=== PATIENT | female | born 1965 | race Two or more races ===

== ENCOUNTER 2016-10-06 19:42 | Emergency (ER) | payer MEDICAID ==
--- NOTE | 2016-10-06 19:45 | ED Physician Chart ---
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 Also has acute, nonproductive, moderate, worse at night, cough 4 days. Has associated upper respiratory congestion. Denies fevers, shortness of breath, chest pain or palpitations, nausea, vomiting, abdominal pain, gross hematuria, gross blood in stool. Allergies:: Allergies Allergy/AdvReac Type Severity Reaction Status Date / Time No Known Allergies Allergy Verified 01/15/16 11:22 Historian:: Patient Review:: Nurse's Note Reviewed Review of Systems - Review of Systems Other: Complete system review otherwise unremarkable except as noted in history of present illness. Past Medical History - Past Medical History Past Medical History: HTN, DM, Dyslipidemia Family History: None Social History: Non Smoker, No Alcohol, No Drug Use, Other Surgical History: None Psychiatricy History: None Medication: Reviewed Family Medical History - Family Member Mother History Unknown: Yes Ethnicity: Living Status: Hx Family Cancer: No Hx Family Coronary Artery Disease: No Hx Family Congestive Heart Failure: No Hx Family Hypertension: No Physical Exam - Physical Examination Other:: INITIAL VITAL SIGNS: Reviewed by me GENERAL: Alert and interactive. No acute distress HEAD: Head is normocephalic and atraumatic EYES: EOMI. PERRL. No scleral icterus. No conjunctival injection ENT: Moist mucous membranes. NECK: Supple. No masses. Full range of motion RESPIRATORY: No tachypnea. Prolonged expiratory phase bilaterally otherwise clear to auscultation. No wheezing, rales, or rhonchi CV: Regular rate and rhythm. No murmurs, rubs, or gallops ABDOMEN: Soft, non-distended, slight suprapubic tenderness. No guarding. No rebound. No masses. EXTREMITIES: No deformity. No cyanosis. No edema. SKIN: Warm and dry. No obvious rashes. NEUROLOGIC: Alert and oriented. Face is symmetric. Speech is normal. Moves all extremities equally. Motor and sensory distally intact. Labs/Radiology/EKG Results - Lab Results Results: Lab Results 10/06/16 10/06/16 10/06/16 Range/Units 20:00 20:00 20:08 WBC 7.6 D (4.8-10.8) Th/cmm RBC 4.51 (3.80-5.10) Mil/cmm Hgb 12.5 (11.7-15.5) gm/dL Hct 37.4 (35.0-45.0) % MCV 82.8 (81-100) fl MCH 27.7 (27.0-31.0) pg MCHC Differential 33.5 (28.0-36.0) pg RDW 13.3 (11.5-20.0) % Plt Count 385 D (150-400) Th/cmm MPV 6.7 fl Neutrophils % 63.7 (40.0-80.0) % Lymphocytes % 27.5 (20.0-50.0) % Monocytes % 5.6 (2.0-10.0) % Eosinophils % 2.8 (0.0-5.0) % Basophils % 0.4 (0.0-2.0) % Sodium (136-145) mEq/L Potassium (3.5-5.1) mEq/L Chloride (98-107) mEq/L Carbon Dioxide (21.0-31.0) mEq/L Anion Gap (7.0-16.0) BUN (7-25) mg/dL Creatinine (0.6-1.2) mg/dL Est GFR ( Amer) (>90) ml/min Est GFR (Non-Af Amer) ml/min BUN/Creatinine Ratio Glucose (70-105) mg/dL Calcium (8.6-10.3) mg/dL Total Bilirubin (0.3-1.0) mg/dL AST (13-39) U/L ALT (7-52) U/L Alkaline Phosphatase (34-104) U/L Total Protein (6.0-8.3) gm/dL Albumin (3.7-5.3) gm/dL Globulin gm/dL Albumin/Globulin Ratio (1.0-1.8) Urine Source CLEAN C Urine Color YELLOW Urine Clarity CLOUDY H (CLEAR) Urine pH 6.5 Ur Specific [place] 1.020 (1.005-1.030) Urine Protein NEGATIVE (NEGATIVE) mg/dL Urine Glucose (UA) NEGATIVE (NEGATIVE) mg/dL Urine Ketones NEGATIVE (NEGATIVE) mg/dL Urine Blood MODERATE H (NEGATIVE) Urine Nitrate NEGATIVE (NEGATIVE) Urine Bilirubin NEGATIVE (NEGATIVE) Urine Urobilinogen 0.2 (0.2 - 1.0) E.U./dL Ur Leukocyte Esterase MODERATE H (NEGATIVE) Urine RBC 5-10 H (0-5) /hpf Urine WBC 6-10 H (0-5) /hpf Ur Epithelial Cells NONE SEEN (FEW) /lpf Urine Bacteria NONE SEEN (NONE SEEN) /hpf Urine Test NEGATIVE 10/06/16 Range/Units 20:08 WBC (4.8-10.8) Th/cmm RBC (3.80-5.10) Mil/cmm Hgb (11.7-15.5) gm/dL Hct (35.0-45.0) % MCV (81-100) fl MCH (27.0-31.0) pg MCHC Differential (28.0-36.0) pg RDW (11.5-20.0) % Plt Count (150-400) Th/cmm MPV fl Neutrophils % (40.0-80.0) % Lymphocytes % (20.0-50.0) % Monocytes % (2.0-10.0) % Eosinophils % (0.0-5.0) % Basophils % (0.0-2.0) % Sodium 141 (136-145) mEq/L Potassium 4.0 (3.5-5.1) mEq/L Chloride 101 (98-107) mEq/L Carbon Dioxide 26.2 (21.0-31.0) mEq/L Anion Gap 17.8 H (7.0-16.0) BUN 9 (7-25) mg/dL Creatinine 0.7 (0.6-1.2) mg/dL Est GFR ( Amer) > 60.0 (>90) ml/min Est GFR (Non-Af Amer) > 60.0 ml/min BUN/Creatinine Ratio 12.9 Glucose 145 H (70-105) mg/dL Calcium 9.9 (8.6-10.3) mg/dL Total Bilirubin 1.0 (0.3-1.0) mg/dL AST 13 (13-39) U/L ALT 18 (7-52) U/L Alkaline Phosphatase 80 (34-104) U/L Total Protein 7.8 (6.0-8.3) gm/dL Albumin 4.3 (3.7-5.3) gm/dL Globulin 3.5 gm/dL Albumin/Globulin Ratio 1.2 (1.0-1.8) Urine Source Urine Color Urine Clarity (CLEAR) Urine pH Ur Specific [place] (1.005-1.030) Urine Protein (NEGATIVE) mg/dL Urine Glucose (UA) (NEGATIVE) mg/dL Urine Ketones (NEGATIVE) mg/dL Urine Blood (NEGATIVE) Urine Nitrate (NEGATIVE) Urine Bilirubin (NEGATIVE) Urine Urobilinogen (0.2 - 1.0) E.U./dL Ur Leukocyte Esterase (NEGATIVE) Urine RBC (0-5) /hpf Urine WBC (0-5) /hpf Ur Epithelial Cells (FEW) /lpf Urine Bacteria (NONE SEEN) /hpf Urine Test - Radiology Results Results: Single AP VIEW Portable Chest X-ray was interpreted independently and contemporaneously by Jorge Ponce MD: No cardiomegaly Normal mediastinum No lung infiltrates No pneumothorax No soft tissue or bony abnormalities ED Septic Shock - . Is Septic Shock (SBP<90, OR Lactate>4 mmol\L) present?: No Reassessment (Disposition) - Reassessment Reassessment:: Patient has cough 2 weeks. Has acute bronchitis. UTI per UA. We'll prescribe Macrobid. Recommend follow up PCP 1-2 days. Return to ER precautions. Patient understands and agrees the plan. Reassessment Condition:: Improved - Diagnosis Diagnosis:: Acute cough due to Acute bronchitis, unspecified Acute urinary tract infection - Aftercare/Follow up Instructions Aftercare/Follow-Up Instructions:: Counseled pt regarding lab results/diagnosis & need follow up, Refer to Discharge Instructions Medication Prescribed:: Macrobid Ibuprofen Tessalon Perles - Patient Disposition Time:: 21:22 Condition at Disposition:: Improved ED Discharge Plan - Patient Disposition Admit/Discharge/Transfer: PT DISCHARGED HOME Condition at Disposition: Improved Instructions: Bronchitis, [id number], Urinary Tract Infection
[2016-10-06] MEDS ORDERED: Sodium Chloride 0.9% 1,000 ML IV ONE (20:12)
[2016-10-06] MEDS ORDERED: Dexamethasone Sodium Phos 4 mg/mL Vial IVP STA (20:14)
[2016-10-06 20:16] LABS: % BASOPHILS 0.4 % (0.0-2.0); % EOSINOPHILS 2.8 % (0.0-5.0); % LYMPHOCYTES 27.5 % (20.0-50.0); % MONOCYTES 5.6 % (2.0-10.0); % NEUTROPHILS 63.7 % (40.0-80.0); HEMATOCRIT 37.4 % (35.0-45.0); HEMOGLOBIN 12.5 gm/dL (11.7-15.5); MEAN CELL VOLUME 82.8 fl (81-100); MEAN CORPUSCULAR HEMOGLOBIN 27.7 pg (27.0-31.0); MEAN CORPUSCULAR HGB CONC 33.5 pg (28.0-36.0); MEAN PLATELET VOLUME 6.7 fl; NEUTROPHILE ABSOLUTE 4.9 Th/cmm (1.8-8.0); RED BLOOD COUNT 4.51 Mil/cmm (3.80-5.10); RED CELL DISTRIBUTION WIDTH 13.3 % (11.5-20.0)
[2016-10-06] MEDS ORDERED: Dexamethasone Sodium Phos 10 mg/mL PF Vial ONE (20:22)
[2016-10-06 20:36] LABS: ALB/GLOB RATIO 1.2 (1.0-1.8); ALKALINE PHOSPHATASE 80 U/L (34-104); ANION GAP 17.8 (7.0-16.0); BUN - UREA NITROGEN 9 mg/dL (7-25); BUN/CREATININE RATIO 12.9; CALCIUM SERUM 9.9 mg/dL (8.6-10.3); CARBON DIOXIDE 26.2 mEq/L (21.0-31.0); CHLORIDE 101 mEq/L (98-107); CREATININE - SERUM 0.7 mg/dL (0.6-1.2); GLUCOSE 145 mg/dL (70-105); SGOT 13 U/L (13-39); SGPT/ALT 18 U/L (7-52); SODIUM SERUM 141 mEq/L (136-145)
[2016-10-06 20:39] LABS: WHITE BLOOD COUNT 7.6 Th/cmm (4.8-10.8)
[2016-10-06 20:40] LABS: PLATELET COUNT 385 Th/cmm (150-400)
[2016-10-06 20:42] LABS: URINE BILIRUBIN NEGATIVE (NEGATIVE); URINE BLOOD MODERATE (NEGATIVE); URINE COLOR YELLOW; URINE GLUCOSE (UA) NEGATIVE (NEGATIVE); URINE KETONE NEGATIVE (NEGATIVE); URINE PH 6.5; URINE PROTEIN NEGATIVE (NEGATIVE); URINE UROBILINOGEN 0.2 E.U./dL (0.2 - 1.0)
[2016-10-06 20:43] LABS: URINE BACTERIA NONE SEEN /hpf (NONE SEEN); URINE EPITHELIAL CELLS NONE SEEN /lpf (FEW)
[2016-10-06] MEDS ORDERED: Morphine Sulfate 2 mg/mL 1mL Syr IVP ONE (21:34)
[2016-10-06] MEDS ORDERED: Morphine Sulfate 2 mg/mL 1mL Syr ONE (21:36)
--- NOTE | 2016-10-07 09:41 | Diagnostic Imaging Report ---
CHEST X-RAY: AP view INDICATION: Cough COMPARISON: 01/28/2016 FINDINGS: There is no focal consolidation or pleural effusions The heart is normal in size. The osseous structures demonstrate no acute abnormalities. IMPRESSION: No focal airspace consolidation identified.
== END 2016-10-06 21:55 | disposition home or self-care (01) ==
LOC: ER 19:42
DX: N39.0 Urinary tract infection, site not specified (principal); J20.9 Acute bronchitis, unspecified; I10 Essential (primary) hypertension; E11.9 Type 2 diabetes mellitus without complications; E78.5 Hyperlipidemia, unspecified
CPT/HCPCS: 99285; 96374; 96375; 71010; 36415; 85025; 81001; 81025; 80053; J2270; J1885; J2405; J7030

== ENCOUNTER 2016-10-14 10:13 | Emergency (ER) | payer MEDICAID ==
[2016-10-14 10:35] VITALS: BP 124/69
--- NOTE | 2016-10-14 11:17 | ED Physician Chart ---
Chief Complaint/HPI - Patient Information Date Seen:: 10/14/16 Time Seen:: 11:12 Chief Complaint:: abd pain History of Present Illness:: pt reports severe pain low pelvis w rad to low back x 1 week. was seen at [facility] last nt and had ct and labs...was dxd w pyelonephritis and given a abx pill. was giv3n rx for abx but hasnt filled. has worse pain and nausea this am. no vomiting. no fever but had chills 3 d.a. no change bm. she was dxd recently w a vaginal-rectal fistula and is having trouble determining how to get to sx for this. s/p hysterectomy 06/17/16 has dm,htn chronic migraaines(on norco for), vag-rect fistula, htn, gastritis, hernia x 2 Allergies:: Allergies Allergy/AdvReac Type Severity Reaction Status Date / Time No Known Allergies Allergy Verified 01/15/16 11:22 Vitals:: Vital Signs - 8 hr 10/14/16 10/14/16 10:35 10:36 Temp 98.2 F HR 74 RR 16 BP 124/69 124/69 O2 Sat % 98 Historian:: Patient Review of Systems - Review of Systems General/Constitutional: No fever, No chills, No weight loss, No weakness, No diaphoresis, No edema, No loss of appetite Skin: No skin lesions, No rash, No bruising Head: No headache, No light-headedness Eyes: No loss of vision, No pain, No diplopia ENT: No earache, No nasal drainage, No sore throat, No tinnitus Neck: No neck pain, No swelling, No thyromegaly, No stiffness, No mass noted Cardio Vascular: No chest pain, No palpitations, No PND, No orthopnea, No edema Pulmonary: No SOB, No cough, No sputum, No wheezing GI: Nausea, No vomiting, No diarrhea, Pain, No melena, No hematochezia, No constipation, No hematemesis G/U: No dysuria, No frequency, No hematuria Correctional Lieutenant: Vaginal discharge (occas slt bloody) Musculoskeletal: No bone or joint pain, No back pain, No muscle pain Endocrine: No polyuria, No polydipsia Psychiatric: No prior psych history, No depression, No anxiety, No suicidal ideation Hematopoietic: No bruising, No lymphadenopathy Allergic/Immuno: No urticaria, No angioedema Neurological: No syncope, No focal symptoms, No weakness, No paresthesia, No headache, No seizure, No dizziness, No confusion, No vertigo Past Medical History - Past Medical History Past Medical History: HTN, DM, PUD/GERD, Other (dm,htn chronic migraaines(on norco for), vag-rect fistula, htn, gastritis, hernia x 2) Social History: Other (lives w family) Surgical History: Hysterectomy Medication: Reviewed Family Medical History - Family Member Mother History Unknown: Yes Ethnicity: Living Status: Hx Family Cancer: No Hx Family Coronary Artery Disease: No Hx Family Congestive Heart Failure: No Hx Family Hypertension: No Physical Exam - Physical Examination General/Constitutional: Awake, Well-developed, well-nourished, Alert, No distress, GCS 15, Non-toxic appearing, Ambulatory Other Gen/Cons comments:: mod obese/alert seems upset...speaks very good thai but prefers to speak sp and let dtr translate usually. wn/wh. Head: Atraumatic Eyes: Lids, conjuctiva normal, PERRL, EOMI Skin: Nl inspection, No rash, No skin lesions, No ecchymosis, Well hydrated, No lymphadenopathy ENMT: External ears, nose nl, Nasal exam nl, Lips, teeth, gums nl Neck: Nontender, Full ROM w/o pain, No JVD, No nuchal rigidity, No bruit, No mass, No stridor Respiratory: Nl effort/Exclusion, Clear to Auscultation, No Wheeze/Rhonchi/Rales Cardio Vascular: RRR, No murmur, gallop, rubs, NL S1 S2 GI: No organomegaly, No hernia, Normal BS's, Nondistended, No mass/bruits, No McBurney tenderness Other GI comments:: tndr low abd and cva regions bilat. ok mobility. pos nabs. no rebound tndr. : No CVA tenderness Extremities: No tenderness or effusion, Full ROM, normal strength in all extremities, No edema, Normal digits & nails Neuro/Psych: Alert/oriented, DTR's symmetric, Normal sensory exam, Normal motor strength, Mood normal, Normal gait, No focal deficits Misc: normal gait, Normal back, No paraspinal tenderness Labs/Radiology/EKG Results - Lab Results Results: Laboratory Tests 10/14/16 10/14/16 10/14/16 10:45 10:45 11:23 WBC 7.0 RBC 4.29 Hgb 12.2 Hct 35.2 MCV 82.1 MCH 28.5 MCHC Differential 34.8 RDW 13.2 Plt Count 287 D MPV 7.0 Neutrophils % 63.9 Lymphocytes % 26.4 Monocytes % 6.3 Eosinophils % 2.5 Basophils % 0.9 Sodium Potassium Chloride Carbon Dioxide Anion Gap BUN Creatinine Est GFR ( Amer) Est GFR (Non-Af Amer) BUN/Creatinine Ratio Glucose Hemoglobin A1c % Calcium Total Bilirubin AST ALT Alkaline Phosphatase Total Protein Albumin Globulin Albumin/Globulin Ratio Urine Source CLEAN C Urine Color YELLOW Urine Clarity CLEAR Urine pH 7.0 Ur Specific [place] 1.010 Urine Protein NEGATIVE Urine Glucose (UA) NEGATIVE Urine Ketones NEGATIVE Urine Blood TRACE Urine Nitrate NEGATIVE Urine Bilirubin NEGATIVE Urine Urobilinogen 0.2 Ur Leukocyte Esterase NEGATIVE Urine RBC 1-3 Urine WBC 2-5 Ur Epithelial Cells FEW Urine Bacteria NONE SEEN Urine Test NEGATIVE 10/14/16 10/14/16 11:23 11:23 WBC RBC Hgb Hct MCV MCH MCHC Differential RDW Plt Count MPV Neutrophils % Lymphocytes % Monocytes % Eosinophils % Basophils % Sodium 137 Potassium 4.2 Chloride 103 Carbon Dioxide 25.8 Anion Gap 12.4 BUN 13 Creatinine 0.7 Est GFR ( Amer) > 60.0 Est GFR (Non-Af Amer) > 60.0 BUN/Creatinine Ratio 18.6 Glucose 186 H Hemoglobin A1c % 6.4 H Calcium 9.5 Total Bilirubin 1.3 H AST 16 ALT 25 Alkaline Phosphatase 78 Total Protein 7.2 Albumin 4.1 Globulin 3.1 Albumin/Globulin Ratio 1.3 Urine Source Urine Color Urine Clarity Urine pH Ur Specific [place] Urine Protein Urine Glucose (UA) Urine Ketones Urine Blood Urine Nitrate Urine Bilirubin Urine Urobilinogen Ur Leukocyte Esterase Urine RBC Urine WBC Ur Epithelial Cells Urine Bacteria Urine Test - Radiology Results Results: ct abd/p result reviewed from 10/13/16 essentially nrml study. fistula was not seen. uterous sx absent. no inflamation or free air. mild diverticulosis, small fat protrusion into umbilicus also reviewed w family ct abd/p from 07/24 which showed pt "may have a vaginal- colonic fistula" ED Septic Shock - . Is Septic Shock (SBP<90, OR Lactate>4 mmol\\L) present?: No - <6hrs of presentation: Vital Signs: Vital Signs - 8 hr 10/14/16 10/14/16 10:35 10:36 Temp 98.2 F HR 74 RR 16 BP 124/69 124/69 O2 Sat % 98 Reassessment (Disposition) - Reassessment Reassessment:: case dw dr mcfarland (2;56) says she admitted pt here 1 ma and couldnt do much for her here bc sx here are not contracted to her insurance. i agree...in my opinion pt seems ok for dc home ...seems stable. no n/v seen in ed. pt c/o pain but admits it has dropped from 03/16 to 11/14 ...am giving additional dose of ms now. pt seems convinced that fistula repair would be considered if she was admit...have tried to explain mult x this is unlikely ; however I think this was the main reason pt here today. will dc w levaquin rx. pt has norco at home. may return if severe n/v and dehydration or worse pain or high fever. Reassessment Condition:: Improved - Diagnosis Diagnosis:: 1 pyelonephritis 2 abdominal pain 3 vaginal-rectal fistula by history - Aftercare/Follow up Instructions Aftercare/Follow-Up Instructions:: Counseled pt & family regarding lab results/ diagnosis & need follow up Notes:: rx levaquin 500/dx2wk. dw pt need to see pmd for sx referral. may return if worse pain or n/v dehydration or high fever. - Patient Disposition Discharge/Transfer:: Home Condition at Disposition:: Improved
[2016-10-14] MEDS ORDERED: Morphine Sulfate 4 mg/mL 1mL Syr ONE ×2 (11:26→14:59)
[2016-10-14 11:31] LABS: % BASOPHILS 0.9 % (0.0-2.0); % EOSINOPHILS 2.5 % (0.0-5.0); % LYMPHOCYTES 26.4 % (20.0-50.0); % MONOCYTES 6.3 % (2.0-10.0); % NEUTROPHILS 63.9 % (40.0-80.0); HEMATOCRIT 35.2 % (35.0-45.0); HEMOGLOBIN 12.2 gm/dL (11.7-15.5); MEAN CELL VOLUME 82.1 fl (81-100); MEAN CORPUSCULAR HEMOGLOBIN 28.5 pg (27.0-31.0); MEAN CORPUSCULAR HGB CONC 34.8 pg (28.0-36.0); NEUTROPHILE ABSOLUTE 4.5 Th/cmm (1.8-8.0); RED BLOOD COUNT 4.29 Mil/cmm (3.80-5.10); RED CELL DISTRIBUTION WIDTH 13.2 % (11.5-20.0)
[2016-10-14 11:35] LABS: PLATELET COUNT 287 Th/cmm (150-400)
[2016-10-14] MEDS: Sodium Chloride 0.9% 1,000 ML IV ONE (11:37)
[2016-10-14 11:45] LABS: ALB/GLOB RATIO 1.3 (1.0-1.8); ALKALINE PHOSPHATASE 78 U/L (34-104); ANION GAP 12.4 (7.0-16.0); BILIRUBIN,TOTAL 1.3 mg/dL (0.3-1.0); BUN - UREA NITROGEN 13 mg/dL (7-25); BUN/CREATININE RATIO 18.6; CALCIUM SERUM 9.5 mg/dL (8.6-10.3); CARBON DIOXIDE 25.8 mEq/L (21.0-31.0); CHLORIDE 103 mEq/L (98-107); CREATININE - SERUM 0.7 mg/dL (0.6-1.2); GLUCOSE 186 mg/dL (70-105); POTASSIUM SERUM 4.2 mEq/L (3.5-5.1); SGOT 16 U/L (13-39); SGPT/ALT 25 U/L (7-52); SODIUM SERUM 137 mEq/L (136-145)
[2016-10-14 11:50] LABS: URINE COLOR YELLOW
[2016-10-14 11:52] LABS: URINE BILIRUBIN NEGATIVE (NEGATIVE); URINE BLOOD TRACE (NEGATIVE); URINE GLUCOSE (UA) NEGATIVE (NEGATIVE); URINE KETONE NEGATIVE (NEGATIVE)
[2016-10-14 11:53] LABS: URINE PROTEIN NEGATIVE (NEGATIVE); URINE UROBILINOGEN 0.2 E.U./dL (0.2 - 1.0)
[2016-10-14 11:56] LABS: URINE BACTERIA NONE SEEN /hpf (NONE SEEN); URINE EPITHELIAL CELLS FEW /lpf (FEW)
[2016-10-14] MEDS ORDERED: Levofloxacin 500mg/100mL 500 MG/100 ML BAG IV ONE (14:30)
[2016-10-14] MEDS: Levofloxacin 500mg/100mL 500 MG/100 ML BAG IV ONE (14:35)
== END 2016-10-14 16:44 | disposition home or self-care (01) ==
LOC: ER 10:13
DX: N12 Tubulo-interstitial nephritis, not specified as acute or chronic (principal); R10.30 Lower abdominal pain, unspecified; I10 Essential (primary) hypertension; E11.9 Type 2 diabetes mellitus without complications; K21.9 Gastro-esophageal reflux disease without esophagitis; Z90.710 Acquired absence of both cervix and uterus
CPT/HCPCS: 99285; 96361; 96365; 96375; 96376; 36415; 85025; 81001; 83036; 81025; 80053; J2405; J1956; J7030

== ENCOUNTER 2016-10-18 21:14 | Emergency (ER) | payer MEDICAID ==
--- NOTE | 2016-10-18 21:28 | ED Physician Chart ---
Chief Complaint/HPI - Patient Information Date Seen:: 10/18/16 Time Seen:: 21:15 Chief Complaint:: Diffuse abdominal pain since about 8:30 pm today. History of Present Illness:: Pt is primarily Sinhala speaking. Interpretation is also provided by her niece Mercedes per pt's request. Pt c/o diffuse abdominal pain since about 8:30 pm today. Pain is characterized as crampy and constant. Pain can be aggravated with movements, improved with lying still. No fever. Transient nausea but no vomiting. Last BM at 6 pm today which was normal in color/consistency. No hematochezia or melena. ? mild dysuria. No frequency or urgency with urination. No vaginal bleeding or discharge. Pt states that she is still on antibiotic therapy for UTI, but she does not recall the name of the antibiotic. Pt had much you product for dinner prior to onset of her abdominal pain. Allergies:: Allergies Allergy/AdvReac Type Severity Reaction Status Date / Time No Known Allergies Allergy Verified 01/15/16 11:22 Vitals:: see Nurse Note. Historian:: Patient Family MD/PCP:: Dr. Lopez LMP:: Hystrectomy 06/17/16. Review:: Nurse's Note Reviewed Review of Systems - Review of Systems General/Constitutional: No fever, No chills, No weight loss, No weakness, No diaphoresis, No edema, No loss of appetite Skin: No rash, No bruising Head: No headache, No light-headedness Eyes: No loss of vision, No pain, No diplopia ENT: No earache, No nasal drainage, No sore throat Neck: No neck pain, No swelling, No thyromegaly, No stiffness, No mass noted Cardio Vascular: No chest pain, No palpitations, No PND, No orthopnea, No edema Pulmonary: No SOB, No cough, No wheezing GI: Nausea (transient), No vomiting, No diarrhea, Pain, No melena, No hematochezia, No constipation, No hematemesis G/U: No dysuria, No frequency, No hematuria Dna Sequencing Associate: No vaginal discharge, No abnormal vaginal bleed Musculoskeletal: No bone or joint pain, No back pain, No muscle pain Endocrine: No polyuria, No polydipsia Psychiatric: No prior psych history Hematopoietic: No bruising, No lymphadenopathy Allergic/Immuno: No urticaria, No angioedema Neurological: No syncope, No focal symptoms, No weakness, No paresthesia, No headache, No confusion Past Medical History - Past Medical History Past Medical History: HTN, DM, Dyslipidemia, PUD/GERD, Other (h/o migraine.) Family History: Diabetes Melitus (mother), HTN (mother) Social History: Non Smoker, No Alcohol, No Drug Use, Single, Other (lives with her sister.) Employment:: unemployed. Surgical History: Hysterectomy, ('04) Psychiatricy History: None Medication: Reviewed Family Medical History - Family Member Mother History Unknown: Yes Ethnicity: Living Status: Hx Family Cancer: No Hx Family Coronary Artery Disease: No Hx Family Congestive Heart Failure: No Hx Family Hypertension: No Physical Exam - Physical Examination General/Constitutional: Awake, Well-developed, well-nourished, Alert, GCS 15 Other Gen/Cons comments:: Breathes comfortably and speaks clearly. Pt is moderate to severe distress due to diffuse abdominal pain. Head: Atraumatic Eyes: Lids, conjuctiva normal, PERRL, EOMI Other Eyes comments:: Anicteric sclera. Skin: Well hydrated, No lymphadenopathy ENMT: External ears, nose nl, Nasal exam nl, Oropharynx nl, Tonsils nl Neck: Nontender, Full ROM w/o pain, No JVD, No nuchal rigidity, No mass, No stridor Respiratory: Nl effort/Exclusion, Clear to Auscultation, No Wheeze/Rhonchi/Rales Cardio Vascular: RRR, No murmur, gallop, rubs GI: No organomegaly, No hernia, Normal BS's, Nondistended, No mass/bruits, No McBurney tenderness Other GI comments:: Obese but soft. Diffuse tenderness to palpation. No R/G. Rectal exam: deferred per pt's request. : No CVA tenderness Other comments:: Pelvic exam: deferred per pt's request. Extremities: No edema Neuro/Psych: Alert/oriented (oriented x 3), Judgement/insight normal, Mood normal, No focal deficits Labs/Radiology/EKG Results - Lab Results Results: Laboratory Tests 10/18/16 10/18/16 10/18/16 21:40 21:50 21:50 WBC 7.2 RBC 4.14 Hgb 11.8 Hct 34.9 L MCV 84.3 MCH 28.5 MCHC Differential 33.8 RDW 13.9 Plt Count 246 MPV 7.0 Neutrophils % 58.0 Lymphocytes % 33.0 Monocytes % 5.7 Eosinophils % 2.8 Basophils % 0.5 PT 9.7 INR 0.93 PTT (Actin FS) 23.6 L Sodium Potassium Chloride Carbon Dioxide Anion Gap BUN Creatinine Est GFR ( Amer) Est GFR (Non-Af Amer) BUN/Creatinine Ratio Glucose Calcium Total Bilirubin AST ALT Alkaline Phosphatase Creatine Kinase Troponin I Total Protein Albumin Globulin Albumin/Globulin Ratio Amylase Lipase Urine Source CLEAN C Urine Color YELLOW Urine Clarity HAZY Urine pH 8.5 Ur Specific [place] 1.020 Urine Protein NEGATIVE Urine Glucose (UA) NEGATIVE Urine Ketones NEGATIVE Urine Blood TRACE Urine Nitrate NEGATIVE Urine Bilirubin NEGATIVE Urine Urobilinogen 1.0 Ur Leukocyte Esterase TRACE H Urine RBC 0-2 Urine WBC 2-5 Ur Epithelial Cells MODERATE Amorphous Sediment MODERATE PHOSPHATES Urine Bacteria MODERATE 10/18/16 10/18/16 10/18/16 21:50 21:50 21:50 WBC RBC Hgb Hct MCV MCH MCHC Differential RDW Plt Count MPV Neutrophils % Lymphocytes % Monocytes % Eosinophils % Basophils % PT INR PTT (Actin FS) Sodium 138 Potassium 3.7 Chloride 106 Carbon Dioxide 26.0 Anion Gap 9.7 BUN 13 Creatinine 0.8 Est GFR ( Amer) > 60.0 Est GFR (Non-Af Amer) > 60.0 BUN/Creatinine Ratio 16.3 Glucose 154 H Calcium 9.1 Total Bilirubin 0.7 AST 19 ALT 29 Alkaline Phosphatase 68 Creatine Kinase 49 Troponin I 0.02 Total Protein 6.4 Albumin 3.8 Globulin 2.6 Albumin/Globulin Ratio 1.5 Amylase 50 Lipase 71 Urine Source Urine Color Urine Clarity Urine pH Ur Specific Seth Urine Protein Urine Glucose (UA) Urine Ketones Urine Blood Urine Nitrate Urine Bilirubin Urine Urobilinogen Ur Leukocyte Esterase Urine RBC Urine WBC Ur Epithelial Cells Amorphous Sediment Urine Bacteria - Radiology Results Results: CT abdomen and pelvis: Evidence of hepatic fatty infiltration. Small calcified gallstone. No pericholecystic inflammatory changes identified. No evidence of biliary dilatation. Spleen and pancreas are unremarkable. Kidneys are of normal size bilaterally with no evidence of hydronephrosis. Contrast within collecting systems limits evaluation for renal calculi. Small fat-containing umbilical hernia. No evidence of bowel obstruction. No evidence of appendicitis. Mild colonic diverticulosis without evidence of diverticulitis. Official report per Dr. Travis Posadas, radiologist. - EKG Interpretations EKG Time:: 21:11 Rate & Rhythm: NSR with VR 81 Comments:: NSSTT changes. ED Septic Shock - . Is Septic Shock (SBP<90, OR Lactate>4 mmol\L) present?: No Reassessment (Disposition) - Reassessment Reassessment:: 0050 Pt has been repeatedly evaluated. Pt feels much better without any significant abdominal pain or discomfort. Remaining lab and CT report just became available. Lab and CT findings have been reviewed with pt. Pt requests to go home now and does not want further observation/management in hospital. Pt states that she will follow with her PCP Dr. Lopez tomorrow. Aftercare instructions have been given. Interpretation is provided by her niece Mercedes, who will also drive her home and care for her Reassessment Condition:: Improved - Diagnosis Diagnosis:: Transient diffuse abdominal pain c/w gas pain, stable and improved. - Aftercare/Follow up Instructions Aftercare/Follow-Up Instructions:: Refer to Discharge Instructions Notes:: Avoid gas producing foodstuffs such as you, carbonated beverages, etc. Clear liquid diet for now. Abdominal pain instructions given. Drowsiness precautions given with the use of Dilaudid. F/U with PCP Dr. Lopez in one day for recheck. Return to ER immediately if condition worsens or if any further questions/problems. Medication Prescribed:: None - Patient Disposition Discharge/Transfer:: Home Time:: 01:05 Condition at Disposition:: Stable, Improved
[2016-10-18 21:57] LABS: % BASOPHILS 0.5 % (0.0-2.0); % EOSINOPHILS 2.8 % (0.0-5.0); % MONOCYTES 5.7 % (2.0-10.0); HEMATOCRIT 34.9 % (35.0-45.0); HEMOGLOBIN 11.8 gm/dL (11.7-15.5); MEAN CELL VOLUME 84.3 fl (81-100); MEAN CORPUSCULAR HEMOGLOBIN 28.5 pg (27.0-31.0); MEAN CORPUSCULAR HGB CONC 33.8 pg (28.0-36.0); NEUTROPHILE ABSOLUTE 4.2 Th/cmm (1.8-8.0); PLATELET COUNT 246 Th/cmm (150-400); RED BLOOD COUNT 4.14 Mil/cmm (3.80-5.10); RED CELL DISTRIBUTION WIDTH 13.9 % (11.5-20.0); WHITE BLOOD COUNT 7.2 Th/cmm (4.8-10.8)
[2016-10-18 22:11] LABS: AMYLASE SERUM 50 U/L (29-103); LIPASE 71 U/L (11-82)
[2016-10-18 22:12] LABS: INR 0.93 (0.5-1.4); PROTHROMBIN TIME (TEST) 9.7 SECONDS (9.5-11.5)
[2016-10-18 22:21] LABS: ALB/GLOB RATIO 1.5 (1.0-1.8); ALKALINE PHOSPHATASE 68 U/L (34-104); ANION GAP 9.7 (7.0-16.0); BILIRUBIN,TOTAL 0.7 mg/dL (0.3-1.0); BUN - UREA NITROGEN 13 mg/dL (7-25); BUN/CREATININE RATIO 16.3; CALCIUM SERUM 9.1 mg/dL (8.6-10.3); CHLORIDE 106 mEq/L (98-107); CREATININE - SERUM 0.8 mg/dL (0.6-1.2); GLUCOSE 154 mg/dL (70-105); POTASSIUM SERUM 3.7 mEq/L (3.5-5.1); SGOT 19 U/L (13-39); SGPT/ALT 29 U/L (7-52); SODIUM SERUM 138 mEq/L (136-145)
[2016-10-18] MEDS ORDERED: IOHEXOL 300MG/ML 100 ML VIAL ONE (22:25)
[2016-10-18] MEDS ORDERED: HYDROmorphone 1 mg/mL 1mL Syr ONE (22:26)
[2016-10-18] MEDS: HYDROmorphone 1 mg/mL 1mL Syr IVP STA (22:31)
[2016-10-18 22:45] LABS: URINE COLOR YELLOW
[2016-10-18 22:46] LABS: URINE BACTERIA MODERATE /hpf (NONE SEEN); URINE BILIRUBIN NEGATIVE (NEGATIVE); URINE BLOOD TRACE (NEGATIVE); URINE EPITHELIAL CELLS MODERATE /lpf (FEW); URINE GLUCOSE (UA) NEGATIVE (NEGATIVE); URINE KETONE NEGATIVE (NEGATIVE); URINE PH 8.5; URINE PROTEIN NEGATIVE (NEGATIVE); URINE RBC 0-2 /hpf (0-5)
[2016-10-18 22:47] LABS: URINE AMORPHOUS SEDIMENT MODERATE PHOSPHATES (NONE SEEN)
--- NOTE | 2016-10-19 11:29 | Diagnostic Imaging Report ---
CT abdomen and pelvis with intravenous contrast Indication: Diffuse abdominal pain Comparison: Previous CT abdomen and pelvis on 01/28/2016, Technique: Axial images were obtained from the lung bases to the bilateral proximal femurs with IV contrast. Coronal reconstructions were made. total DLP: [id number], CTDI12.9 FINDINGS: Hypoventilatory changes of the lung bases are noted. There is fatty infiltration of the liver. No evidence of focal hepatic lesions. Small calcified gallstone is noted. No evidence of surrounding inflammatory change. No focal splenic or pancreatic lesions. No focal adrenal lesions. No evidence of hydronephrosis or focal renal lesions. Moderate stool is noted. No evidence of acute appendicitis. Minimal diverticulosis. No diverticulitis. No evidence of free air or free fluid. Mild atherosclerosis is noted. Degenerative changes of the spine are noted. Small fat-containing hernia is seen along the umbilicus region. IMPRESSION: No evidence of acute appendicitis. No evidence of bowel obstruction. Small calcified gallstone. Consider follow-up with ultrasound. Minimal diverticulosis without diverticulitis. Small fat-containing hernia along the umbilical region. Fatty infiltration of the liver.
== END 2016-10-19 01:00 | disposition home or self-care (01) ==
LOC: ER 21:14
DX: R10.84 Generalized abdominal pain (principal); I10 Essential (primary) hypertension; E11.9 Type 2 diabetes mellitus without complications; E78.5 Hyperlipidemia, unspecified; K21.9 Gastro-esophageal reflux disease without esophagitis; Z90.710 Acquired absence of both cervix and uterus
CPT/HCPCS: 99285; 96374; 96375; 93005; 74177; 84484; 36415; 85025; 85610; 81001; 82150; 82550; 83690; 80053; J2405; J1170; Q9967

== ENCOUNTER 2017-03-05 18:06 | Emergency (ER) | payer MEDICAID ==
--- NOTE | 2017-03-05 18:45 | ED Physician Chart ---
ED Chief Complaint/HPI - Patient Information Date Seen:: 03/05/17 Time Seen:: 18:39 Chief Complaint:: right chest wall lesion History of Present Illness:: THIS IS A 51 YO FEMALE WHO PRESENTS FOR AN EVALUATION OF A LESION THAT STARTED ABOUT A MONTH AGO. SHE ALSO IS SCHEDULED FOR A RIGHT BREAST BIOPSY. SHE HAS DIABETES MELLITUS, ELEVATED LIPIDS AND HYPERTENSION. Allergies:: Allergies Allergy/AdvReac Type Severity Reaction Status Date / Time No Known Allergies Allergy Verified 10/18/16 21:29 Vitals:: Vital Signs - 8 hr 03/05/17 18:27 Temp 97.8 F HR 91 RR 15 BP 110/76 O2 Sat % 95 Historian:: Patient Review:: Nurse's Note Reviewed, Old Chart Reviewed, Transfer documents Reviewed ED Review of Systems - Review of Systems General/Constitutional: No fever, No chills, No weight loss, No weakness, No diaphoresis, No edema, No loss of appetite Skin: Skin lesions (RIGHT ANTERIOR CHEST WALL ABSCESS NOTED ABOUT 2 CM IN DIAMETER.), No rash, No bruising Head: No headache, No light-headedness Eyes: No loss of vision, No pain, No diplopia ENT: No earache, No nasal drainage, No sore throat, No tinnitus Neck: No neck pain, No swelling, No thyromegaly, No stiffness, No mass noted Cardio Vascular: No chest pain, No palpitations, No PND, No orthopnea, No edema Pulmonary: No SOB, No cough, No sputum, No wheezing GI: No nausea, No vomiting, No diarrhea, No pain, No melena, No hematochezia, No constipation, No hematemesis G/U: No dysuria, No frequency, No hematuria Musculoskeletal: No bone or joint pain, No back pain, No muscle pain Endocrine: No polyuria, No polydipsia Psychiatric: No prior psych history, No depression, No anxiety, No suicidal ideation Hematopoietic: No bruising, No lymphadenopathy Allergic/Immuno: No urticaria, No angioedema Neurological: No syncope, No focal symptoms, No weakness, No paresthesia, No headache, No seizure, No dizziness, No confusion, No vertigo ED Past Medical History - Past Medical History Obtainable: Yes Past Medical History: HTN, DM, Dyslipidemia Family History: None Social History: Non Smoker, No Alcohol, No Drug Use, Employed Surgical History: Hysterectomy, Psychiatricy History: None Medication: Reviewed Family Medical History - Family Member Mother History Unknown: Yes Ethnicity: Living Status: Hx Family Cancer: No Hx Family Coronary Artery Disease: No Hx Family Congestive Heart Failure: No Hx Family Hypertension: No ED Physical Exam - Physical Examination General/Constitutional: Awake, Well-developed, well-nourished, Alert, No distress, GCS 15, Non-toxic appearing, Ambulatory Head: Atraumatic Eyes: Lids, conjuctiva normal, PERRL, EOMI Skin: Nl inspection, No rash, No skin lesions, No ecchymosis, Well hydrated, No lymphadenopathy ENMT: External ears, nose nl, Nasal exam nl, Lips, teeth, gums nl Neck: Nontender, Full ROM w/o pain, No JVD, No nuchal rigidity, No bruit, No mass, No stridor Respiratory: Nl effort/Exclusion, Clear to Auscultation, No Wheeze/Rhonchi/Rales Other Respiratory comments:: RIGHT ANTERIOR CHEST WALL SKIN LESION, INFECTED SEBACEOUS GLAND ABOUT 2 CM IN DIAMETER WITH REDNESS AROUND THE EDGE AND IS TENDER. Cardio Vascular: RRR, No murmur, gallop, rubs, NL S1 S2 GI: No tenderness/rebounding/guarding, No organomegaly, No hernia, Normal BS's, Nondistended, No mass/bruits, No McBurney tenderness : No CVA tenderness Extremities: No tenderness or effusion, Full ROM, normal strength in all extremities, No edema, Normal digits & nails Neuro/Psych: Alert/oriented, DTR's symmetric, Normal sensory exam, Normal motor strength, Judgement/insight normal, Mood normal, Normal gait, No focal deficits Misc: Normal back, No paraspinal tenderness ED Assessment - Assessment General Assessment: INFECTED SEBACEOUS CYST OF THE RIGHT CHEST WALL ED Septic Shock - . Is Septic Shock (SBP<90, OR Lactate>4 mmol\L) present?: No - <6hrs of presentation: Vital Signs: Vital Signs - 8 hr 03/05/17 18:27 Temp 97.8 F HR 91 RR 15 BP 110/76 O2 Sat % 95 ED Reassessment (Disposition) - Reassessment Reassessment Condition:: Unchanged - Diagnosis Diagnosis:: INFECTED SEBACEOUS CYST OF THE RIGHT CHEST WALL - Aftercare/Follow up Instructions Aftercare/Follow-Up Instructions:: Counseled pt regarding lab results/diagnosis & need follow up, Refer to Discharge Instructions, Counseled pt & family regarding lab results/diagnosis & need follow up Medication Prescribed:: SHE WAS INSTRUCTED ON WARM WET SOAKS TO THE CYST FOR 10 MINUTES TWICE A DAY. - Patient Disposition Discharge/Transfer:: Home ED Discharge Plan - Patient Disposition Admit/Discharge/Transfer: PT DISCHARGED HOME Condition at Disposition: Unchanged
== END 2017-03-05 18:58 | disposition home or self-care (01) ==
LOC: ER 18:06
DX: L72.3 Sebaceous cyst (principal); I10 Essential (primary) hypertension; E11.9 Type 2 diabetes mellitus without complications; E78.5 Hyperlipidemia, unspecified
CPT/HCPCS: Z7502

== ENCOUNTER 2017-12-06 16:42 | Inpatient (IN) | payer MEDICAID ==
--- NOTE | 2017-12-06 17:29 | ED Physician Chart ---
ED Chief Complaint/HPI - Patient Information Date Seen:: 12/06/17 Time Seen:: 17:24 Chief Complaint:: WEAKNESS History of Present Illness:: THIS IS A 52 YO FEMALE WHO IS CURRENTLY BEING TREATED FOR BREAST CANCER AND STATES THAT SHE FEELS WEAK AND HAS GENERALIZE PAIN. SHE DENIES NAUSEA AND VOMITING. Allergies:: Allergies Allergy/AdvReac Type Severity Reaction Status Date / Time No Known Allergies Allergy Verified 06/02/17 22:37 Vitals:: Vital Signs - 8 hr 12/06/17 17:16 Temp 98.6 F HR 114 RR 18 BP 136/80 O2 Sat % 98 Historian:: Patient Review:: Nurse's Note Reviewed, Old Chart Reviewed ED Past Medical History - Past Medical History Obtainable: Yes Past Medical History: HTN, DM, Dyslipidemia, PUD/GERD Family History: Diabetes Melitus, HTN Social History: Non Smoker, No Alcohol, No Drug Use Surgical History: Hysterectomy, Family Medical History - Family Member Mother History Unknown: Yes Ethnicity: Living Status: Hx Family Cancer: No Hx Family Coronary Artery Disease: No Hx Family Congestive Heart Failure: No Hx Family Hypertension: No Hx Family Stroke: Yes Hx Family Diabetes: Yes ED Physical Exam - Physical Examination General/Constitutional: Awake, Well-developed, well-nourished, Alert, No distress, GCS 15, Non-toxic appearing, Ambulatory Other Gen/Cons comments:: LETHARGIC Head: Atraumatic Eyes: Lids, conjuctiva normal, PERRL, EOMI Skin: Nl inspection, No rash, No skin lesions, No ecchymosis, Well hydrated, No lymphadenopathy ENMT: External ears, nose nl, Nasal exam nl, Lips, teeth, gums nl Neck: Nontender, Full ROM w/o pain, No JVD, No nuchal rigidity, No bruit, No mass, No stridor Respiratory: Nl effort/Exclusion, Clear to Auscultation, No Wheeze/Rhonchi/Rales Cardio Vascular: RRR, No murmur, gallop, rubs, NL S1 S2 GI: No tenderness/rebounding/guarding (GENERALIZED ABDOMINAL TENDERNESS), No organomegaly, No hernia, Normal BS's, Nondistended, No mass/bruits, No McBurney tenderness : No CVA tenderness Extremities: No tenderness or effusion, Full ROM, normal strength in all extremities, No edema, Normal digits & nails Neuro/Psych: Alert/oriented, DTR's symmetric, Normal sensory exam, Normal motor strength, Judgement/insight normal, Mood normal, Normal gait, No focal deficits Misc: Normal back, No paraspinal tenderness ED Labs/Radiology/EKG Results - Lab Results Results: Abnormal Lab Results 12/06/17 12/06/17 12/06/17 16:13 17:20 17:20 WBC 3.5 L RBC 3.82 Hgb 11.6 L Hct 34.0 L MCV 89.1 MCH 30.3 MCHC Differential 34.0 RDW 15.1 Plt Count 288 MPV 7.5 Neutrophils % 59.9 Lymphocytes % 31.1 Monocytes % 5.0 Eosinophils % 2.5 Basophils % 1.5 PT 10.2 INR 0.98 PTT (Actin FS) 22.1 L Sodium Potassium Chloride Carbon Dioxide Anion Gap BUN Creatinine Est GFR ( Amer) Est GFR (Non-Af Amer) BUN/Creatinine Ratio Glucose Whole Bld Lactic Acid Calcium Total Bilirubin AST ALT Alkaline Phosphatase Troponin I Total Protein Albumin Globulin Albumin/Globulin Ratio Urine Source CLEAN C Urine Color YELLOW Urine Clarity HAZY Urine pH 6.0 Ur Specific [place] 1.015 Urine Protein TRACE Urine Glucose (UA) 100 H Urine Ketones NEGATIVE Urine Blood TRACE Urine Nitrate NEGATIVE Urine Bilirubin NEGATIVE Urine Urobilinogen 1.0 Ur Leukocyte Esterase NEGATIVE Urine RBC 2-5 Urine WBC 0-2 Ur Epithelial Cells MODERATE Urine Bacteria NONE SEEN 12/06/17 12/06/17 12/06/17 17:20 17:20 17:20 WBC RBC Hgb Hct MCV MCH MCHC Differential RDW Plt Count MPV Neutrophils % Lymphocytes % Monocytes % Eosinophils % Basophils % PT INR PTT (Actin FS) Sodium 134 L Potassium 3.9 Chloride 101 Carbon Dioxide 22.4 Anion Gap 14.5 BUN 8 Creatinine 0.6 Est GFR ( Amer) > 60.0 Est GFR (Non-Af Amer) > 60.0 BUN/Creatinine Ratio 13.3 Glucose 296 H Whole Bld Lactic Acid 3.16 H* Calcium 9.2 Total Bilirubin 1.6 H AST 90 H ALT 189 H Alkaline Phosphatase 90 Troponin I 0.03 Total Protein 6.3 Albumin 4.1 Globulin 2.2 Albumin/Globulin Ratio 1.9 H Urine Source Urine Color Urine Clarity Urine pH Ur Specific [place] Urine Protein Urine Glucose (UA) Urine Ketones Urine Blood Urine Nitrate Urine Bilirubin Urine Urobilinogen Ur Leukocyte Esterase Urine RBC Urine WBC Ur Epithelial Cells Urine Bacteria - Radiology Results Results: CHEST X-RAY = NAD ED Assessment - Assessment General Assessment: WEAKNESS ED Septic Shock - . Is Septic Shock (SBP<90, OR Lactate>4 mmol\L) present?: No - <6hrs of presentation: Vital Signs: Vital Signs - 8 hr 12/06/17 17:16 Temp 98.6 F HR 114 RR 18 BP 136/80 O2 Sat % 98 ED Reassessment (Disposition) - Reassessment Reassessment Condition:: Improved - Diagnosis Diagnosis:: ABDOMINAL PAIN ELEVATED LACTIC ACID BREAST CANCER - Patient Disposition Discharge/Transfer:: Acute Care w/in this hosp Admitting Medical Physician:: Tashia Jordan Condition at Disposition:: Improved ED Discharge Plan - Patient Disposition Admit/Discharge/Transfer: Acute Care w/in this hosp Condition at Disposition: Improved
[2017-12-06 17:35] LABS: % BASOPHILS 1.5 % (0.0-2.0); % EOSINOPHILS 2.5 % (0.0-5.0); % LYMPHOCYTES 31.1 % (20.0-50.0); % NEUTROPHILS 59.9 % (40.0-80.0); BASOPHILE ABSOLUTE 0.1 Th/cumm (0-0.2); EOSINOPHILE ABSOLUTE 0.1 Th/cmm (0.1-0.4); HEMOGLOBIN 11.6 gm/dL (12-16); LYMPHOCYTE ABSOLUTE 1.1 Th/cmm (1.5-3.0); MEAN CELL VOLUME 89.1 fl (81-100); MEAN CORPUSCULAR HEMOGLOBIN 30.3 pg (27.0-31.0); MEAN PLATELET VOLUME 7.5 fl; MONOCYTE ABSOLUTE 0.2 Th/cmm (0.3-1.0); PLATELET COUNT 288 Th/cmm (150-400); RED BLOOD COUNT 3.82 Mil/cmm (3.80-5.10); RED CELL DISTRIBUTION WIDTH 15.1 % (11.5-20.0)
[2017-12-06 17:36] LABS: URINE BILIRUBIN NEGATIVE (NEGATIVE); URINE BLOOD TRACE (NEGATIVE); URINE GLUCOSE (UA) 100 mg/dL (NEGATIVE); URINE KETONE NEGATIVE (NEGATIVE); URINE LEUKOCYTE ESTERASE NEGATIVE (NEGATIVE); URINE MICROSCOPIC INDICATED? YES; URINE NITRATE NEGATIVE (NEGATIVE); URINE PROTEIN TRACE mg/dL (NEGATIVE); URINE SOURCE CLEAN C
[2017-12-06 17:41] LABS: WHITE BLOOD COUNT 3.5 Th/cmm (4.8-10.8)
[2017-12-06 17:46] LABS: URINE CLARITY HAZY (CLEAR); URINE COLOR YELLOW
[2017-12-06 17:47] LABS: URINE BACTERIA NONE SEEN /hpf (NONE SEEN); URINE EPITHELIAL CELLS MODERATE /lpf (FEW); URINE WBC 0-2 /hpf (0-5)
[2017-12-06 17:48] LABS: ALB/GLOB RATIO 1.9 (1.0-1.8); ALBUMIN 4.1 gm/dL (3.7-5.3); ALKALINE PHOSPHATASE 90 U/L (34-104); ANION GAP 14.5 (7.0-16.0); BILIRUBIN,TOTAL 1.6 mg/dL (0.3-1.0); BUN - UREA NITROGEN 8 mg/dL (7-25); CALCIUM SERUM 9.2 mg/dL (8.6-10.3); CARBON DIOXIDE 22.4 mEq/L (21.0-31.0); CHLORIDE 101 mEq/L (98-107); CREATININE - SERUM 0.6 mg/dL (0.6-1.2); GFR AFRICAN-AMERICAN > 60.0 ml/min (>90); GFR NON AFRICAN-AMERICAN > 60.0 ml/min; GLUCOSE 296 mg/dL (70-105); POTASSIUM SERUM 3.9 mEq/L (3.5-5.1); SGOT 90 U/L (13-39); SGPT/ALT 189 U/L (7-52); SODIUM SERUM 134 mEq/L (136-145); TOTAL PROTEIN,SERUM 6.3 gm/dL (6.0-8.3)
[2017-12-06 17:51] LABS: INR 0.98 (0.5-1.4); PROTHROMBIN TIME (TEST) 10.2 SECONDS (9.5-11.5)
[2017-12-06] MEDS ORDERED: Sodium Chloride 0.45% 1,000 ML IV ONE (17:57)
[2017-12-06 19:15] LABS: A1C % 8.8 % (4.0-6.0)
[2017-12-06] MEDS ORDERED: Piperacillin Sodium/Tazobact 3.375 gm Vial IV ONE (22:41)
[2017-12-06] MEDS: INSULIN ASPART SLIDING SCALE 100 UNITS/ML UNIT SUBQ SCH (22:43)
[2017-12-06] MEDS: Sodium Chloride 0.9% 1,000 ML IV SCH (22:44)
[2017-12-06] MEDS: Morphine Sulfate 2 mg/mL 1mL Syr IVP PRN (23:44)
[2017-12-07] MEDS ORDERED: INSULIN ASPART SLIDING SCALE 100 UNITS/ML UNIT SUBQ SCH
[2017-12-07 02:56] VITALS: BP 116/72
[2017-12-07] MEDS ORDERED: Piperacillin Sodium/Tazobact 3.375 gm Vial IV ONE (04:06)
[2017-12-07 05:11] LABS: % BASOPHILS 1.1 % (0.0-2.0); % EOSINOPHILS 3.1 % (0.0-5.0); % LYMPHOCYTES 41.1 % (20.0-50.0); % MONOCYTES 5.5 % (2.0-10.0); % NEUTROPHILS 49.2 % (40.0-80.0); EOSINOPHILE ABSOLUTE 0.1 Th/cmm (0.1-0.4); HEMOGLOBIN 10.1 gm/dL (12-16); LYMPHOCYTE ABSOLUTE 1.3 Th/cmm (1.5-3.0); MEAN CELL VOLUME 89.3 fl (81-100); MEAN CORPUSCULAR HEMOGLOBIN 31.3 pg (27.0-31.0); MEAN PLATELET VOLUME 7.5 fl; MONOCYTE ABSOLUTE 0.2 Th/cmm (0.3-1.0); NEUTROPHILE ABSOLUTE 1.5 Th/cmm (1.8-8.0); PLATELET COUNT 237 Th/cmm (150-400); RED BLOOD COUNT 3.23 Mil/cmm (3.80-5.10)
[2017-12-07 05:25] LABS: WHITE BLOOD COUNT 3.1 Th/cmm (4.8-10.8)
[2017-12-07 05:26] LABS: HEMATOCRIT 28.8 % (41.0-60)
[2017-12-07 05:37] LABS: ALB/GLOB RATIO 1.9 (1.0-1.8); ALBUMIN 3.5 gm/dL (3.7-5.3); ALKALINE PHOSPHATASE 78 U/L (34-104); ANION GAP 10.8 (7.0-16.0); BILIRUBIN,TOTAL 1.3 mg/dL (0.3-1.0); BUN - UREA NITROGEN 8 mg/dL (7-25); CALCIUM SERUM 8.9 mg/dL (8.6-10.3); CARBON DIOXIDE 24.2 mEq/L (21.0-31.0); CHLORIDE 103 mEq/L (98-107); CREATININE - SERUM 0.7 mg/dL (0.6-1.2); GFR AFRICAN-AMERICAN > 60.0 ml/min (>90); GFR NON AFRICAN-AMERICAN > 60.0 ml/min; GLUCOSE 324 mg/dL (70-105); SGOT 52 U/L (13-39); SGPT/ALT 139 U/L (7-52); SODIUM SERUM 134 mEq/L (136-145); TOTAL PROTEIN,SERUM 5.3 gm/dL (6.0-8.3)
[2017-12-07] MEDS: INSULIN ASPART SLIDING SCALE 100 UNITS/ML UNIT SUBQ SCH ×3 (06:38→18:03)
--- NOTE | 2017-12-07 07:48 | Diagnostic Imaging Report ---
CHEST X-RAY: AP view INDICATION: pain COMPARISON: 06/03/2017 FINDINGS: Left-sided Port-A-Cath is seen with tip in SVC. No focal consolidation or effusions. Heart size is normal. Postsurgical changes right axillary region are noted. The osseous structures are intact. IMPRESSION: Left-sided Port-A-Cath with tip in the SVC. No focal airspace consolidation identified. Postsurgical changes of right axillary region.
[2017-12-07] MEDS ORDERED: Pantoprazole 40 mg/Packet PO SCH (09:00)
[2017-12-07] MEDS: Morphine Sulfate 2 mg/mL 1mL Syr IVP PRN ×2 (09:10→22:01)
[2017-12-07] MEDS: Pantoprazole 40 mg EC Tab PO SCH (10:37)
[2017-12-07] MEDS: buPROPion XL 150 mg T 24 H PO SCH (11:57)
[2017-12-07] MEDS: Sulfamethoxazole/TMP 800/160mg Tab PO SCH ×2 (11:57→17:19)
[2017-12-07] MEDS: Sodium Chloride 0.9% 1,000 ML IV SCH (12:09)
--- NOTE | 2017-12-07 20:36 | History and Physical ---
History of Present Illness - HPI Chief Complaint: nausea, weakness,vomiting HPI: This is a 52 year old female who has a history of breast ca currently undergoing chemotherapy, last chemotherapy last week. Patient has been having increase in weakness, nauseated associated with vomiting. Patient is fatigued. Vital Signs: Last Vital Signs Temp 98.6 F 12/07/17 16:02 Pulse 84 12/07/17 16:02 Resp 18 12/07/17 16:02 BP 135/73 12/07/17 16:02 Pulse Ox 100 12/07/17 16:02 Past Medical History Other History: HTN, DM, Dyslipidemia, PUD/GERD Family Medical History - Family Member Mother History Unknown: Yes Ethnicity: Living Status: Hx Family Cancer: No Hx Family Coronary Artery Disease: No Hx Family Congestive Heart Failure: No Hx Family Hypertension: No Hx Family Stroke: Yes Hx Family Diabetes: Yes Social History Smoke: No Alcohol: None Drugs: None Lives: With Family - Medications Home Medications: Home Medication Medication Instructions Recorded Type traMADol HCl [Ultram*] 50 mg PO Q6HR PRN #45 tab 01/29/16 Rx Bupropion HCl [Bupropion Xl] 300 mg PO DAILY 10/06/16 History Docusate Sodium [Dok] 100 mg PO DAILY 10/06/16 History Gabapentin [Neurontin*] 300 mg PO TID 10/06/16 History Metoprolol Tartrate [Lopressor] 25 mg PO DAILY 10/06/16 History Pantoprazole [Protonix] 40 mg PO DAILY 10/06/16 History Simvastatin [Zocor] 40 mg PO DAILY 10/06/16 History metFORMIN [Glucophage] 500 mg PO DAILY 10/06/16 History Sulfamethoxazole/TMP [Bactrim Ds] 1 tab PO BID #14 tab 06/03/17 Rx - Allergies Allergies/Adverse Reactions: Allergies Allergy/AdvReac Type Severity Reaction Status Date / Time No Known Allergies Allergy Verified 06/02/17 22:37 Review of Systems - Review of Systems Constitutional: Report: Weakness Eyes: Report: No Significant Respiratory: Report: No Significant Cardiovascular: Report: No Significant Gastrointestinal: Report: Nausea Genitourinary: Denies: Dysuria, Hematuria Neurological: Report: Numbness Physical Exam - Physical Exam HEENT: Report: Ears Nose Throat within normal limits, Pharnyx within normal limits Neck: Report: Within normal limits Cardiovascular Systems: Report: +s1/s2 noted, Regular, Rate and Rhythm Respiratory: Report: Breath Sounds are within normal limits Abdomen: Report: Non-tender to palpation - Lab Results All Lab Results last 24 hours: Laboratory Results - last 24 hr 12/06/17 12/07/17 12/07/17 21:15 04:30 04:30 WBC 3.1 L RBC 3.23 L Hgb 10.1 L Hct 28.8 L D MCV 89.3 MCH 31.3 H MCHC Differential 35.0 RDW 15.0 Plt Count 237 MPV 7.5 Neutrophils % 49.2 Lymphocytes % 41.1 Monocytes % 5.5 Eosinophils % 3.1 Basophils % 1.1 Sodium 134 L Potassium 4.0 Chloride 103 Carbon Dioxide 24.2 Anion Gap 10.8 BUN 8 Creatinine 0.7 Est GFR ( Amer) > 60.0 Est GFR (Non-Af Amer) > 60.0 BUN/Creatinine Ratio 11.4 Glucose 324 H POC Glucose 281 H Calcium 8.9 Total Bilirubin 1.3 H AST 52 H ALT 139 H Alkaline Phosphatase 78 Total Protein 5.3 L Albumin 3.5 L Globulin 1.8 Albumin/Globulin Ratio 1.9 H 12/07/17 12/07/17 12/07/17 06:34 12:01 17:27 WBC RBC Hgb Hct MCV MCH MCHC Differential RDW Plt Count MPV Neutrophils % Lymphocytes % Monocytes % Eosinophils % Basophils % Sodium Potassium Chloride Carbon Dioxide Anion Gap BUN Creatinine Est GFR ( Amer) Est GFR (Non-Af Amer) BUN/Creatinine Ratio Glucose POC Glucose 314 H 260 H 155 H Calcium Total Bilirubin AST ALT Alkaline Phosphatase Total Protein Albumin Globulin Albumin/Globulin Ratio [facility] 12/06/17 17:00 - Preliminary Blood NO GROWTH AFTER 24 HOURS 12/06/17 17:20 - Preliminary Blood NO GROWTH AFTER 24 HOURS - Assessment Assessment: Current Active Problems Problem Status Onset BODY WIDE ACHES WITH FATIGUE Acute Lactic acidosis r/o sepsis nausea with vomiting weakness breast ca HTN DM Dyslipidemia PUD/GERD - Plan Plan: iv fluids to hydrate monitor glucose with accu-check fall precautions continue the rest of the orders
[2017-12-08] MEDS: INSULIN ASPART SLIDING SCALE 100 UNITS/ML UNIT SUBQ SCH ×4 (00:32→17:00)
[2017-12-08] MEDS: Sodium Chloride 0.9% 1,000 ML IV SCH ×2 (00:40→11:30)
[2017-12-08 06:32] LABS: % BASOPHILS 1.3 % (0.0-2.0); % EOSINOPHILS 3.2 % (0.0-5.0); % LYMPHOCYTES 32.5 % (20.0-50.0); % MONOCYTES 6.9 % (2.0-10.0); % NEUTROPHILS 56.1 % (40.0-80.0); EOSINOPHILE ABSOLUTE 0.1 Th/cmm (0.1-0.4); HEMATOCRIT 31.1 % (41.0-60); HEMOGLOBIN 10.7 gm/dL (12-16); LYMPHOCYTE ABSOLUTE 1.2 Th/cmm (1.5-3.0); MEAN CELL VOLUME 88.8 fl (81-100); MEAN CORPUSCULAR HEMOGLOBIN 30.5 pg (27.0-31.0); MEAN CORPUSCULAR HGB CONC 34.4 pg (28.0-36.0); MEAN PLATELET VOLUME 7.5 fl; MONOCYTE ABSOLUTE 0.3 Th/cmm (0.3-1.0); NEUTROPHILE ABSOLUTE 2.2 Th/cmm (1.8-8.0); PLATELET COUNT 287 Th/cmm (150-400); RED CELL DISTRIBUTION WIDTH 15.2 % (11.5-20.0)
[2017-12-08 06:40] LABS: ANION GAP 12.5 (7.0-16.0); BUN - UREA NITROGEN 6 mg/dL (7-25); CALCIUM SERUM 8.8 mg/dL (8.6-10.3); CARBON DIOXIDE 22.4 mEq/L (21.0-31.0); CHLORIDE 106 mEq/L (98-107); CREATININE - SERUM 0.8 mg/dL (0.6-1.2); GFR AFRICAN-AMERICAN > 60.0 ml/min (>90); GFR NON AFRICAN-AMERICAN > 60.0 ml/min; GLUCOSE 192 mg/dL (70-105); POTASSIUM SERUM 3.9 mEq/L (3.5-5.1); SODIUM SERUM 137 mEq/L (136-145); WHITE BLOOD COUNT 3.8 Th/cmm (4.8-10.8)
[2017-12-08] MEDS: Pantoprazole 40 mg EC Tab PO SCH (08:49)
[2017-12-08] MEDS: Sulfamethoxazole/TMP 800/160mg Tab PO SCH ×2 (08:49→16:48)
[2017-12-08] MEDS: Morphine Sulfate 2 mg/mL 1mL Syr IVP PRN ×2 (09:00→23:54)
[2017-12-08] MEDS ORDERED: Vancomycin HCl 1.5 GM in Sodium Chloride 0.9% 500 ML IV SCH (09:00)
--- NOTE | 2017-12-08 09:30 | General Progress Note ---
Subjective - Review of Systems Events since last encounter: patient with c/o generalized weakness pt awake in no acute distress Objective - Results Result Diagrams: 12/08/17 05:40 12/08/17 05:40 Recent Labs: Laboratory Last Values WBC 3.8 Th/cmm (4.8-10.8) L 12/08/17 05:40 RBC 3.50 Mil/cmm (3.80-5.10) L 12/08/17 05:40 Hgb 10.7 gm/dL (12-16) L 12/08/17 05:40 Hct 31.1 % (41.0-60) L 12/08/17 05:40 MCV 88.8 fl (81-100) 12/08/17 05:40 MCH 30.5 pg (27.0-31.0) 12/08/17 05:40 MCHC Differential 34.4 pg (28.0-36.0) 12/08/17 05:40 RDW 15.2 % (11.5-20.0) 12/08/17 05:40 Plt Count 287 Th/cmm (150-400) 12/08/17 05:40 MPV 7.5 fl 12/08/17 05:40 Neutrophils % 56.1 % (40.0-80.0) 12/08/17 05:40 Lymphocytes % 32.5 % (20.0-50.0) 12/08/17 05:40 Monocytes % 6.9 % (2.0-10.0) 12/08/17 05:40 Eosinophils % 3.2 % (0.0-5.0) 12/08/17 05:40 Basophils % 1.3 % (0.0-2.0) 12/08/17 05:40 PT 10.2 SECONDS (9.5-11.5) 12/06/17 17:20 INR 0.98 (0.5-1.4) 12/06/17 17:20 PTT (Actin FS) 22.1 SECONDS (26.0-38.0) L 12/06/17 17:20 Sodium 137 mEq/L (136-145) 12/08/17 05:40 Potassium 3.9 mEq/L (3.5-5.1) 12/08/17 05:40 Chloride 106 mEq/L (98-107) 12/08/17 05:40 Carbon Dioxide 22.4 mEq/L (21.0-31.0) 12/08/17 05:40 Anion Gap 12.5 (7.0-16.0) 12/08/17 05:40 BUN 6 mg/dL (7-25) L 12/08/17 05:40 Creatinine 0.8 mg/dL (0.6-1.2) 12/08/17 05:40 Est GFR ( Amer) > 60.0 ml/min (>90) 12/08/17 05:40 Est GFR (Non-Af Amer) > 60.0 ml/min 12/08/17 05:40 BUN/Creatinine Ratio 7.5 12/08/17 05:40 Glucose 192 mg/dL (70-105) H 12/08/17 05:40 POC Glucose 173 MG/DL (70 - 105) H 12/08/17 05:33 Hemoglobin A1c % 8.8 % (4.0-6.0) H 12/06/17 17:20 Whole Bld Lactic Acid 2.76 mmol/L (0.60-1.99) H* 12/06/17 19:45 Calcium 8.8 mg/dL (8.6-10.3) 12/08/17 05:40 Total Bilirubin 1.3 mg/dL (0.3-1.0) H 12/07/17 04:30 AST 52 U/L (13-39) H 12/07/17 04:30 ALT 139 U/L (7-52) H 12/07/17 04:30 Alkaline Phosphatase 78 U/L (34-104) 12/07/17 04:30 Troponin I 0.03 ng/mL (0.01-0.05) 12/06/17 17:20 Total Protein 5.3 gm/dL (6.0-8.3) L 12/07/17 04:30 Albumin 3.5 gm/dL (3.7-5.3) L 12/07/17 04:30 Globulin 1.8 gm/dL 12/07/17 04:30 Albumin/Globulin Ratio 1.9 (1.0-1.8) H 12/07/17 04:30 TSH 0.70 uIU/ml (0.34-5.60) 12/06/17 17:20 Urine Source CLEAN C 12/06/17 16:13 Urine Color YELLOW 12/06/17 16:13 Urine Clarity HAZY (CLEAR) 12/06/17 16:13 Urine pH 6.0 (4.6 - 8.0) 12/06/17 16:13 Ur Specific [place] 1.015 (1.005-1.030) 12/06/17 16:13 Urine Protein TRACE mg/dL (NEGATIVE) 12/06/17 16:13 Urine Glucose (UA) 100 mg/dL (NEGATIVE) H 12/06/17 16:13 Urine Ketones NEGATIVE mg/dL (NEGATIVE) 12/06/17 16:13 Urine Blood TRACE (NEGATIVE) 12/06/17 16:13 Urine Nitrate NEGATIVE (NEGATIVE) 12/06/17 16:13 Urine Bilirubin NEGATIVE (NEGATIVE) 12/06/17 16:13 Urine Urobilinogen 1.0 E.U./dL (0.2 - 1.0) 12/06/17 16:13 Ur Leukocyte Esterase NEGATIVE (NEGATIVE) 12/06/17 16:13 Urine RBC 2-5 /hpf (0-5) 12/06/17 16:13 Urine WBC 0-2 /hpf (0-5) 12/06/17 16:13 Ur Epithelial Cells MODERATE /lpf (FEW) 12/06/17 16:13 Urine Bacteria NONE SEEN /hpf (NONE SEEN) 12/06/17 16:13 - Physical Exam Vitals and I&O: Vital Signs Temp 96.5 F 12/08/17 07:43 Pulse 80 12/08/17 08:49 Resp 18 12/08/17 07:43 BP 125/70 12/08/17 08:49 Pulse Ox 100 12/08/17 07:43 Intake & Output 12/07/17 12/08/17 12/08/17 18:59 06:59 18:59 Intake Total 1250 1050 Balance 1250 1050 Weight (lbs) 94.801 kg 94.801 kg Intake: Intake, IV Amount 1150 1050 Piperacillin Sodium/ 150 50 Tazobact 3.375 gm In Sodium Chloride 0.9% 50 ml @ 100 mls/hr IV Q6HR [facility] Rx#:[id number] Sodium Chloride 0.9% 1, 1000 1000 000 ml @ 100 mls/hr IV . Q10H ANGY Rx#:[id number] Oral 100 Other: # Voids 1 2 # Bowel Movements 0 1 Stool Characteristics Soft Soft Weight Source Bedscale Bedscale Active Medications: Current Medications Acetaminophen (Tylenol) 650 mg PO Q6H PRN PRN Reason: Mild Pain or Fever >101 Stop: 02/05/18 05:08 Bupropion HCl (Wellbutrin Xl) 300 mg PO DAILY [facility] Stop: 02/05/18 08:59 Last Admin: 12/07/17 11:57 Dose: 300 mg Docusate Sodium (Colace) 100 mg PO DAILY [facility] Stop: 02/05/18 08:59 Last Admin: 12/08/17 08:49 Dose: 100 mg Gabapentin (Neurontin) 300 mg PO TID [facility] Stop: 02/05/18 08:59 Last Admin: 12/08/17 08:49 Dose: 300 mg Sodium Chloride (Nacl 0.9%) 1,000 mls @ 100 mls/hr IV .Q10H [facility] Stop: 02/04/18 21:59 Last Admin: 12/08/17 00:40 Dose: 100 mls/hr Piperacillin Sod/Tazobactam (Sod 3.375 gm/ Sodium Chloride) 50 mls @ 100 mls/ hr IV Q6HR [facility] Stop: 02/05/18 00:00 Last Admin: 12/08/17 05:28 Dose: 100 mls/hr Vancomycin HCl 1.25 gm/ Sodium (Chloride) 250 mls @ 165 mls/hr IV Q12H [facility] Stop: 02/06/18 08:59 Last Admin: 12/08/17 08:52 Dose: 165 mls/hr Insulin Aspart (Novolog Insulin Sliding Scale) 0 units SUBQ Q6HR [facility]; Protocol Stop: 02/04/18 21:59 Last Admin: 12/08/17 05:37 Dose: 2 units Metformin HCl (Glucophage) 500 mg PO DAILY [facility] Stop: 02/05/18 08:59 Last Admin: 12/08/17 08:48 Dose: 500 mg Metoprolol Tartrate (Lopressor) 25 mg PO DAILY [facility] Stop: 02/05/18 08:59 Last Admin: 12/08/17 08:49 Dose: 25 mg Miscellaneous (Vancomycin Iv Per Pharmacy) 1 ea MC DAILY [facility] Stop: 02/05/18 17:24 Morphine Sulfate (Morphine) 1 mg IVP Q4H PRN PRN Reason: Pain (Moderate) Stop: 02/04/18 22:30 Last Admin: 12/08/17 09:00 Dose: 1 mg Ondansetron HCl (Zofran) 4 mg IV Q6H PRN PRN Reason: Nausea / Vomiting Stop: 02/05/18 10:48 Pantoprazole Sodium (Protonix) 40 mg PO DAILY [facility] Stop: 02/05/18 08:59 Last Admin: 12/08/17 08:49 Dose: 40 mg Simvastatin (Zocor) 40 mg PO DAILY [facility]; Protocol Stop: 02/05/18 08:59 Last Admin: 12/08/17 08:49 Dose: 40 mg Tramadol HCl (Ultram) 50 mg PO Q6HR PRN PRN Reason: Moderate pain Stop: 02/05/18 08:32 Trimethoprim/Sulfamethoxazole (Bactrim Ds) 1 tab PO BID [facility] Stop: 12/12/17 10:29 Last Admin: 12/08/17 08:49 Dose: 1 tab Assessment/Plan - Problem List Patient Problems: All Active Problems BODY WIDE ACHES WITH FATIGUE (Acute) - Assessment Assessment: Current Active Problems Problem Status Onset BODY WIDE ACHES WITH FATIGUE Acute Lactic acidosis r/o sepsis nausea with vomiting weakness breast ca HTN DM Dyslipidemia PUD/GERD - Plan Plan: iv fluids to hydrate monitor glucose with accu-check fall precautions continue the rest of the orders Nutritional Asmnt/Malnutr-PDOC - Dietary Evaluation Malnutrition Findings (Please click <Entered> for more info): Nutritional Asmnt/Malnutrition Start: 12/07/17 16: 58 Text: Status: Complete Freq: Protocol: Document 12/07/17 16:58 LCHENG (Rec: 12/07/17 17:15 [email or web address] [id number]) Nutritional Asmnt/Malnutrition Patient General Information Nutritional Screening High Risk Diagnosis sepsis Pertinent Medical Hx/Surgical Hx HTN, DM, hydlipidemia, PUD/ GERD, C section, hysterectomy, breast CA Subjective Information Pt seen lying in bed at time of visit, awake and alert. Pt reported good appetite, consumed 100% of breakfast this morning and felt hungry now. Current Diet Order/ Nutrition Support low sodiuam, ADA diet Pertinent Medications colace, glucophage, novolog, protonix, piperacillin, nacl . 9%, vancomycin Pertinent Labs 12/07 Na 134, glucose 324, POC 260-314 7/ A1c 8.8 Nutritional Hx/Data Height 1.55 m Height (Calculated Centimeters) 154.9 Current Weight (lbs) 94.801 kg Weight (Calculated Kilograms) 94.8 Weight (Calculated Grams) 82637.8 [place] Body Weight 105 Body Mass Index (BMI) 39.4 Weight Status Obese GI Symptoms GI Symptoms None Last BM not indicated Difficult in: None Skin Integrity/Comment: right partial mastectomy scar ,no open wounds noted, Estimated Nutritional Goals BEE in Kcals: Adj wt of IBW Calories/Kcals/Kg 25-30 Kcals Calculated [id number] Protein: Adj wt of IBW Protein g/k-1.2 Protein Calculated 60-72 Fluid: ml 1500-1800ml (1ml/kcal) Nutritional Problem 1. Problem Problem altered nutrition related labs Etiology hx of DM Signs/Symptoms: glucose 324, POC 260-314, A1c 8.8 Malnutrition Alert Is there a minimum of two criteria No selected? Query Text:Check all the applicable criteria. A minimum of two criteria are recommended for diagnosis of either severe or non-severe malnutrition. Malnutrition Related to Morbid Obesity Malnutrition related to morbid obesity No Intervention/Recommendation Comments 1. Continue with low sodium, ADA diet as ordered. MD to adjust insulin for optimal glycemic control 2. Monitor PO intake, wt, labs and skin integrity 3. F/U as moderate risk in 3-5 days, 12/10-12/12, PO check 12/09 Expected Outcomes/Goals Expected Outcomes/Goals 1. PO intake to meet at least 75% of nutritional needs. 2. Wt stability, skin to remain intact, labs to approach WNL.
--- NOTE | 2017-12-08 10:57 | Consultation ---
DATE OF CONSULTATION: 12/08/2017 PSYCHIATRIC CONSULT PATIENT'S AGE: 52. SEX: Female. PHYSICIAN: Dr. Jordan. EMERGENCY COMMUNICATIONS DISPATCHER: Dr. Julian. REASON FOR THE CONSULT: Depression. HISTORY OF PRESENT ILLNESS: The patient is a 52-year-old female with a history of depression. The patient diagnosed with cancer of the breast and currently going through radiation. The patient has been feeling depressed and sad because of her cancer. She has been taking Wellbutrin and she was followed up at [facility] and recently she followed with a psychiatrist in [place]. The patient currently denies any thoughts of suicide or homicide and she is compliant and cooperative with her treatment. She denies any side effects of medications. PAST PSYCHIATRIC HISTORY: The patient has been in treatment for depression. MEDICAL DIAGNOSIS: Breast cancer. SOCIAL HISTORY: The patient lives with her sister and her 14-year-old daughter and 26-year-old daughter. She has total 3 children. She denies any alcohol or any street drug use. MENTAL STATUS EXAM: The patient appears her stated age. Calm. Cooperative. Thought processes are mainly goal directed. The patient denies any auditory or visual hallucinations or delusions. She denies any suicidal or homicidal ideations. The patient is alert and oriented to time, place, person, and situation. Intact immediate, recent and remote memories. Fair insight. Fair judgment. ASSESSMENT: PRIMARY DIAGNOSIS: Major depression, moderate, recurrent, without psychotic features. TREATMENT PLAN: We will continue Wellbutrin same dose. The patient to continue her treatment as an outpatient after her discharge. Thanks to Dr. Jordan and we will follow with you. [facility]# [id number]
[2017-12-08] MEDS: buPROPion XL 150 mg T 24 H PO SCH (11:27)
--- NOTE | 2017-12-08 19:05 | Consultation ---
DATE OF CONSULTATION: 12/08/2017 REFERRING PHYSICIAN: Dr. Jordan. REASON FOR CONSULTATION: Breast cancer. HISTORY OF PRESENT ILLNESS: The patient is a 52-year-old female who was diagnosed with right breast cancer in 03/2017 underwent surgery, right mastectomy in May 2017. The patient was delayed for some reason to start adjuvant chemotherapy and she informs me that she is now on weekly treatment for 12 weeks and I presumed it is Taxol weekly. The patient is feeling generally weak and she was found to have elevated lactic acid and normal functions before she was started on IV antibiotics for possible sepsis and I was asked to evaluated that. The patient also presented with vomiting and nausea on admission. PAST MEDICAL HISTORY: Hypertension, diabetes, dyslipidemia, gastritis, peptic ulcer disease. MEDICATIONS: Reviewed. FAMILY HISTORY: Not contributory. SURGICAL HISTORY: Right mastectomy. PHYSICAL EXAMINATION: GENERAL: The patient is obese. VITAL SIGNS: Stable. HEENT: Alopecia. NECK: No lymphadenopathy. CHEST: Right mastectomy, left breast no masses. ABDOMEN: Soft. There is a left chest MediPort. EXTREMITIES: Unremarkable. LABORATORY DATA: Bilirubin 1.3, AST 52, ALT 139, creatinine 0.8. CA-125 normal. PT, PTT are normal. White count 3.8, hemoglobin 10.7, platelets 287. Chest x-ray from admission left side Port-A-Cath, no acute infiltrate. ASSESSMENT: 1. Generalized weakness associated with abnormal liver functions raising suspicion of possible biliary infection. Agree with the antibiotics. I will obtain ultrasound of the gallbladder and HIDA scan to rule out possible cholecystitis. 2. Breast cancer status post right mastectomy, currently on adjuvant chemotherapy. Another possibility is hepatic dysfunction from the chemotherapy drugs. Continue current management with Zofran p.r.n., vancomycin, Protonix, and Zosyn and follow the tumor marker CA 27-29, procalcitonin and liver functions. Thank you Dr. Jordan for the opportunity to participate in the care of this interesting case with you. JOB# [id number]
[2017-12-09] MEDS: INSULIN ASPART SLIDING SCALE 100 UNITS/ML UNIT SUBQ SCH ×4 (00:02→17:00)
[2017-12-09] MEDS: Sodium Chloride 0.9% 1,000 ML IV SCH ×2 (01:09→11:58)
[2017-12-09] MEDS: Morphine Sulfate 2 mg/mL 1mL Syr IVP PRN ×2 (06:03→20:14)
[2017-12-09 06:15] LABS: % BASOPHILS 1.4 % (0.0-2.0); % EOSINOPHILS 2.5 % (0.0-5.0); % LYMPHOCYTES 31.8 % (20.0-50.0); % MONOCYTES 8.5 % (2.0-10.0); % NEUTROPHILS 55.8 % (40.0-80.0); EOSINOPHILE ABSOLUTE 0.1 Th/cmm (0.1-0.4); HEMATOCRIT 28.7 % (41.0-60); MEAN CELL VOLUME 89.1 fl (81-100); MEAN CORPUSCULAR HEMOGLOBIN 30.9 pg (27.0-31.0); MEAN CORPUSCULAR HGB CONC 34.7 pg (28.0-36.0); MEAN PLATELET VOLUME 7.3 fl; MONOCYTE ABSOLUTE 0.3 Th/cmm (0.3-1.0); NEUTROPHILE ABSOLUTE 1.8 Th/cmm (1.8-8.0); PLATELET COUNT 245 Th/cmm (150-400); RED BLOOD COUNT 3.22 Mil/cmm (3.80-5.10)
[2017-12-09 06:18] LABS: WHITE BLOOD COUNT 3.2 Th/cmm (4.8-10.8)
[2017-12-09 06:45] LABS: ALB/GLOB RATIO 1.9 (1.0-1.8); ALBUMIN 3.4 gm/dL (3.7-5.3); ALKALINE PHOSPHATASE 66 U/L (34-104); ANION GAP 10.8 (7.0-16.0); BUN - UREA NITROGEN 7 mg/dL (7-25); CALCIUM SERUM 8.4 mg/dL (8.6-10.3); CARBON DIOXIDE 22.9 mEq/L (21.0-31.0); CHLORIDE 107 mEq/L (98-107); CREATININE - SERUM 0.8 mg/dL (0.6-1.2); GFR AFRICAN-AMERICAN > 60.0 ml/min (>90); GFR NON AFRICAN-AMERICAN > 60.0 ml/min; GLUCOSE 174 mg/dL (70-105); POTASSIUM SERUM 3.7 mEq/L (3.5-5.1); SGOT 40 U/L (13-39); SGPT/ALT 103 U/L (7-52); SODIUM SERUM 137 mEq/L (136-145); TOTAL PROTEIN,SERUM 5.2 gm/dL (6.0-8.3)
[2017-12-09] MEDS: Sulfamethoxazole/TMP 800/160mg Tab PO SCH ×2 (09:38→18:44)
[2017-12-09] MEDS: Pantoprazole 40 mg EC Tab PO SCH (09:40)
[2017-12-09] MEDS: buPROPion XL 150 mg T 24 H PO SCH (09:42)
--- NOTE | 2017-12-09 10:37 | Progress Notes ---
DATE: 12/09/2017 SUBJECTIVE: Chart reviewed and the patient interviewed. Also discussed the patient's condition with the staff and reviewed records and labs. The patient is still in a depressed mood, but her affect is brighter. The patient is less agitated and less irritable. She is interacting more with peers and with others. The patient denies any side effects of medications. ASSESSMENT: The patient is still depressed but not suicidal and compliant with taking Wellbutrin. TREATMENT PLAN: Continue monitoring her behavior and continue supportive therapy for the patient and continue to follow up. [facility]# [id number]
--- NOTE | 2017-12-09 11:04 | Diagnostic Imaging Report ---
Ultrasound abdomen HISTORY: Abdominal pain COMPARISON: CT abdomen and pelvis on 10/18/2016 Technique: Sonography of the abdomen was performed in multiple planes. FINDINGS: Exam is limited due to body habitus and bowel gas. The liver enhances increased echogenicity and measures 19.3 cm. The liver margin is not well-defined, however, no obvious focal lesions. Small echogenic focus is seen in the gallbladder measuring 1.1 cm. No gallbladder wall thickening or pericholecystic fluid. The common bile duct was not well visualized. Evaluation of the pancreas is limited due to bowel gas. The right kidney measures 11.2 x 4.8 cm. The Left kidney measures 11.3 x 5.4 cm. The renal margins are not well-defined, however, no focal lesions or hydronephrosis. The spleen measures 11.8 cm. IMPRESSION: Limited exam due to bowel gas and body habitus. Findings suggestive of a solitary stone within the gallbladder measuring 1.1 cm. No evidence of gallbladder wall thickening or pericholecystic fluid. The common bile duct was not well-visualized. Mild hepatomegaly with increased echogenicity which may be due to fatty infiltration.
--- NOTE | 2017-12-09 16:45 | General Progress Note ---
Subjective - Review of Systems Subjective: pt. feeling weak Objective - Results Result Diagrams: 12/09/17 05:45 12/09/17 05:45 Recent Labs: Laboratory Last Values WBC 3.2 Th/cmm (4.8-10.8) L 12/09/17 05:45 RBC 3.22 Mil/cmm (3.80-5.10) L 12/09/17 05:45 Hgb 10.0 gm/dL (12-16) L 12/09/17 05:45 Hct 28.7 % (41.0-60) L 12/09/17 05:45 MCV 89.1 fl (81-100) 12/09/17 05:45 MCH 30.9 pg (27.0-31.0) 12/09/17 05:45 MCHC Differential 34.7 pg (28.0-36.0) 12/09/17 05:45 RDW 15.0 % (11.5-20.0) 12/09/17 05:45 Plt Count 245 Th/cmm (150-400) 12/09/17 05:45 MPV 7.3 fl 12/09/17 05:45 Neutrophils % 55.8 % (40.0-80.0) 12/09/17 05:45 Lymphocytes % 31.8 % (20.0-50.0) 12/09/17 05:45 Monocytes % 8.5 % (2.0-10.0) 12/09/17 05:45 Eosinophils % 2.5 % (0.0-5.0) 12/09/17 05:45 Basophils % 1.4 % (0.0-2.0) 12/09/17 05:45 PT 10.2 SECONDS (9.5-11.5) 12/06/17 17:20 INR 0.98 (0.5-1.4) 12/06/17 17:20 PTT (Actin FS) 22.1 SECONDS (26.0-38.0) L 12/06/17 17:20 Sodium 137 mEq/L (136-145) 12/09/17 05:45 Potassium 3.7 mEq/L (3.5-5.1) 12/09/17 05:45 Chloride 107 mEq/L (98-107) 12/09/17 05:45 Carbon Dioxide 22.9 mEq/L (21.0-31.0) 12/09/17 05:45 Anion Gap 10.8 (7.0-16.0) 12/09/17 05:45 BUN 7 mg/dL (7-25) 12/09/17 05:45 Creatinine 0.8 mg/dL (0.6-1.2) 12/09/17 05:45 Est GFR ( Amer) > 60.0 ml/min (>90) 12/09/17 05:45 Est GFR (Non-Af Amer) > 60.0 ml/min 12/09/17 05:45 BUN/Creatinine Ratio 8.8 12/09/17 05:45 Glucose 174 mg/dL (70-105) H 12/09/17 05:45 POC Glucose 318 MG/DL (70 - 105) H 12/09/17 11:56 Hemoglobin A1c % 8.8 % (4.0-6.0) H 12/06/17 17:20 Whole Bld Lactic Acid 2.76 mmol/L (0.60-1.99) H* 12/06/17 19:45 Calcium 8.4 mg/dL (8.6-10.3) L 12/09/17 05:45 Total Bilirubin 1.0 mg/dL (0.3-1.0) 12/09/17 05:45 AST 40 U/L (13-39) H 12/09/17 05:45 ALT 103 U/L (7-52) H 12/09/17 05:45 Alkaline Phosphatase 66 U/L (34-104) 12/09/17 05:45 Troponin I 0.03 ng/mL (0.01-0.05) 12/06/17 17:20 Total Protein 5.2 gm/dL (6.0-8.3) L 12/09/17 05:45 Albumin 3.4 gm/dL (3.7-5.3) L 12/09/17 05:45 Globulin 1.8 gm/dL 12/09/17 05:45 Albumin/Globulin Ratio 1.9 (1.0-1.8) H 12/09/17 05:45 TSH 0.70 uIU/ml (0.34-5.60) 12/06/17 17:20 Urine Source CLEAN C 12/06/17 16:13 Urine Color YELLOW 12/06/17 16:13 Urine Clarity HAZY (CLEAR) 12/06/17 16:13 Urine pH 6.0 (4.6 - 8.0) 12/06/17 16:13 Ur Specific [place] 1.015 (1.005-1.030) 12/06/17 16:13 Urine Protein TRACE mg/dL (NEGATIVE) 12/06/17 16:13 Urine Glucose (UA) 100 mg/dL (NEGATIVE) H 12/06/17 16:13 Urine Ketones NEGATIVE mg/dL (NEGATIVE) 12/06/17 16:13 Urine Blood TRACE (NEGATIVE) 12/06/17 16:13 Urine Nitrate NEGATIVE (NEGATIVE) 12/06/17 16:13 Urine Bilirubin NEGATIVE (NEGATIVE) 12/06/17 16:13 Urine Urobilinogen 1.0 E.U./dL (0.2 - 1.0) 12/06/17 16:13 Ur Leukocyte Esterase NEGATIVE (NEGATIVE) 12/06/17 16:13 Urine RBC 2-5 /hpf (0-5) 12/06/17 16:13 Urine WBC 0-2 /hpf (0-5) 12/06/17 16:13 Ur Epithelial Cells MODERATE /lpf (FEW) 12/06/17 16:13 Urine Bacteria NONE SEEN /hpf (NONE SEEN) 12/06/17 16:13 - Physical Exam Vitals and I&O: Vital Signs Temp 96.7 F 12/09/17 16:00 Pulse 78 12/09/17 16:00 Resp 18 12/09/17 16:00 BP 135/84 12/09/17 16:00 Pulse Ox 98 12/09/17 16:00 Intake & Output 12/08/17 12/09/17 12/09/17 18:59 06:59 18:59 Intake Total 1300 2380 1530 Balance 1300 2380 1530 Weight (lbs) 94.801 kg 94.801 kg Intake: Intake, IV Amount 1300 1300 1050 Piperacillin Sodium/ 50 150 50 Tazobact 3.375 gm In Sodium Chloride 0.9% 50 ml @ 100 mls/hr IV Q6HR [facility] Rx#:[id number] Sodium Chloride 0.9% 1, 4378 522 4621 000 ml @ 100 mls/hr IV . Q10H [facility] Rx#:[id number] Vancomycin HCl 1.25 gm In 250 250 Sodium Chloride 0.9% 250 ml @ 165 mls/hr IV Q12H [facility] Rx#:[id number] Oral 1080 480 Other: # Voids 3 # Bowel Movements 1 Stool Characteristics Soft Soft Soft Weight Source Bedscale Bedscale Active Medications: Current Medications Acetaminophen (Tylenol) 650 mg PO Q6H PRN PRN Reason: Mild Pain or Fever >101 Stop: 02/05/18 05:08 Bupropion HCl (Wellbutrin Xl) 300 mg PO DAILY [facility] Stop: 02/05/18 08:59 Last Admin: 12/09/17 09:42 Dose: 300 mg Docusate Sodium (Colace) 100 mg PO DAILY [facility] Stop: 02/05/18 08:59 Last Admin: 12/09/17 09:40 Dose: 100 mg Gabapentin (Neurontin) 300 mg PO TID [facility] Stop: 02/05/18 08:59 Last Admin: 12/09/17 14:13 Dose: Not Given Sodium Chloride (Nacl 0.9%) 1,000 mls @ 100 mls/hr IV .Q10H [facility] Stop: 02/04/18 21:59 Last Admin: 12/09/17 11:58 Dose: 100 mls/hr Piperacillin Sod/Tazobactam (Sod 3.375 gm/ Sodium Chloride) 50 mls @ 100 mls/ hr IV Q6HR [facility] Stop: 02/05/18 00:00 Last Infusion: 12/09/17 12:30 Dose: Infused Insulin Aspart (Novolog Insulin Sliding Scale) 0 units SUBQ Q6HR [facility]; Protocol Stop: 02/04/18 21:59 Last Admin: 12/09/17 12:20 Dose: 8 units Metformin HCl (Glucophage) 500 mg PO DAILY [facility] Stop: 02/05/18 08:59 Last Admin: 12/09/17 09:40 Dose: Not Given Metoprolol Tartrate (Lopressor) 25 mg PO DAILY [facility] Stop: 02/05/18 08:59 Last Admin: 12/09/17 09:38 Dose: 25 mg Morphine Sulfate (Morphine) 1 mg IVP Q4H PRN PRN Reason: Pain (Moderate) Stop: 02/04/18 22:30 Last Admin: 12/09/17 06:03 Dose: 1 mg Ondansetron HCl (Zofran) 4 mg IV Q6H PRN PRN Reason: Nausea / Vomiting Stop: 02/05/18 10:48 Pantoprazole Sodium (Protonix) 40 mg PO DAILY [facility] Stop: 02/05/18 08:59 Last Admin: 12/09/17 09:40 Dose: 40 mg Simvastatin (Zocor) 40 mg PO DAILY [facility]; Protocol Stop: 02/05/18 08:59 Last Admin: 12/09/17 09:40 Dose: 40 mg Tramadol HCl (Ultram) 50 mg PO Q6HR PRN PRN Reason: Moderate pain Stop: 02/05/18 08:32 Last Admin: 12/08/17 20:29 Dose: 50 mg Trimethoprim/Sulfamethoxazole (Bactrim Ds) 1 tab PO BID [facility] Stop: 12/12/17 10:29 Last Admin: 12/09/17 09:38 Dose: 1 tab General: Alert, Oriented x3 HEENT: PERRLA, EOMI Neck: Supple Cardiovascular: Normal S1, Normal S2 Lungs: Clear to auscultation Abdomen: Bowel sounds Other physical findings: right mastectomy Assessment/Plan - Problem List Patient Problems: All Active Problems BODY WIDE ACHES WITH FATIGUE (Acute) - Assessment Assessment: Current Active Problems Problem Status Onset BODY WIDE ACHES WITH FATIGUE Acute Lactic acidosis r/o sepsis nausea with vomiting weakness breast ca s/p right mastectomy HTN DM Dyslipidemia PUD/GERD - Plan Plan: iv fluids to hydrate monitor glucose with accu-check fall precautions continue the rest of the orders Nutritional Asmnt/Malnutr-PDOC - Dietary Evaluation Malnutrition Findings (Please click <Entered> for more info): Nutritional Asmnt/Malnutrition Start: 12/07/17 16: 58 Text: Status: Complete Freq: Protocol: Document 12/07/17 16:58 LCHENG (Rec: 12/07/17 17:15 LCHENG [id number]) Nutritional Asmnt/Malnutrition Patient General Information Nutritional Screening High Risk Diagnosis sepsis Pertinent Medical Hx/Surgical Hx HTN, DM, hydlipidemia, PUD/ GERD, C section, hysterectomy, breast CA Subjective Information Pt seen lying in bed at time of visit, awake and alert. Pt reported good appetite, consumed 100% of breakfast this morning and felt hungry now. Current Diet Order/ Nutrition Support low sodiuam, ADA diet Pertinent Medications colace, glucophage, novolog, protonix, piperacillin, nacl . 9%, vancomycin Pertinent Labs 12/07 Na 134, glucose 324, POC 260-314 7/2 A1c 8.8 Nutritional Hx/Data Height 1.55 m Height (Calculated Centimeters) 154.9 Current Weight (lbs) 94.801 kg Weight (Calculated Kilograms) 94.8 Weight (Calculated Grams) 03796.8 [place] Body Weight 105 Body Mass Index (BMI) 39.4 Weight Status Obese GI Symptoms GI Symptoms None Last BM not indicated Difficult in: None Skin Integrity/Comment: right partial mastectomy scar ,no open wounds noted, Estimated Nutritional Goals BEE in Kcals: Adj wt of IBW Calories/Kcals/Kg 25-30 Kcals Calculated 8989-4154 Protein: Adj wt of IBW Protein g/k-1.2 Protein Calculated 60-72 Fluid: ml 1500-1800ml (1ml/kcal) Nutritional Problem 1. Problem Problem altered nutrition related labs Etiology hx of DM Signs/Symptoms: glucose 324, POC 260-314, A1c 8.8 Malnutrition Alert Is there a minimum of two criteria No selected? Query Text:Check all the applicable criteria. A minimum of two criteria are recommended for diagnosis of either severe or non-severe malnutrition. Malnutrition Related to Morbid Obesity Malnutrition related to morbid obesity No Intervention/Recommendation Comments 1. Continue with low sodium, ADA diet as ordered. MD to adjust insulin for optimal glycemic control 2. Monitor PO intake, wt, labs and skin integrity 3. F/U as moderate risk in 3-5 days, 12/10-12/12, PO check 12/09 Expected Outcomes/Goals Expected Outcomes/Goals 1. PO intake to meet at least 75% of nutritional needs. 2. Wt stability, skin to remain intact, labs to approach WNL.
--- NOTE | 2017-12-10 00:26 | Consultation ---
DATE OF CONSULTATION: 12/08/2017 INFECTIOUS DISEASE CONSULTATION HISTORY OF PRESENT ILLNESS: This is a 53-year-old female who was brought to the Emergency Room with complaint of generalized weakness. Infectious consultation was called for further treatment. PAST MEDICAL HISTORY: Diabetes, hypertension, hyperlipidemia, breast cancer. FAMILY HISTORY: Negative. PAST SURGICAL HISTORY: Mastectomy. SOCIAL HISTORY: Nonsmoker. REVIEW OF SYSTEMS: A 14-point review of systems is negative except for above. PHYSICAL EXAMINATION: GENERAL: She is alert, awake, well-nourished female with the following vital signs VITAL SIGNS: Temperature 98.2, pulse 74, respirations 18, blood pressure 135/77. HEENT: Mild pallor, no icterus or plaque. NECK: Supple. LUNGS: Breath sounds bilateral. CARDIOVASCULAR: S1. ABDOMEN: Soft, bowel sounds. LYMPHATIC: No cervical lymph nodes. LABORATORY DATA: White count 3000, hemoglobin is 10 g, platelets 245. Alkaline phosphatase 66, AST, ALT high. Urine shows 100 glucose, rbc's 2-5, WBC 0-2. Chest x-ray, no infiltrate. DIAGNOSIS: Urinary tract infection. The patient started on Zosyn. Pancytopenia probably drug related. Increased LFT, HIDA scan was ordered. Pain control with gabapentin, diabetes insulin, hypertension stable on current medication. Thank you Dr. Jordan for this consultation. JOB# [id number]
[2017-12-10] MEDS: INSULIN ASPART SLIDING SCALE 100 UNITS/ML UNIT SUBQ SCH ×5 (00:34→18:01)
[2017-12-10] MEDS: Morphine Sulfate 2 mg/mL 1mL Syr IVP PRN (06:34)
--- NOTE | 2017-12-10 08:38 | Diagnostic Imaging Report ---
Radionuclide biliary scan (HIDA scan) HISTORY: Pain 5.1 mCi technetium labeled biliary agent used in the exam. There is normal hepatic uptake and clearance. There is normal excretion of nuclide into the gallbladder, common bile duct, and small bowel. IMPRESSION: Normal examination
[2017-12-10] MEDS: Sulfamethoxazole/TMP 800/160mg Tab PO SCH ×2 (08:43→17:32)
[2017-12-10] MEDS: Pantoprazole 40 mg EC Tab PO SCH (08:44)
[2017-12-10] MEDS: buPROPion XL 150 mg T 24 H PO SCH (08:51)
--- NOTE | 2017-12-10 16:17 | Progress Notes ---
DATE: 12/10/2017 SUBJECTIVE: Chart reviewed and the patient interviewed. Also, discussed the patient's condition with the staff and reviewed records and labs. The patient's affect is brighter. The patient is still depressed, but she is interacting appropriately. She denies any intention to harm herself or others. She also is continued to work on her ineffective coping and she continued to followup with instructions and directions. ASSESSMENT: The patient is still depressed, but cooperative with her treatment. TREATMENT PLAN: Continue to monitor her behavior and her condition closely. Also, continue Wellbutrin same dose and followup. [facility]# [id number]
--- NOTE | 2017-12-10 17:33 | General Progress Note ---
Subjective - Review of Systems Service Date: 12/09/17 Objective - Results Result Diagrams: 12/09/17 05:45 12/09/17 05:45 Recent Labs: Laboratory Last Values WBC 3.2 Th/cmm (4.8-10.8) L 12/09/17 05:45 RBC 3.22 Mil/cmm (3.80-5.10) L 12/09/17 05:45 Hgb 10.0 gm/dL (12-16) L 12/09/17 05:45 Hct 28.7 % (41.0-60) L 12/09/17 05:45 MCV 89.1 fl (81-100) 12/09/17 05:45 MCH 30.9 pg (27.0-31.0) 12/09/17 05:45 MCHC Differential 34.7 pg (28.0-36.0) 12/09/17 05:45 RDW 15.0 % (11.5-20.0) 12/09/17 05:45 Plt Count 245 Th/cmm (150-400) 12/09/17 05:45 MPV 7.3 fl 12/09/17 05:45 Neutrophils % 55.8 % (40.0-80.0) 12/09/17 05:45 Lymphocytes % 31.8 % (20.0-50.0) 12/09/17 05:45 Monocytes % 8.5 % (2.0-10.0) 12/09/17 05:45 Eosinophils % 2.5 % (0.0-5.0) 12/09/17 05:45 Basophils % 1.4 % (0.0-2.0) 12/09/17 05:45 PT 10.2 SECONDS (9.5-11.5) 12/06/17 17:20 INR 0.98 (0.5-1.4) 12/06/17 17:20 PTT (Actin FS) 22.1 SECONDS (26.0-38.0) L 12/06/17 17:20 Sodium 137 mEq/L (136-145) 12/09/17 05:45 Potassium 3.7 mEq/L (3.5-5.1) 12/09/17 05:45 Chloride 107 mEq/L (98-107) 12/09/17 05:45 Carbon Dioxide 22.9 mEq/L (21.0-31.0) 12/09/17 05:45 Anion Gap 10.8 (7.0-16.0) 12/09/17 05:45 BUN 7 mg/dL (7-25) 12/09/17 05:45 Creatinine 0.8 mg/dL (0.6-1.2) 12/09/17 05:45 Est GFR ( Amer) > 60.0 ml/min (>90) 12/09/17 05:45 Est GFR (Non-Af Amer) > 60.0 ml/min 12/09/17 05:45 BUN/Creatinine Ratio 8.8 12/09/17 05:45 Glucose 174 mg/dL (70-105) H 12/09/17 05:45 POC Glucose 191 MG/DL (70 - 105) H 12/10/17 16:41 Hemoglobin A1c % 8.8 % (4.0-6.0) H 12/06/17 17:20 Whole Bld Lactic Acid 2.76 mmol/L (0.60-1.99) H* 12/06/17 19:45 Calcium 8.4 mg/dL (8.6-10.3) L 12/09/17 05:45 Total Bilirubin 1.0 mg/dL (0.3-1.0) 12/09/17 05:45 AST 40 U/L (13-39) H 12/09/17 05:45 ALT 103 U/L (7-52) H 12/09/17 05:45 Alkaline Phosphatase 66 U/L (34-104) 12/09/17 05:45 Troponin I 0.03 ng/mL (0.01-0.05) 12/06/17 17:20 Total Protein 5.2 gm/dL (6.0-8.3) L 12/09/17 05:45 Albumin 3.4 gm/dL (3.7-5.3) L 12/09/17 05:45 Globulin 1.8 gm/dL 12/09/17 05:45 Albumin/Globulin Ratio 1.9 (1.0-1.8) H 12/09/17 05:45 CA 27-29 Serial Monitr 9.0 U/mL (0.0-38.6) 12/09/17 05:45 TSH 0.70 uIU/ml (0.34-5.60) 12/06/17 17:20 Urine Source CLEAN C 12/06/17 16:13 Urine Color YELLOW 12/06/17 16:13 Urine Clarity HAZY (CLEAR) 12/06/17 16:13 Urine pH 6.0 (4.6 - 8.0) 12/06/17 16:13 Ur Specific [place] 1.015 (1.005-1.030) 12/06/17 16:13 Urine Protein TRACE mg/dL (NEGATIVE) 12/06/17 16:13 Urine Glucose (UA) 100 mg/dL (NEGATIVE) H 12/06/17 16:13 Urine Ketones NEGATIVE mg/dL (NEGATIVE) 12/06/17 16:13 Urine Blood TRACE (NEGATIVE) 12/06/17 16:13 Urine Nitrate NEGATIVE (NEGATIVE) 12/06/17 16:13 Urine Bilirubin NEGATIVE (NEGATIVE) 12/06/17 16:13 Urine Urobilinogen 1.0 E.U./dL (0.2 - 1.0) 12/06/17 16:13 Ur Leukocyte Esterase NEGATIVE (NEGATIVE) 12/06/17 16:13 Urine RBC 2-5 /hpf (0-5) 12/06/17 16:13 Urine WBC 0-2 /hpf (0-5) 12/06/17 16:13 Ur Epithelial Cells MODERATE /lpf (FEW) 12/06/17 16:13 Urine Bacteria NONE SEEN /hpf (NONE SEEN) 12/06/17 16:13 - Physical Exam Vitals and I&O: Vital Signs Temp 97.2 F 12/10/17 16:02 Pulse 88 12/10/17 16:02 Resp 17 12/10/17 16:02 BP 127/78 12/10/17 16:02 Pulse Ox 98 12/10/17 16:02 Intake & Output 12/09/17 12/10/17 12/10/17 18:59 06:59 18:59 Intake Total 1880 250 50 Balance 1880 250 50 Weight (lbs) 94.801 kg 96.071 kg 96.071 kg Intake: Intake, IV Amount 1100 50 50 Piperacillin Sodium/ 100 50 50 Tazobact 3.375 gm In Sodium Chloride 0.9% 50 ml @ 100 mls/hr IV Q6HR [facility] Rx#:[id number] Sodium Chloride 0.9% 1, 1000 000 ml @ 100 mls/hr IV . Q10H [facility] Rx#:[id number] Oral 780 200 Other: # Voids 3 2 # Bowel Movements 0 Stool Characteristics Soft Soft Soft Weight Source Bedscale Bedscale Bedscale Active Medications: Current Medications Acetaminophen (Tylenol) 650 mg PO Q6H PRN PRN Reason: Mild Pain or Fever >101 Stop: 02/05/18 05:08 Bupropion HCl (Wellbutrin Xl) 300 mg PO DAILY [facility] Stop: 02/05/18 08:59 Last Admin: 12/10/17 08:51 Dose: 300 mg Docusate Sodium (Colace) 100 mg PO DAILY [facility] Stop: 02/05/18 08:59 Last Admin: 12/10/17 08:43 Dose: 100 mg Gabapentin (Neurontin) 300 mg PO TID [facility] Stop: 02/05/18 08:59 Last Admin: 12/10/17 14:40 Dose: 300 mg Sodium Chloride (Nacl 0.9%) 1,000 mls @ 100 mls/hr IV .Q10H [facility] Stop: 02/04/18 21:59 Last Admin: 12/09/17 11:58 Dose: 100 mls/hr Piperacillin Sod/Tazobactam (Sod 3.375 gm/ Sodium Chloride) 50 mls @ 100 mls/ hr IV Q6HR [facility] Stop: 02/05/18 00:00 Last Admin: 12/10/17 12:41 Dose: 100 mls/hr Insulin Aspart (Novolog Insulin Sliding Scale) 0 units SUBQ Q6HR [facility]; Protocol Stop: 02/04/18 21:59 Last Admin: 12/10/17 12:43 Dose: 6 units Metformin HCl (Glucophage) 500 mg PO DAILY [facility] Stop: 02/05/18 08:59 Last Admin: 12/10/17 08:44 Dose: 500 mg Metoprolol Tartrate (Lopressor) 25 mg PO DAILY [facility] Stop: 02/05/18 08:59 Last Admin: 12/10/17 08:44 Dose: 25 mg Morphine Sulfate (Morphine) 1 mg IVP Q4H PRN PRN Reason: Pain (Moderate) Stop: 02/04/18 22:30 Last Admin: 12/10/17 06:34 Dose: 1 mg Ondansetron HCl (Zofran) 4 mg IV Q6H PRN PRN Reason: Nausea / Vomiting Stop: 02/05/18 10:48 Last Admin: 12/10/17 06:34 Dose: 4 mg Pantoprazole Sodium (Protonix) 40 mg PO DAILY [facility] Stop: 02/05/18 08:59 Last Admin: 12/10/17 08:44 Dose: 40 mg Simvastatin (Zocor) 40 mg PO DAILY [facility]; Protocol Stop: 02/09/18 08:59 Tramadol HCl (Ultram) 50 mg PO Q6HR PRN PRN Reason: Moderate pain Stop: 02/05/18 08:32 Last Admin: 12/08/17 20:29 Dose: 50 mg Trimethoprim/Sulfamethoxazole (Bactrim Ds) 1 tab PO BID [facility] Stop: 12/12/17 10:29 Last Admin: 12/10/17 08:43 Dose: 1 tab General: Alert, Oriented x3 HEENT: PERRLA, EOMI Neck: Supple Cardiovascular: Normal S1, Normal S2 Lungs: Clear to auscultation Abdomen: Bowel sounds, Soft Assessment/Plan - Problem List Patient Problems: All Active Problems BODY WIDE ACHES WITH FATIGUE (Acute) - Assessment Assessment: * Liver functions abnormalities improving * Gall stones * depression No evidence of metastases; Nutritional Asmnt/Malnutr-PDOC - Dietary Evaluation Malnutrition Findings (Please click <Entered> for more info): Nutritional Asmnt/Malnutrition Start: 12/07/17 16: 58 Text: Status: Complete Freq: Protocol: Document 12/07/17 16:58 LCHENG (Rec: 12/07/17 17:15 LCCELESTEG [email or web address]) Nutritional Asmnt/Malnutrition Patient General Information Nutritional Screening High Risk Diagnosis sepsis Pertinent Medical Hx/Surgical Hx HTN, DM, hydlipidemia, PUD/ GERD, C section, hysterectomy, breast CA Subjective Information Pt seen lying in bed at time of visit, awake and alert. Pt reported good appetite, consumed 100% of breakfast this morning and felt hungry now. Current Diet Order/ Nutrition Support low sodiuam, ADA diet Pertinent Medications colace, glucophage, novolog, protonix, piperacillin, nacl . 9%, vancomycin Pertinent Labs 7/3 Na 134, glucose 324, POC 260-314 7/2 A1c 8.8 Nutritional Hx/Data Height 1.55 m Height (Calculated Centimeters) 154.9 Current Weight (lbs) 94.801 kg Weight (Calculated Kilograms) 94.8 Weight (Calculated Grams) 26517.8 [place] Body Weight 105 Body Mass Index (BMI) 39.4 Weight Status Obese GI Symptoms GI Symptoms None Last BM not indicated Difficult in: None Skin Integrity/Comment: right partial mastectomy scar ,no open wounds noted, Estimated Nutritional Goals BEE in Kcals: Adj wt of IBW Calories/Kcals/Kg 25-30 Kcals Calculated 1425-7795 Protein: Adj wt of IBW Protein g/k-1.2 Protein Calculated 60-72 Fluid: ml 1500-1800ml (1ml/kcal) Nutritional Problem 1. Problem Problem altered nutrition related labs Etiology hx of DM Signs/Symptoms: glucose 324, POC 260-314, A1c 8.8 Malnutrition Alert Is there a minimum of two criteria No selected? Query Text:Check all the applicable criteria. A minimum of two criteria are recommended for diagnosis of either severe or non-severe malnutrition. Malnutrition Related to Morbid Obesity Malnutrition related to morbid obesity No Intervention/Recommendation Comments 1. Continue with low sodium, ADA diet as ordered. MD to adjust insulin for optimal glycemic control 2. Monitor PO intake, wt, labs and skin integrity 3. F/U as moderate risk in 3-5 days, 12/10-12/12, PO check 12/09 Expected Outcomes/Goals Expected Outcomes/Goals 1. PO intake to meet at least 75% of nutritional needs. 2. Wt stability, skin to remain intact, labs to approach WNL.
--- NOTE | 2017-12-10 17:35 | General Progress Note ---
Subjective - Review of Systems Service Date: 12/10/17 Objective - Results Result Diagrams: 12/09/17 05:45 12/09/17 05:45 Recent Labs: Laboratory Last Values WBC 3.2 Th/cmm (4.8-10.8) L 12/09/17 05:45 RBC 3.22 Mil/cmm (3.80-5.10) L 12/09/17 05:45 Hgb 10.0 gm/dL (12-16) L 12/09/17 05:45 Hct 28.7 % (41.0-60) L 12/09/17 05:45 MCV 89.1 fl (81-100) 12/09/17 05:45 MCH 30.9 pg (27.0-31.0) 12/09/17 05:45 MCHC Differential 34.7 pg (28.0-36.0) 12/09/17 05:45 RDW 15.0 % (11.5-20.0) 12/09/17 05:45 Plt Count 245 Th/cmm (150-400) 12/09/17 05:45 MPV 7.3 fl 12/09/17 05:45 Neutrophils % 55.8 % (40.0-80.0) 12/09/17 05:45 Lymphocytes % 31.8 % (20.0-50.0) 12/09/17 05:45 Monocytes % 8.5 % (2.0-10.0) 12/09/17 05:45 Eosinophils % 2.5 % (0.0-5.0) 12/09/17 05:45 Basophils % 1.4 % (0.0-2.0) 12/09/17 05:45 PT 10.2 SECONDS (9.5-11.5) 12/06/17 17:20 INR 0.98 (0.5-1.4) 12/06/17 17:20 PTT (Actin FS) 22.1 SECONDS (26.0-38.0) L 12/06/17 17:20 Sodium 137 mEq/L (136-145) 12/09/17 05:45 Potassium 3.7 mEq/L (3.5-5.1) 12/09/17 05:45 Chloride 107 mEq/L (98-107) 12/09/17 05:45 Carbon Dioxide 22.9 mEq/L (21.0-31.0) 12/09/17 05:45 Anion Gap 10.8 (7.0-16.0) 12/09/17 05:45 BUN 7 mg/dL (7-25) 12/09/17 05:45 Creatinine 0.8 mg/dL (0.6-1.2) 12/09/17 05:45 Est GFR ( Amer) > 60.0 ml/min (>90) 12/09/17 05:45 Est GFR (Non-Af Amer) > 60.0 ml/min 12/09/17 05:45 BUN/Creatinine Ratio 8.8 12/09/17 05:45 Glucose 174 mg/dL (70-105) H 12/09/17 05:45 POC Glucose 191 MG/DL (70 - 105) H 12/10/17 16:41 Hemoglobin A1c % 8.8 % (4.0-6.0) H 12/06/17 17:20 Whole Bld Lactic Acid 2.76 mmol/L (0.60-1.99) H* 12/06/17 19:45 Calcium 8.4 mg/dL (8.6-10.3) L 12/09/17 05:45 Total Bilirubin 1.0 mg/dL (0.3-1.0) 12/09/17 05:45 AST 40 U/L (13-39) H 12/09/17 05:45 ALT 103 U/L (7-52) H 12/09/17 05:45 Alkaline Phosphatase 66 U/L (34-104) 12/09/17 05:45 Troponin I 0.03 ng/mL (0.01-0.05) 12/06/17 17:20 Total Protein 5.2 gm/dL (6.0-8.3) L 12/09/17 05:45 Albumin 3.4 gm/dL (3.7-5.3) L 12/09/17 05:45 Globulin 1.8 gm/dL 12/09/17 05:45 Albumin/Globulin Ratio 1.9 (1.0-1.8) H 12/09/17 05:45 CA 27-29 Serial Monitr 9.0 U/mL (0.0-38.6) 12/09/17 05:45 TSH 0.70 uIU/ml (0.34-5.60) 12/06/17 17:20 Urine Source CLEAN C 12/06/17 16:13 Urine Color YELLOW 12/06/17 16:13 Urine Clarity HAZY (CLEAR) 12/06/17 16:13 Urine pH 6.0 (4.6 - 8.0) 12/06/17 16:13 Ur Specific [employer] 1.015 (1.005-1.030) 12/06/17 16:13 Urine Protein TRACE mg/dL (NEGATIVE) 12/06/17 16:13 Urine Glucose (UA) 100 mg/dL (NEGATIVE) H 12/06/17 16:13 Urine Ketones NEGATIVE mg/dL (NEGATIVE) 12/06/17 16:13 Urine Blood TRACE (NEGATIVE) 12/06/17 16:13 Urine Nitrate NEGATIVE (NEGATIVE) 12/06/17 16:13 Urine Bilirubin NEGATIVE (NEGATIVE) 12/06/17 16:13 Urine Urobilinogen 1.0 E.U./dL (0.2 - 1.0) 12/06/17 16:13 Ur Leukocyte Esterase NEGATIVE (NEGATIVE) 12/06/17 16:13 Urine RBC 2-5 /hpf (0-5) 12/06/17 16:13 Urine WBC 0-2 /hpf (0-5) 12/06/17 16:13 Ur Epithelial Cells MODERATE /lpf (FEW) 12/06/17 16:13 Urine Bacteria NONE SEEN /hpf (NONE SEEN) 12/06/17 16:13 - Physical Exam Vitals and I&O: Vital Signs Temp 97.2 F 12/10/17 16:02 Pulse 88 12/10/17 16:02 Resp 17 12/10/17 16:02 BP 127/78 12/10/17 16:02 Pulse Ox 98 12/10/17 16:02 Intake & Output 12/09/17 12/10/17 12/10/17 18:59 06:59 18:59 Intake Total 1880 250 50 Balance 1880 250 50 Weight (lbs) 94.801 kg 96.071 kg 96.071 kg Intake: Intake, IV Amount 1100 50 50 Piperacillin Sodium/ 100 50 50 Tazobact 3.375 gm In Sodium Chloride 0.9% 50 ml @ 100 mls/hr IV Q6HR [facility] Rx#:[id number] Sodium Chloride 0.9% 1, 1000 000 ml @ 100 mls/hr IV . Q10H [facility] Rx#:[id number] Oral 780 200 Other: # Voids 3 2 # Bowel Movements 0 Stool Characteristics Soft Soft Soft Weight Source Bedscale Bedscale Bedscale Active Medications: Current Medications Acetaminophen (Tylenol) 650 mg PO Q6H PRN PRN Reason: Mild Pain or Fever >101 Stop: 02/05/18 05:08 Bupropion HCl (Wellbutrin Xl) 300 mg PO DAILY [facility] Stop: 02/05/18 08:59 Last Admin: 12/10/17 08:51 Dose: 300 mg Docusate Sodium (Colace) 100 mg PO DAILY [facility] Stop: 02/05/18 08:59 Last Admin: 12/10/17 08:43 Dose: 100 mg Gabapentin (Neurontin) 300 mg PO TID [facility] Stop: 02/05/18 08:59 Last Admin: 12/10/17 14:40 Dose: 300 mg Sodium Chloride (Nacl 0.9%) 1,000 mls @ 100 mls/hr IV .Q10H [facility] Stop: 02/04/18 21:59 Last Admin: 12/09/17 11:58 Dose: 100 mls/hr Piperacillin Sod/Tazobactam (Sod 3.375 gm/ Sodium Chloride) 50 mls @ 100 mls/ hr IV Q6HR [facility] Stop: 02/05/18 00:00 Last Admin: 12/10/17 12:41 Dose: 100 mls/hr Insulin Aspart (Novolog Insulin Sliding Scale) 0 units SUBQ Q6HR [facility]; Protocol Stop: 02/04/18 21:59 Last Admin: 12/10/17 12:43 Dose: 6 units Metformin HCl (Glucophage) 500 mg PO DAILY [facility] Stop: 02/05/18 08:59 Last Admin: 12/10/17 08:44 Dose: 500 mg Metoprolol Tartrate (Lopressor) 25 mg PO DAILY [facility] Stop: 02/05/18 08:59 Last Admin: 12/10/17 08:44 Dose: 25 mg Morphine Sulfate (Morphine) 1 mg IVP Q4H PRN PRN Reason: Pain (Moderate) Stop: 02/04/18 22:30 Last Admin: 12/10/17 06:34 Dose: 1 mg Ondansetron HCl (Zofran) 4 mg IV Q6H PRN PRN Reason: Nausea / Vomiting Stop: 02/05/18 10:48 Last Admin: 12/10/17 06:34 Dose: 4 mg Pantoprazole Sodium (Protonix) 40 mg PO DAILY [facility] Stop: 02/05/18 08:59 Last Admin: 12/10/17 08:44 Dose: 40 mg Simvastatin (Zocor) 40 mg PO DAILY [facility]; Protocol Stop: 02/09/18 08:59 Tramadol HCl (Ultram) 50 mg PO Q6HR PRN PRN Reason: Moderate pain Stop: 02/05/18 08:32 Last Admin: 12/08/17 20:29 Dose: 50 mg Trimethoprim/Sulfamethoxazole (Bactrim Ds) 1 tab PO BID [facility] Stop: 12/12/17 10:29 Last Admin: 12/10/17 17:32 Dose: 1 tab General: Alert, Oriented x3 HEENT: PERRLA, EOMI Neck: Supple Cardiovascular: Normal S1, Normal S2 Lungs: Clear to auscultation Abdomen: Bowel sounds, Soft Assessment/Plan - Problem List Patient Problems: All Active Problems BODY WIDE ACHES WITH FATIGUE (Acute) - Assessment Assessment: * Liver functions abnormalities improving * Gall stones * depression No evidence of metastases; manjinder Eng. Advised to follow with primary oncologist for continuation of care. Nutritional Asmnt/Malnutr-PDOC - Dietary Evaluation Malnutrition Findings (Please click <Entered> for more info): Nutritional Asmnt/Malnutrition Start: 12/07/17 16: 58 Text: Status: Complete Freq: Protocol: Document 12/07/17 16:58 LCHENG (Rec: 12/07/17 17:15 CELESTE [email or web address]) Nutritional Asmnt/Malnutrition Patient General Information Nutritional Screening High Risk Diagnosis sepsis Pertinent Medical Hx/Surgical Hx HTN, DM, hydlipidemia, PUD/ GERD, C section, hysterectomy, breast CA Subjective Information Pt seen lying in bed at time of visit, awake and alert. Pt reported good appetite, consumed 100% of breakfast this morning and felt hungry now. Current Diet Order/ Nutrition Support low sodiuam, ADA diet Pertinent Medications colace, glucophage, novolog, protonix, piperacillin, nacl . 9%, vancomycin Pertinent Labs 7/3 Na 134, glucose 324, POC 260-314 7/2 A1c 8.8 Nutritional Hx/Data Height 1.55 m Height (Calculated Centimeters) 154.9 Current Weight (lbs) 94.801 kg Weight (Calculated Kilograms) 94.8 Weight (Calculated Grams) 77181.8 [place] Body Weight 105 Body Mass Index (BMI) 39.4 Weight Status Obese GI Symptoms GI Symptoms None Last BM not indicated Difficult in: None Skin Integrity/Comment: right partial mastectomy scar ,no open wounds noted, Estimated Nutritional Goals BEE in Kcals: Adj wt of IBW Calories/Kcals/Kg 25-30 Kcals Calculated 7473-9781 Protein: Adj wt of IBW Protein g/k-1.2 Protein Calculated 60-72 Fluid: ml 1500-1800ml (1ml/kcal) Nutritional Problem 1. Problem Problem altered nutrition related labs Etiology hx of DM Signs/Symptoms: glucose 324, POC 260-314, A1c 8.8 Malnutrition Alert Is there a minimum of two criteria No selected? Query Text:Check all the applicable criteria. A minimum of two criteria are recommended for diagnosis of either severe or non-severe malnutrition. Malnutrition Related to Morbid Obesity Malnutrition related to morbid obesity No Intervention/Recommendation Comments 1. Continue with low sodium, ADA diet as ordered. MD to adjust insulin for optimal glycemic control 2. Monitor PO intake, wt, labs and skin integrity 3. F/U as moderate risk in 3-5 days, 12/10-12/12, PO check 12/09 Expected Outcomes/Goals Expected Outcomes/Goals 1. PO intake to meet at least 75% of nutritional needs. 2. Wt stability, skin to remain intact, labs to approach WNL.
--- NOTE | 2017-12-14 02:17 | Discharge Summary ---
DATE OF DISCHARGE: 12/10/2017 HOSPITAL COURSE: The patient is well-known. Patient admitted at [facility] ____, was having nausea and vomiting, and the patient with diagnosis of lactic acidosis, nausea, vomiting ____ the patient was admitted and was given fluids, antibiotics, and the patient improved. The patient was in stable condition on 12/10/2017 and discharged with antibiotics, and the patient was advised to come back and see me in 2 days. CONDITION AT THE TIME OF DISCHARGE: Stable. ____ JOB# [id number]
== END 2017-12-10 18:00 | disposition home or self-care (01) | DRG 720 ==
LOC: ER 16:42 → TELE 19:52
PROVIDERS: ADMIT Internal Medicine; ATTEND Internal Medicine
DX: A41.9 Sepsis, unspecified organism (principal); D61.818 Other pancytopenia; E87.2 Acidosis; E11.65 Type 2 diabetes mellitus with hyperglycemia; C50.919 Malignant neoplasm of unspecified site of unspecified female breast; N39.0 Urinary tract infection, site not specified; F33.9 Major depressive disorder, recurrent, unspecified; K80.80 Other cholelithiasis without obstruction; R10.9 Unspecified abdominal pain; I10 Essential (primary) hypertension; E11.9 Type 2 diabetes mellitus without complications; E78.5 Hyperlipidemia, unspecified; K21.9 Gastro-esophageal reflux disease without esophagitis; Z83.3 Family history of diabetes mellitus; Z82.49 Family history of ischemic heart disease and other diseases of the circulatory system; Z90.710 Acquired absence of both cervix and uterus; Z82.3 Family history of stroke; Z79.84 Long term (current) use of oral hypoglycemic drugs; Z90.11 Acquired absence of right breast and nipple
CPT/HCPCS: 36415-UA; 71045-TC; 76700-TC; 78226-TC; 80048-TC; 80053-TC; 81001-TC; 82948-90; 83036-90; 83605; 84145-90; 84443-TC; 84484-TC; 85025-TC; 85610-TC; 85730-TC; 86300-90; 93005; 96374; 96375; A9537; J1815; J1885; J2270; J2405; J2543; J3370; J7030; J7040; Z7610

== ENCOUNTER 2018-03-04 17:15 | Inpatient (IN) | payer MEDICAID ==
[2018-03-04 18:13] LABS: URINE SOURCE CLEAN C
[2018-03-04 18:15] LABS: URINE BILIRUBIN NEGATIVE (NEGATIVE); URINE BLOOD TRACE (NEGATIVE); URINE GLUCOSE (UA) 100 mg/dL (NEGATIVE); URINE KETONE NEGATIVE (NEGATIVE); URINE LEUKOCYTE ESTERASE TRACE (NEGATIVE); URINE MICROSCOPIC INDICATED? YES; URINE NITRATE NEGATIVE (NEGATIVE); URINE PROTEIN NEGATIVE (NEGATIVE); URINE UROBILINOGEN 0.2 E.U./dL (0.2 - 1.0)
[2018-03-04 18:20] LABS: URINE CLARITY CLEAR (CLEAR); URINE COLOR YELLOW
[2018-03-04 18:22] LABS: URINE EPITHELIAL CELLS MODERATE /lpf (FEW); URINE RBC 0-2 /hpf (0-5)
[2018-03-04 18:23] LABS: URINE BACTERIA FEW /hpf (NONE SEEN)
[2018-03-04 18:31] LABS: AMPHETAMINE URINE NEGATIVE (NEGATIVE); BARBITURATES URINE NEGATIVE (NEGATIVE); BENZODIAZEPINES QUAL URINE NEGATIVE (NEGATIVE); CANNABINOID THC NEGATIVE (NEGATIVE); COCAINE METABOLITE QUAL URINE NEGATIVE (NEGATIVE); METHADONE URINE NEGATIVE (NEGATIVE); METHAMPHETAMINES QUAL URINE NEGATIVE (NEGATIVE); OPIATES (MORPHINE) QUAL. URINE NEGATIVE (NEGATIVE); PHENCYCLIDINE (PCP) URINE NEGATIVE (NEGATIVE); TRICYCLICS (TCA) QUAL. URINE NEGATIVE (NEGATIVE)
[2018-03-04 19:00] LABS: MEAN PLATELET VOLUME 7.2 fl; MONOCYTE ABSOLUTE 0.1 Th/cmm (0.3-1.0); NEUTROPHILE ABSOLUTE 1.8 Th/cmm (1.8-8.0); RED BLOOD COUNT 3.63 Mil/cmm (3.80-5.10)
[2018-03-04] MEDS ORDERED: Piperacillin Sodium/Tazobact 3.375 gm Vial IV ONE (19:01)
[2018-03-04 19:03] LABS: % BASOPHILS 1.1 % (0.0-2.0); % EOSINOPHILS 0.9 % (0.0-5.0); % LYMPHOCYTES 30.7 % (20.0-50.0); % MONOCYTES 3.4 % (2.0-10.0); % NEUTROPHILS 63.9 % (40.0-80.0); HEMOGLOBIN 10.9 gm/dL (12-16); LYMPHOCYTE ABSOLUTE 0.9 Th/cmm (1.5-3.0); MEAN CELL VOLUME 88.4 fl (81-100); MEAN CORPUSCULAR HEMOGLOBIN 30.1 pg (27.0-31.0); MEAN CORPUSCULAR HGB CONC 34.1 pg (28.0-36.0); PLATELET COUNT 275 Th/cmm (150-400); RED CELL DISTRIBUTION WIDTH 15.8 % (11.5-20.0)
[2018-03-04 19:07] LABS: WHITE BLOOD COUNT 2.8 Th/cmm (4.8-10.8)
--- NOTE | 2018-03-04 19:12 | ED Physician Chart ---
ED Chief Complaint/HPI - Patient Information Date Seen:: 03/04/18 Time Seen:: 17:32 Chief Complaint:: fatigue, productive cough, dysuria History of Present Illness:: fatigue, productive cough, dysuria in an immunosuppressed patient who has undergone a R partial mastectomy (05/2017) and who is currently on chemotherapy Tosol on a weekly basis. WBC 2.3 on 02/08/18 Allergies:: Allergies Allergy/AdvReac Type Severity Reaction Status Date / Time No Known Allergies Allergy Verified 06/02/17 22:37 Vitals:: Vital Signs - 8 hr 03/04/18 17:32 Temp 97.7 F HR 109 RR 16 BP 121/77 O2 Sat % 98 ED Past Medical History - Past Medical History Obtainable: Yes Past Medical History: DM, Other (R partial mastectomy for breast cancer) Surgical History: Family Medical History - Family Member Mother History Unknown: Yes Ethnicity: Living Status: Hx Family Cancer: No Hx Family Coronary Artery Disease: No Hx Family Congestive Heart Failure: No Hx Family Hypertension: No Hx Family Stroke: Yes Hx Family Diabetes: Yes ED Physical Exam - Physical Examination General/Constitutional: Awake Other Gen/Cons comments:: bald, pale. chronically ill appearing. Head: Atraumatic Eyes: PERRL Other Eyes comments:: pale conjuinctiva Other Skin comments:: pale skin ENMT: External ears, nose nl, TM canals nl Other ENMT comments:: poor dental hygiene. no abscesses Neck: Nontender, Full ROM w/o pain, No JVD, No nuchal rigidity, No bruit, No mass, No stridor Respiratory: Nl effort/Exclusion Cardio Vascular: RRR GI: No tenderness/rebounding/guarding, No organomegaly, No hernia, Normal BS's, Nondistended, No mass/bruits, No McBurney tenderness : No CVA tenderness Extremities: No tenderness or effusion, Full ROM, normal strength in all extremities, No edema, Normal digits & nails Other Extremities comments:: R extremity slightly swollen. No cervical, supraclavicular or axillar lymphadenopathy. Neuro/Psych: Alert/oriented, Normal sensory exam, Normal motor strength, Judgement/insight normal, Mood normal, Normal gait, No focal deficits Misc: Normal back, No paraspinal tenderness ED Labs/Radiology/EKG Results - Lab Results Results: Laboratory Tests 03/04/18 03/04/18 17:49 17:52 Urine Source CLEAN C Urine Color YELLOW Urine Clarity CLEAR Urine pH 6.0 Ur Specific [place] 1.010 Urine Protein NEGATIVE Urine Glucose (UA) 100 H Urine Ketones NEGATIVE Urine Blood TRACE Urine Nitrate NEGATIVE Urine Bilirubin NEGATIVE Urine Urobilinogen 0.2 Ur Leukocyte Esterase TRACE H Urine RBC 0-2 Urine WBC 2-5 Ur Epithelial Cells MODERATE Urine Bacteria FEW Urine Opiates Screen NEGATIVE Urine Methadone Screen NEGATIVE Ur Barbiturates Screen NEGATIVE Ur Tricyclics Screen NEGATIVE Ur Phencyclidine Scrn NEGATIVE Amphetamines Screen NEGATIVE U Methamphetamines Scrn NEGATIVE U Benzodiazepines Scrn NEGATIVE U Cocaine Metab Screen NEGATIVE U Cannabinoids Screen NEGATIVE ED Assessment - Assessment General Assessment: sign out given to Dr. Posadas at 7:15 p.m. Assessment/Comments:: EKG from 6:22:43 p.m.: normal sinus rhythm, flipped t wave in III, AVR, AVF, V1 -V3. ED Septic Shock - . Is Septic Shock (SBP<90, OR Lactate>4 mmol\L) present?: No - <6hrs of presentation: Vital Signs: Vital Signs - 8 hr 03/04/18 17:32 Temp 97.7 F HR 109 RR 16 BP 121/77 O2 Sat % 98 ED Reassessment (Disposition) - Diagnosis Diagnosis:: Right lower lobe pneumonia. Right breast cancer, on chemotherapy for same.
[2018-03-04 19:15] LABS: ALB/GLOB RATIO 1.7 (1.0-1.8); ALKALINE PHOSPHATASE 69 U/L (34-104); ANION GAP 12.8 (7.0-16.0); BILIRUBIN,TOTAL 1.4 mg/dL (0.3-1.0); BUN - UREA NITROGEN 9 mg/dL (7-25); CALCIUM SERUM 9.2 mg/dL (8.6-10.3); CARBON DIOXIDE 25.2 mEq/L (21.0-31.0); CHLORIDE 102 mEq/L (98-107); CREATININE - SERUM 0.6 mg/dL (0.6-1.2); GFR AFRICAN-AMERICAN > 60.0 ml/min (>90); GFR NON AFRICAN-AMERICAN > 60.0 ml/min; GLUCOSE 210 mg/dL (70-105); MAGNESIUM 1.8 mg/dL (1.9-2.7); PHOSPHOROUS 3.4 mg/dL (2.5-5.0); SGOT 99 U/L (13-39); SGPT/ALT 160 U/L (7-52); SODIUM SERUM 136 mEq/L (136-145); TOTAL PROTEIN,SERUM 6.3 gm/dL (6.0-8.3)
[2018-03-04] MEDS ORDERED: Sodium Chloride 0.9% 1,000 ML IV ONE (19:39)
[2018-03-04] MEDS ORDERED: Morphine Sulfate 2 mg/mL 1mL Syr IV STA (19:39)
[2018-03-04] MEDS ORDERED: Morphine Sulfate 2 mg/mL 1mL Syr ONE (19:41)
[2018-03-04] MEDS ORDERED: D5-0.45NS 1,000 ML IV SCH ×2 (22:16→23:45)
[2018-03-04] MEDS ORDERED: Hydrocodone/APAP 10 mg/325 mg Tab PO PRN (22:16)
[2018-03-04] MEDS: HYDROmorphone 2 mg/mL 1mL Vial IVP PRN (22:42)
[2018-03-05] MEDS: INSULIN ASPART SLIDING SCALE 100 UNITS/ML UNIT SUBQ SCH ×5 (00:14→20:24)
[2018-03-05] MEDS ORDERED: INSULIN ASPART SLIDING SCALE 100 UNITS/ML UNIT SUBQ SCH ×2 (00:15→07:30)
[2018-03-05] MEDS ORDERED: Piperacillin Sodium/Tazobact 3.375 gm Vial IV ONE ×2 (00:27→04:49)
[2018-03-05] MEDS: Azithromycin 500 MG in Sodium Chloride 0.9% 250 ML IV SCH (03:23)
--- NOTE | 2018-03-05 03:26 | Consultation ---
DATE OF CONSULTATION: 03/04/2018 INFECTIOUS DISEASE CONSULTATION REFERRING PHYSICIAN: Dr. Lopez. REASON FOR CONSULTATION: Septic shock, pneumonia, and UTI. HISTORY OF PRESENT ILLNESS: The patient is a 52-year-old female with past medical history of breast carcinoma diagnosed last year, had a right-sided partial mastectomy with lymph node resection performed in 05/2017. Since then, she was receiving monthly chemotherapy at oncologist in [place]. Her last chemotherapy was given on 03/02/2018, 2 days ago. Today she felt fatigue, developed some productive cough and dysuria, so she came to the ER for further evaluation and management. On initial evaluation, her temperature was 97.7 degrees Fahrenheit and blood pressure was 121/77. Urinalysis show mild bacteriuria. The WBC count is 2300. As the patient is on neutropenic immunosuppressed and has a bacteriuria, report also suggested right lower lobe pneumonia. The patient was started on Zosyn. ID consult was called for further antibiotic management. PAST MEDICAL HISTORY: Right breast cancer, status post mastectomy with a lymph node dissection receiving chemotherapy, and diabetes mellitus type 2. PAST SURGICAL HISTORY: Includes a right-sided partial mastectomy with lymph node dissection and a . ALLERGIES: NKDA. MEDICATIONS: See medication reconciliation sheet. Antibiotic gagnon, the patient is receiving Zosyn. FAMILY HISTORY: Diabetes mellitus type 2, runs in the family. History of stroke in the family. REVIEW OF SYSTEMS: GENERAL: The patient denies any fever or chills, but complains of generalized weakness. HEENT: No diplopia, no photophobia, no sore throat. RESPIRATORY: No cough, no shortness of breath. CARDIOVASCULAR: No chest pain or palpitation. GASTROINTESTINAL: No nausea, no vomiting, no diarrhea, no constipation. GENITOURINARY: The patient comes with dysuria, no hematuria. CENTRAL NERVOUS SYSTEM: No headache, no dizziness, no focal weakness. PHYSICAL EXAMINATION: VITAL SIGNS: Shows temperature is 97.8, pulse 79, respiration 18, blood pressure 106/69. GENERAL: The patient is comfortable, lying in the bed, not in acute distress. Obese. HEENT: Head is normocephalic, atraumatic. Oral cavity moist, pink tongue. Eyes: No pallor, no icterus. PERRLA, EOMI. NECK: Supple, no JVD, no carotid bruit. Trachea midline. CHEST: Bilateral breath sounds. No crackles or wheezing. The patient has a Port-A-Cath in the left upper chest. No sign of infection. HEART: S1, S2 within normal limits. Regular rhythm. No murmur, no gallop. ABDOMEN: Soft. The patient has tenderness in the left upper quadrant. Bowel sounds present. EXTREMITIES: No clubbing, no edema. NEUROLOGIC: She is alert, awake, and oriented x 3. No focal deficit. LABORATORY DATA: Current lab shows WBC count is 2800, hemoglobin 10.9, hematocrit 32, platelets are 275,000, neutrophils 64%. INR is 500. Sodium is 136, potassium 4, chloride 102, bicarbonate is 25, BUN is 9, creatinine 0.6, glucose is 210. Lactic acid is going up to 0.76. Magnesium 1.8. Total bilirubin 1.4, AST is 99 and ALT is 160, alkaline phosphatase is 69. CXR report is not available. IMPRESSION: 1. Urinary tract infection. 2. Right lower lobe pneumonia. 3. Diabetes mellitus type 2. 4. Obesity. 5. History of left breast carcinoma,Followed by her outside sales consultant physician. 6. Elevated liver enzymes, cholecystitis. RECOMMENDATIONS: Continue Zosyn and Zithromax. We will check a CT scan of abdomen and pelvis and check the chest x-ray. Thank you, Dr. Lopez for involving me in taking care of this patient. JOB# [id number] [email or web address]
[2018-03-05 04:41] LABS: % BASOPHILS 0.2 % (0.0-2.0); % LYMPHOCYTES 27.4 % (20.0-50.0); MEAN PLATELET VOLUME 7.4 fl; MONOCYTE ABSOLUTE 0.1 Th/cmm (0.3-1.0)
[2018-03-05 04:49] LABS: % MONOCYTES 3.4 % (2.0-10.0); HEMATOCRIT 30.8 % (41.0-60); HEMOGLOBIN 10.5 gm/dL (12-16); LYMPHOCYTE ABSOLUTE 0.9 Th/cmm (1.5-3.0); MEAN CELL VOLUME 88.6 fl (81-100); MEAN CORPUSCULAR HEMOGLOBIN 30.2 pg (27.0-31.0); MEAN CORPUSCULAR HGB CONC 34.1 pg (28.0-36.0); NEUTROPHILE ABSOLUTE 2.3 Th/cmm (1.8-8.0); PLATELET COUNT 259 Th/cmm (150-400); RED BLOOD COUNT 3.47 Mil/cmm (3.80-5.10); RED CELL DISTRIBUTION WIDTH 15.7 % (11.5-20.0)
[2018-03-05 04:53] LABS: WHITE BLOOD COUNT 3.3 Th/cmm (4.8-10.8)
[2018-03-05 05:27] LABS: BUN - UREA NITROGEN 9 mg/dL (7-25); CALCIUM SERUM 8.8 mg/dL (8.6-10.3); CARBON DIOXIDE 26.1 mEq/L (21.0-31.0); CHLORIDE 104 mEq/L (98-107); CREATININE - SERUM 0.6 mg/dL (0.6-1.2); GFR AFRICAN-AMERICAN > 60.0 ml/min (>90); GFR NON AFRICAN-AMERICAN > 60.0 ml/min; GLUCOSE 156 mg/dL (70-105); POTASSIUM SERUM 4.1 mEq/L (3.5-5.1); SODIUM SERUM 137 mEq/L (136-145)
--- NOTE | 2018-03-05 07:57 | Diagnostic Imaging Report ---
CHEST X-RAY: AP view INDICATION: Weakness, chemotherapy COMPARISON: 12/06/2017 FINDINGS: Left-sided subclavian vascular catheter is stable. Postsurgical changes right axillary region is noted. There is no focal consolidation or pleural effusions The heart is normal in size. The osseous structures demonstrate no acute abnormalities. IMPRESSION: No focal consolidation identified. Postsurgical changes.
--- NOTE | 2018-03-05 08:51 | Diagnostic Imaging Report ---
CHEST X-RAY: AP view INDICATION: Pneumonia COMPARISON: 03/04/2018 FINDINGS: Postsurgical changes are noted along the right axillary region. Additional surgical clip is seen projecting along the right lung base. Left-sided vascular catheter is stable. No focal consolidation, pleural effusions or evidence of CHF. Heart size is normal. IMPRESSION: No focal consolidation or evidence of CHF. Postsurgical changes.
--- NOTE | 2018-03-05 09:00 | Diagnostic Imaging Report ---
CT abdomen and pelvis without intravenous contrast Indication: Right lower quadrant tenderness Comparison: CT abdomen and pelvis on 10/18/2016 at ultrasound abdomen on 12/09/2017, Technique: Axial images were obtained from the lung bases to the bilateral proximal femurs without IV contrast. Coronal reconstructions were made. total DLP: 783, CTDI14.6 FINDINGS: Hypoventilatory changes of the lung bases are noted. Assessment of the solid organs is limited due to lack of IV contrast. No evidence of focal hepatic lesions. There are small stones measuring up to 7 mm along the neck of the gallbladder. No surrounding inflammatory changes along the gallbladder. No focal splenic, pancreatic, or adrenal lesions. No evidence of hydronephrosis or nephrolithiasis. The patient is status post hysterectomy. Diverticulosis is noted without evidence of diverticulitis. No evidence of acute appendicitis. No evidence free fluid or free air. Degenerative changes of the spine are noted. There is mild atherosclerosis. IMPRESSION: No evidence of acute appendicitis. No evidence of bowel obstruction. Small gallstones near the gallbladder neck. No surrounding inflammatory changes. Note patient has findings of gallstones seen on prior ultrasound. Please correlate with clinical findings. Mild atherosclerosis.
[2018-03-05] MEDS: HYDROmorphone 2 mg/mL 1mL Vial IVP PRN (09:35)
--- NOTE | 2018-03-05 15:27 | Infectious Disease Prog Note ---
Infectious Disease Subjective - Review of Systems Service Date: 03/05/18 Subjective: Doing better, no fever. Infectious Disease Objective - Results Result Diagrams: 03/07/18 04:25 03/05/18 04:19 Recent Labs: Laboratory Last Values WBC 3.3 Th/cmm (4.8-10.8) L 03/05/18 04:19 RBC 3.47 Mil/cmm (3.80-5.10) L 03/05/18 04:19 Hgb 10.5 gm/dL (12-16) L 03/05/18 04:19 Hct 30.8 % (41.0-60) L 03/05/18 04:19 MCV 88.6 fl (81-100) 03/05/18 04:19 MCH 30.2 pg (27.0-31.0) 03/05/18 04:19 MCHC Differential 34.1 pg (28.0-36.0) 03/05/18 04:19 RDW 15.7 % (11.5-20.0) 03/05/18 04:19 Plt Count 259 Th/cmm (150-400) 03/05/18 04:19 MPV 7.4 fl 03/05/18 04:19 Neutrophils % 68.0 % (40.0-80.0) 03/05/18 04:19 Lymphocytes % 27.4 % (20.0-50.0) 03/05/18 04:19 Monocytes % 3.4 % (2.0-10.0) 03/05/18 04:19 Eosinophils % 1.0 % (0.0-5.0) 03/05/18 04:19 Basophils % 0.2 % (0.0-2.0) 03/05/18 04:19 D-Dimer 500 ng/mL (100-400) H 03/04/18 18:55 Sodium 137 mEq/L (136-145) 03/05/18 04:19 Potassium 4.1 mEq/L (3.5-5.1) 03/05/18 04:19 Chloride 104 mEq/L (98-107) 03/05/18 04:19 Carbon Dioxide 26.1 mEq/L (21.0-31.0) 03/05/18 04:19 Anion Gap 11.0 (7.0-16.0) 03/05/18 04:19 BUN 9 mg/dL (7-25) 03/05/18 04:19 Creatinine 0.6 mg/dL (0.6-1.2) 03/05/18 04:19 Est GFR ( Amer) > 60.0 ml/min (>90) 03/05/18 04:19 Est GFR (Non-Af Amer) > 60.0 ml/min 03/05/18 04:19 BUN/Creatinine Ratio 15.0 03/05/18 04:19 Glucose 156 mg/dL (70-105) H 03/05/18 04:19 POC Glucose 184 MG/DL (70 - 105) H 03/05/18 11:39 Whole Bld Lactic Acid 1.52 mmol/L (0.60-1.99) 03/05/18 04:19 Calcium 8.8 mg/dL (8.6-10.3) 03/05/18 04:19 Phosphorus 3.4 mg/dL (2.5-5.0) 03/04/18 18:55 Magnesium 1.8 mg/dL (1.9-2.7) L 03/04/18 18:55 Total Bilirubin 1.4 mg/dL (0.3-1.0) H 03/04/18 18:55 AST 99 U/L (13-39) H 03/04/18 18:55 ALT 160 U/L (7-52) H 03/04/18 18:55 Alkaline Phosphatase 69 U/L (34-104) 03/04/18 18:55 Troponin I 0.03 ng/mL (0.01-0.05) 03/04/18 18:55 Total Protein 6.3 gm/dL (6.0-8.3) 03/04/18 18:55 Albumin 4.0 gm/dL (3.7-5.3) 03/04/18 18:55 Globulin 2.3 gm/dL 03/04/18 18:55 Albumin/Globulin Ratio 1.7 (1.0-1.8) 03/04/18 18:55 Urine Source CLEAN C 03/04/18 17:49 Urine Color YELLOW 03/04/18 17:49 Urine Clarity CLEAR (CLEAR) 03/04/18 17:49 Urine pH 6.0 (4.6 - 8.0) 03/04/18 17:49 Ur Specific [place] 1.010 (1.005-1.030) 03/04/18 17:49 Urine Protein NEGATIVE mg/dL (NEGATIVE) 03/04/18 17:49 Urine Glucose (UA) 100 mg/dL (NEGATIVE) H 03/04/18 17:49 Urine Ketones NEGATIVE mg/dL (NEGATIVE) 03/04/18 17:49 Urine Blood TRACE (NEGATIVE) 03/04/18 17:49 Urine Nitrate NEGATIVE (NEGATIVE) 03/04/18 17:49 Urine Bilirubin NEGATIVE (NEGATIVE) 03/04/18 17:49 Urine Urobilinogen 0.2 E.U./dL (0.2 - 1.0) 03/04/18 17:49 Ur Leukocyte Esterase TRACE (NEGATIVE) H 03/04/18 17:49 Urine RBC 0-2 /hpf (0-5) 03/04/18 17:49 Urine WBC 2-5 /hpf (0-5) 03/04/18 17:49 Ur Epithelial Cells MODERATE /lpf (FEW) 03/04/18 17:49 Urine Bacteria FEW /hpf (NONE SEEN) 03/04/18 17:49 Urine Opiates Screen NEGATIVE (NEGATIVE) 03/04/18 17:52 Urine Methadone Screen NEGATIVE (NEGATIVE) 03/04/18 17:52 Ur Barbiturates Screen NEGATIVE (NEGATIVE) 03/04/18 17:52 Ur Tricyclics Screen NEGATIVE (NEGATIVE) 03/04/18 17:52 Ur Phencyclidine Scrn NEGATIVE (NEGATIVE) 03/04/18 17:52 Amphetamines Screen NEGATIVE (NEGATIVE) 03/04/18 17:52 U Methamphetamines Scrn NEGATIVE (NEGATIVE) 03/04/18 17:52 U Benzodiazepines Scrn NEGATIVE (NEGATIVE) 03/04/18 17:52 U Cocaine Metab Screen NEGATIVE (NEGATIVE) 03/04/18 17:52 U Cannabinoids Screen NEGATIVE (NEGATIVE) 03/04/18 17:52 - Physical Exam Vitals and I&O: Vital Signs Temp 97.8 F 03/05/18 12:00 Pulse 79 03/05/18 12:00 Resp 20 03/05/18 12:00 BP 118/74 03/05/18 12:00 Pulse Ox 99 03/05/18 12:00 Intake & Output 03/04/18 03/05/18 03/05/18 18:59 06:59 18:59 Intake Total 2688.333 50 Output Total 50 Balance 2638.333 50 Weight (lbs) 90.718 kg 95.844 kg Intake: Intake, IV Amount 1398.333 50 Azithromycin 500 mg In 250 Sodium Chloride 0.9% 250 ml @ 250 mls/hr IV Q24HR [facility] Rx#:[id number] Piperacillin Sodium/ 98.333 50 Tazobact 3.375 gm In Sodium Chloride 0.9% 50 ml @ 100 mls/hr IV Q6HR [facility] Rx#:[id number] Piperacillin Sodium/ 50 Tazobact 3.375 gm In Sodium Chloride 0.9% 50 ml @ 100 mls/hr IV X1 [facility] Rx#:[id number] Sodium Chloride 0.9% 1, 1000 000 ml @ Wide Open IV . Q0M [facility] Rx#:[id number] Oral 1290 Output: Emesis 50 Other: # Voids 1 Weight Source Patient stated Bedscale Active Medications: Current Medications Bupropion HCl (Wellbutrin Xl) 300 mg PO DAILY [facility] Stop: 05/05/18 08:59 Docusate Sodium (Colace) 100 mg PO DAILY [facility] Stop: 05/05/18 08:59 Gabapentin (Neurontin) 300 mg PO TID [facility] Stop: 05/04/18 13:59 Last Admin: 03/05/18 13:22 Dose: 300 mg Hydromorphone HCl (Dilaudid) 2 mg IVP Q4HR PRN PRN Reason: Pain (Severe) LEVEL 7-10 Stop: 05/03/18 22:15 Last Admin: 03/05/18 09:35 Dose: 2 mg Piperacillin Sod/Tazobactam (Sod 3.375 gm/ Sodium Chloride) 50 mls @ 100 mls/ hr IV Q6HR [facility] Stop: 05/04/18 00:00 Last Infusion: 03/05/18 13:23 Dose: Infused Dextrose/Sodium Chloride (D5-0.45ns) 1,000 mls @ 10 mls/hr IV .Q24H [facility] Stop: 05/03/18 23:44 Azithromycin 500 mg/ Sodium (Chloride) 250 mls @ 250 mls/hr IV Q24HR [facility] Stop: 05/04/18 02:29 Last Infusion: 03/05/18 04:23 Dose: Infused Insulin Aspart (Novolog Insulin Sliding Scale) 0 units SUBQ ACHS ANGY; Protocol Stop: 05/04/18 00:10 Last Admin: 03/05/18 12:21 Dose: 2 units Metformin HCl (Glucophage) 500 mg PO TIDWM [facility] Stop: 05/04/18 11:59 Last Admin: 03/05/18 12:21 Dose: 500 mg Metoprolol Tartrate (Lopressor) 25 mg PO DAILY [facility] Stop: 05/05/18 08:59 Ondansetron HCl (Zofran) 4 mg IV Q4H PRN PRN Reason: Nausea / Vomiting Stop: 05/03/18 23:39 Last Admin: 03/05/18 10:57 Dose: 4 mg Pantoprazole Sodium (Protonix) 40 mg PO DAILY [facility] Stop: 05/05/18 08:59 Simvastatin (Zocor) 40 mg PO HS ANGY; Protocol Stop: 05/05/18 20:59 Temazepam (Restoril) 15 mg PO HS PRN; Protocol PRN Reason: Insomnia Stop: 05/04/18 11:23 Tramadol HCl (Ultram) 50 mg PO Q6H PRN PRN Reason: Pain (Moderate) Stop: 05/04/18 11:18 General: no acute distress, well developed, well nourished HEENT: atraumatic, normocephalic, PERRLA Neck: supple, no thyromegaly Cardiovascular: S1S2, regular Lungs: clear to auscultation bilaterally, clear to percussion Abdomen: soft, no tender, no distended Extremities: no cyanosis, no clubbing, no edema Neurological: awake, alert, oriented Skin: intact, other (mastectomy on right scar is healthy) Infectious Disease Assmt/Plan - Assessment Assessment: 1. Urinary tract infection. 2. Right lower lobe pneumonia. 3. Diabetes mellitus type 2. 4. Obesity. 5. History of left breast carcinoma, followed by her urban design consultant at [place]. 6. Neutropenia.. 7. Elevated liver enzymes, cholecystitis or colitis. - Plan Plan: Depending on urine culture report, will define final antibiotic therapy. Nutritional Asmnt/Malnutr-PDOC - Dietary Evaluation Malnutrition Findings (Please click <Entered> for more info): Nutritional Asmnt/Malnutrition Start: 03/05/18 12: 12 Text: Status: Active Freq: Protocol: Document 03/05/18 12:12 [email or web address] (Rec: 03/05/18 12:14 CUBA [id number] [email or web address]) Nutritional Asmnt/Malnutrition Patient General Information Nutritional Screening High Risk Consult Diagnosis UTI, Leukopenia, Severe Weakness Pertinent Medical Hx/Surgical Hx Diabetes Subjective Information Patient Chinese speaking. Current Diet Order/ Nutrition Support 60gm CCHO Patient / S.O Not Indicated Pertinent Medications ABX, D5-0.45NS @10ml/hr, Colace, novolog, Metformin, Zofran, Prtonix Pertinent Labs Glucose 156-309 Nutritional Hx/Data Height 1.55 m Height (Calculated Centimeters) 154.9 Current Weight (lbs) 95.708 kg Weight (Calculated Kilograms) 95.7 Weight (Calculated Grams) 17293.0 [place] Body Weight 105 % [place] Body Weight 200 Body Mass Index (BMI) 39.9 Recent Weight Change No Weight Status Morbidly Obese GI Symptoms GI Symptoms None Last BM None noted since admission Difficult in: None Food Allergies No Cultural/Ethnic/Rastafarian Belief None indicated Usual diet at home Unknown Skin Integrity/Comment: Jarvis 20, 1+pitting edema, Intact Current %PO Good (75-100%) Estimated Nutritional Goals BEE in Kcals: Adj wt of IBW Calories/Kcals/Kg 25-30 kcal/kg Using Adj BW 59. 7kg Kcals Calculated ~7798-5407 kcal/day Protein: Adj wt of IBW Protein g/k-1.2 gm/kg Protein Calculated ~60-70 gm/day Fluid: ml ~7328-2112 ml/day (1 ml/day) Nutritional Problem 1. Problem Problem Altered nutrition related lab values related to Etiology uncontrolled hyperglycemia aeb Signs/Symptoms: Glucose 156-309 Intervention/Recommendation Comments 1. Continue 60 gm CCHO diet as tolerated by patient. 2. MD to continue to modify insulin regimen for optimal glycemic control. Expected Outcomes/Goals Expected Outcomes/Goals Oral intake >75% of meals, weight stable or trend toward IBW, nutrition related labs/ glucose noramlizes. F/U in3-5 days as MR (03/08-)
--- NOTE | 2018-03-05 19:25 | Consultation ---
DATE OF CONSULTATION: 03/05/2018 HEMATOLOGY ONCOLOGY CONSULTATION REASON FOR CONSULTATION: Breast cancer, leukopenia. Details mostly prepared by Dr. Lopez. HISTORY OF PRESENT ILLNESS: The patient is a 52-year-old female with a history of breast cancer, status post right mastectomy in 05/2017 and then started on chemotherapy around August or September of this year and she is getting now weekly Taxol and she is scheduled to have the last treatment next week. The patient presented with nausea, vomiting and found to be leukopenic; therefore, I was asked to evaluate. The patient is seen by the ID specialist and being treated for UTI and sepsis. PAST MEDICAL HISTORY: Right breast cancer, status post right mastectomy and undergoing adjuvant chemotherapy, history of diabetes. PAST SURGICAL HISTORY: Right mastectomy as mentioned above with . MEDICATIONS: Reviewed. FAMILY HISTORY: Diabetes. PHYSICAL EXAMINATION: GENERAL: The patient is awake with afebrile. VITAL SIGNS: Blood pressure is stable, alopecia. HEENT: No oral lesions. No ulcerations or bleeding. NECK: No lymphadenopathy. CHEST: Left side MediPort. Right breast mastetectomy. ABDOMEN: Soft. EXTREMITIES: Unremarkable. LABORATORY DATA: White count 3.3, hemoglobin 10.5, platelet count 259, neutrophils is 68%. Chemistry: Her creatinine 0.6. Liver functions, AST and ALT are elevated. Also, the bilirubin total is elevated and has been elevated on previous admissions. Urinalysis, trace leukocyte esterase. Imaging studies were reviewed. CT scan of the abdomen and pelvis reported no evidence of appendicitis or obstruction and small gallstones. ASSESSMENT: 1. Leukopenia secondary to chemotherapy. The patient is not neutropenic and continue to monitor the WBC without Neupogen for now. 2. Breast cancer is undergoing chemotherapy with mild persistent leukopenia. 3. Abnormal liver functions and bilirubin. This has been abnormal on previous admission. The patient has gallstones and currently on antibiotics ____ and Zosyn per the ID specialist. 4. Mild normocytic anemia, most likely related to chemotherapy. No transfusion is required. I will add DVT prophylaxis, Lovenox to the treatment regimen. Thank you, Dr. Lopez, for the opportunity to participate in the care of this patient. JOB# [id number]
--- NOTE | 2018-03-05 20:55 | History & Physical ---
ADMIT DATE: 03/04/2018 This patient is known to me from my clinic practice and this is a 52-year-old female admitted here through the Emergency Room with the history of septic shock, pneumonia and UTI. HISTORY OF PRESENT ILLNESS: The patient is a 52-year-old female with past medical history of breast carcinoma diagnosed last year, had a right-sided partial mastectomy with lymph node resection performed in 05/2017. Since then, she was receiving monthly chemotherapy at Dr. Pickard's office, oncologist in [place] and her last chemotherapy was given on 03/02/2018 two days ago and following which she felt fatigued and developed some productive cough and dysuria, hence she came to the Emergency Room for the evaluation and management. On initial evaluation, her temperature was 97.7 and blood pressure was 121/77. Urinalysis showed mild bacteriuria. The WBC count was 2300. As the patient is neutropenic, immunosuppressed and also has bacteriuria. Report also suggested that the patient had right lower lobe pneumonia as per the chest x-ray and the patient was given IV bolus normal saline and started on Zosyn and admitted on to the telemetry in the Med/Surg. Currently, the patient is also reported to have vomiting and nausea and so started her on the Zofran and her blood sugars were greater than 300. Hence, we decreased the D5 half and then started her on the D5 half NS at 10 mL an hour only. PAST MEDICAL HISTORY: Significant for right breast cancer, status post mastectomy with lymph node resection receiving chemotherapy, diabetes type 2, hyperlipidemia and she also has depression and she is on medication for the same. PAST SURGICAL HISTORY: Includes right-sided partial mastectomy with lymph node resection and and hysterectomy. ALLERGIES: No known allergies. MEDICATIONS: See the medication reconciliation sheet and I also started her on the home medications of metformin 500 mg t.i.d., Neurontin 300 mg t.i.d. and tramadol 50 mg q.4 hours p.r.n. for pain and also added Restoril 15 mg as needed for the sleep. FAMILY HISTORY: Diabetes type 2 runs in the family and there is a history of stroke in the family. REVIEW OF SYSTEMS: CONSTITUTIONAL: The patient is well built and slightly overweight. She denies any fever or chills, but she is complaining of generalized weakness and nausea symptoms and then at the time of examination she was about to throw up, but she was stable and alert and oriented and answered all the questions. General fatigue and weakness and pain all over the body. HEENT: The patient did not have any sore throat, no headache, no photophobia. RESPIRATORY: No cough. No shortness of breath. CARDIOVASCULAR: No chest pain, palpitations. GASTROINTESTINAL: No nausea, no vomiting, no diarrhea, no constipation. GENITOURINARY: The patient had dysuria, frequency, urgency and no hematuria. CENTRAL NERVOUS SYSTEM: She had no headache and no dizziness and no focal weakness, but she had generalized weakness. PHYSICAL EXAMINATION: GENERAL: She is awake and alert and lying in the bed. In general, she is not in any acute distress. She is obese and comfortable, but having severe nausea. VITAL SIGNS: Today, blood pressure 110/62, temperature 96.8, pulse 82, respirations 20, saturating 100% on room air. HEENT: Head is normocephalic, atraumatic. Oral cavity moist. Tongue is pink. Eyes: Has no pallor, no icterus. PERRLA and EOMI. NECK: Supple, no JVD, no carotid bruit. Trachea in the midline. CHEST: Bilateral breath sounds heard and no crackles or wheezing and the patient has a Port-A-Cath in the left upper chest and no sign of infection noted. HEART: S1, S2 heard with a regular rate and rhythm. No murmurs appreciated. ABDOMEN: Soft and the patient has good bowel sounds, but she had tenderness in the left upper quadrant. EXTREMITIES: No clubbing and no edema. NEUROLOGIC: The patient is awake and alert and oriented x 3, no focal deficit. LABORATORY AND DIAGNOSTIC DATA: Laboratory data reviewed shows severe leukopenia of WBC 2800, hemoglobin 10.9, hematocrit 32, platelets 275, neutrophils 64% and her INR is ____. Sodium is 136, potassium 4, chloride 102, bicarbonate 25, BUN 9, creatinine 0.6, glucose 210, lactic acid is increased to 2.6 and now today it has come down to 1.52 and magnesium is 1.8 and bilirubin 1.4, AST 99, ALT 160, alkaline phosphatase is 69 and chest x-ray read by the Emergency Room physician shows right lower lobe pneumonia. IMPRESSION: 1. Urinary tract infection. 2. Right lower lobe pneumonia. 3. Severe leukopenia. 4. Diabetes mellitus type 2. 5. Obesity. 6. History of right breast carcinoma status post mastectomy. 7. On chemotherapy. 8. Elevated liver enzymes, cholecystitis or colitis. 9. Severe generalized weakness. 10. Elevated lactic acid. 11. Septic shock, resolved by fluid administration and antibiotics. 12. Full code. RECOMMENDATION: The plan is that we will request Dr. Alexis Noriega to do the ID consult and will follow her Accu-Cheks a.c. and at bedtime with the NovoLog and we will continue all her home medications and follow the blood culture and urine culture and continue the antibiotics. Once the patient is resolved with her symptoms of nausea, vomiting and generalized weakness, the patient will be discharged home or to appropriate facility based on her condition at the time of the discharge. [facility]# [id number]
[2018-03-06] MEDS: Azithromycin 500 MG in Sodium Chloride 0.9% 250 ML IV SCH (01:52)
[2018-03-06 05:00] LABS: % BASOPHILS 0.4 % (0.0-2.0); % EOSINOPHILS 1.6 % (0.0-5.0); % LYMPHOCYTES 31.4 % (20.0-50.0); % MONOCYTES 2.9 % (2.0-10.0); % NEUTROPHILS 63.7 % (40.0-80.0); HEMOGLOBIN 10.6 gm/dL (12-16); LYMPHOCYTE ABSOLUTE 0.8 Th/cmm (1.5-3.0); MEAN CELL VOLUME 89.2 fl (81-100); MEAN CORPUSCULAR HEMOGLOBIN 30.5 pg (27.0-31.0); MEAN CORPUSCULAR HGB CONC 34.2 pg (28.0-36.0); MEAN PLATELET VOLUME 7.2 fl; MONOCYTE ABSOLUTE 0.1 Th/cmm (0.3-1.0); NEUTROPHILE ABSOLUTE 1.8 Th/cmm (1.8-8.0); PLATELET COUNT 249 Th/cmm (150-400); RED BLOOD COUNT 3.48 Mil/cmm (3.80-5.10); RED CELL DISTRIBUTION WIDTH 15.4 % (11.5-20.0)
[2018-03-06 05:11] LABS: WHITE BLOOD COUNT 2.7 Th/cmm (4.8-10.8)
[2018-03-06] MEDS: INSULIN ASPART SLIDING SCALE 100 UNITS/ML UNIT SUBQ SCH ×4 (08:01→20:46)
[2018-03-06] MEDS: Pantoprazole 40 mg EC Tab PO SCH (08:15)
[2018-03-06] MEDS: buPROPion XL 150 mg T 24 H PO SCH (08:15)
[2018-03-06] MEDS: Enoxaparin 40 mg/0.4 mL 0.4mL Syr SUBQ SCH (08:16)
--- NOTE | 2018-03-06 17:33 | General Progress Note ---
Subjective - Review of Systems Service Date: 03/06/18 Events since last encounter: Nausea and vomiting, beter with zofran. slept well. today ate well Subjective: Afebrile, awake, alert, no N/V Objective - Results Result Diagrams: 03/06/18 04:45 03/05/18 04:19 Recent Labs: Laboratory Last Values WBC 2.7 Th/cmm (4.8-10.8) L 03/06/18 04:45 RBC 3.48 Mil/cmm (3.80-5.10) L 03/06/18 04:45 Hgb 10.6 gm/dL (12-16) L 03/06/18 04:45 Hct 31.0 % (41.0-60) L 03/06/18 04:45 MCV 89.2 fl (81-100) 03/06/18 04:45 MCH 30.5 pg (27.0-31.0) 03/06/18 04:45 MCHC Differential 34.2 pg (28.0-36.0) 03/06/18 04:45 RDW 15.4 % (11.5-20.0) 03/06/18 04:45 Plt Count 249 Th/cmm (150-400) 03/06/18 04:45 MPV 7.2 fl 03/06/18 04:45 Neutrophils % 63.7 % (40.0-80.0) 03/06/18 04:45 Lymphocytes % 31.4 % (20.0-50.0) 03/06/18 04:45 Monocytes % 2.9 % (2.0-10.0) 03/06/18 04:45 Eosinophils % 1.6 % (0.0-5.0) 03/06/18 04:45 Basophils % 0.4 % (0.0-2.0) 03/06/18 04:45 D-Dimer 500 ng/mL (100-400) H 03/04/18 18:55 Sodium 137 mEq/L (136-145) 03/05/18 04:19 Potassium 4.1 mEq/L (3.5-5.1) 03/05/18 04:19 Chloride 104 mEq/L (98-107) 03/05/18 04:19 Carbon Dioxide 26.1 mEq/L (21.0-31.0) 03/05/18 04:19 Anion Gap 11.0 (7.0-16.0) 03/05/18 04:19 BUN 9 mg/dL (7-25) 03/05/18 04:19 Creatinine 0.6 mg/dL (0.6-1.2) 03/05/18 04:19 Est GFR ( Amer) > 60.0 ml/min (>90) 03/05/18 04:19 Est GFR (Non-Af Amer) > 60.0 ml/min 03/05/18 04:19 BUN/Creatinine Ratio 15.0 03/05/18 04:19 Glucose 156 mg/dL (70-105) H 03/05/18 04:19 POC Glucose 204 MG/DL (70 - 105) H 03/06/18 16:04 Whole Bld Lactic Acid 1.52 mmol/L (0.60-1.99) 03/05/18 04:19 Calcium 8.8 mg/dL (8.6-10.3) 03/05/18 04:19 Phosphorus 3.4 mg/dL (2.5-5.0) 03/04/18 18:55 Magnesium 1.8 mg/dL (1.9-2.7) L 03/04/18 18:55 Total Bilirubin 1.4 mg/dL (0.3-1.0) H 03/04/18 18:55 AST 99 U/L (13-39) H 03/04/18 18:55 ALT 160 U/L (7-52) H 03/04/18 18:55 Alkaline Phosphatase 69 U/L (34-104) 03/04/18 18:55 Troponin I 0.03 ng/mL (0.01-0.05) 03/04/18 18:55 Total Protein 6.3 gm/dL (6.0-8.3) 03/04/18 18:55 Albumin 4.0 gm/dL (3.7-5.3) 03/04/18 18:55 Globulin 2.3 gm/dL 03/04/18 18:55 Albumin/Globulin Ratio 1.7 (1.0-1.8) 03/04/18 18:55 Urine Source CLEAN C 03/04/18 17:49 Urine Color YELLOW 03/04/18 17:49 Urine Clarity CLEAR (CLEAR) 03/04/18 17:49 Urine pH 6.0 (4.6 - 8.0) 03/04/18 17:49 Ur Specific [place] 1.010 (1.005-1.030) 03/04/18 17:49 Urine Protein NEGATIVE mg/dL (NEGATIVE) 03/04/18 17:49 Urine Glucose (UA) 100 mg/dL (NEGATIVE) H 03/04/18 17:49 Urine Ketones NEGATIVE mg/dL (NEGATIVE) 03/04/18 17:49 Urine Blood TRACE (NEGATIVE) 03/04/18 17:49 Urine Nitrate NEGATIVE (NEGATIVE) 03/04/18 17:49 Urine Bilirubin NEGATIVE (NEGATIVE) 03/04/18 17:49 Urine Urobilinogen 0.2 E.U./dL (0.2 - 1.0) 03/04/18 17:49 Ur Leukocyte Esterase TRACE (NEGATIVE) H 03/04/18 17:49 Urine RBC 0-2 /hpf (0-5) 03/04/18 17:49 Urine WBC 2-5 /hpf (0-5) 03/04/18 17:49 Ur Epithelial Cells MODERATE /lpf (FEW) 03/04/18 17:49 Urine Bacteria FEW /hpf (NONE SEEN) 03/04/18 17:49 Urine Opiates Screen NEGATIVE (NEGATIVE) 03/04/18 17:52 Urine Methadone Screen NEGATIVE (NEGATIVE) 03/04/18 17:52 Ur Barbiturates Screen NEGATIVE (NEGATIVE) 03/04/18 17:52 Ur Tricyclics Screen NEGATIVE (NEGATIVE) 03/04/18 17:52 Ur Phencyclidine Scrn NEGATIVE (NEGATIVE) 03/04/18 17:52 Amphetamines Screen NEGATIVE (NEGATIVE) 03/04/18 17:52 U Methamphetamines Scrn NEGATIVE (NEGATIVE) 03/04/18 17:52 U Benzodiazepines Scrn NEGATIVE (NEGATIVE) 03/04/18 17:52 U Cocaine Metab Screen NEGATIVE (NEGATIVE) 03/04/18 17:52 U Cannabinoids Screen NEGATIVE (NEGATIVE) 03/04/18 17:52 - Physical Exam Vitals and I&O: Vital Signs Temp 96.9 F 03/06/18 15:44 Pulse 104 03/06/18 15:44 Resp 18 03/06/18 16:00 BP 106/58 03/06/18 15:44 Pulse Ox 96 03/06/18 15:44 Intake & Output 03/05/18 03/06/18 03/06/18 18:59 06:59 18:59 Intake Total 100 710 Balance 100 710 Weight (lbs) 95.708 kg Intake: Intake, IV Amount 100 350 Azithromycin 500 mg In 250 Sodium Chloride 0.9% 250 ml @ 250 mls/hr IV Q24HR [facility] Rx#:[id number] Piperacillin Sodium/ 100 100 Tazobact 3.375 gm In Sodium Chloride 0.9% 50 ml @ 100 mls/hr IV Q6HR [facility] Rx#:[id number] Oral 360 Other: # Voids 3 Weight Source Bedscale Active Medications: Current Medications Bupropion HCl (Wellbutrin Xl) 300 mg PO DAILY [facility] Stop: 05/05/18 08:59 Last Admin: 03/06/18 08:15 Dose: 300 mg Docusate Sodium (Colace) 100 mg PO DAILY [facility] Stop: 05/05/18 08:59 Last Admin: 03/06/18 08:15 Dose: 100 mg Enoxaparin Sodium (Lovenox) 40 mg SUBQ DAILY [facility] Stop: 05/05/18 08:59 Last Admin: 03/06/18 08:16 Dose: 40 mg Gabapentin (Neurontin) 300 mg PO TID [facility] Stop: 05/04/18 13:59 Last Admin: 03/06/18 14:15 Dose: 300 mg Hydromorphone HCl (Dilaudid) 2 mg IVP Q4HR PRN PRN Reason: Pain (Severe) LEVEL 7-10 Stop: 05/03/18 22:15 Last Admin: 03/05/18 09:35 Dose: 2 mg Piperacillin Sod/Tazobactam (Sod 3.375 gm/ Sodium Chloride) 50 mls @ 100 mls/ hr IV Q6HR [facility] Stop: 05/04/18 00:00 Last Admin: 03/06/18 11:07 Dose: 100 mls/hr Dextrose/Sodium Chloride (D5-0.45ns) 1,000 mls @ 10 mls/hr IV .Q24H [facility] Stop: 05/03/18 23:44 Azithromycin 500 mg/ Sodium (Chloride) 250 mls @ 250 mls/hr IV Q24HR [facility] Stop: 05/04/18 02:29 Last Infusion: 03/06/18 02:52 Dose: Infused Insulin Aspart (Novolog Insulin Sliding Scale) 0 units SUBQ ACHS [facility]; Protocol Stop: 05/04/18 00:10 Last Admin: 03/06/18 12:08 Dose: 4 units Metformin HCl (Glucophage) 500 mg PO TIDWM [facility] Stop: 05/04/18 11:59 Last Admin: 03/06/18 16:05 Dose: 500 mg Metoprolol Tartrate (Lopressor) 25 mg PO DAILY [facility] Stop: 05/05/18 08:59 Last Admin: 03/06/18 08:21 Dose: Not Given Ondansetron HCl (Zofran) 4 mg IV Q4H PRN PRN Reason: Nausea / Vomiting Stop: 05/03/18 23:39 Last Admin: 03/05/18 16:25 Dose: 4 mg Pantoprazole Sodium (Protonix) 40 mg PO DAILY [facility] Stop: 05/05/18 08:59 Last Admin: 03/06/18 08:15 Dose: 40 mg Simvastatin (Zocor) 40 mg PO HS [facility]; Protocol Stop: 05/05/18 20:59 Temazepam (Restoril) 15 mg PO HS PRN; Protocol PRN Reason: Insomnia Stop: 05/04/18 11:23 Tramadol HCl (Ultram) 50 mg PO Q6H PRN PRN Reason: Pain (Moderate) Stop: 05/04/18 11:18 General: Alert, Oriented x3, Cooperative HEENT: Atraumatic, PERRLA, EOMI Neck: Supple, JVD (no), LAD, Other Cardiovascular: Normal S1, Normal S2 Lungs: Clear to auscultation Abdomen: Bowel sounds, Soft Assessment/Plan - Assessment Assessment: UTI Right lower lobe pneumonia Severe Leukopenia Diabetes mellitus obesity Hx Breast CA, s/p mastectomy on chemotherapy elevated liver enzymes generalized weakness elevated lactic acid on admission Septic shock , resolved full code - Plan Plan: continue present management follow urine culture results. Nutritional Asmnt/Malnutr-PDOC - Dietary Evaluation Malnutrition Findings (Please click <Entered> for more info): Nutritional Asmnt/Malnutrition Start: 03/05/18 12: 12 Text: Status: Complete Freq: Protocol: Document 03/05/18 12:12 CUBA (Rec: 03/05/18 12:14 [email or web address]- [email or web address]) Nutritional Asmnt/Malnutrition Patient General Information Nutritional Screening High Risk Consult Diagnosis UTI, Leukopenia, Severe Weakness Pertinent Medical Hx/Surgical Hx Diabetes Subjective Information Spoke with patient and family member at bedside. States she is nauseous and unable to eat lunch. Patient appeared uncomfortable; diet education not appropriate at this time. Current Diet Order/ Nutrition Support 60gm CCHO Patient / S.O Not Indicated Pertinent Medications ABX, D5-0.45NS @10ml/hr, Colace, novolog, Metformin, Zofran, Prtonix Pertinent Labs Glucose 156-309 Nutritional Hx/Data Height 1.55 m Height (Calculated Centimeters) 154.9 Current Weight (lbs) 95.708 kg Weight (Calculated Kilograms) 95.7 Weight (Calculated Grams) 63494.0 [place] Body Weight 105 % [place] Body Weight 200 Body Mass Index (BMI) 39.9 Recent Weight Change No Weight Status Morbidly Obese GI Symptoms GI Symptoms None Last BM None noted since admission Difficult in: None Food Allergies No Cultural/Ethnic/Spiritism Belief None indicated Usual diet at home Unknown Skin Integrity/Comment: [place] 20, 1+pitting edema, Intact Current %PO Good (75-100%) Estimated Nutritional Goals BEE in Kcals: Adj wt of IBW Calories/Kcals/Kg 25-30 kcal/kg Using Adj BW 59. 7kg Kcals Calculated ~3861-5673 kcal/day Protein: Adj wt of IBW Protein g/k-1.2 gm/kg Protein Calculated ~60-70 gm/day Fluid: ml ~0973-0536 ml/day (1 ml/day) Nutritional Problem 1. Problem Problem Altered nutrition related lab values related to Etiology uncontrolled hyperglycemia aeb Signs/Symptoms: Glucose 156-309 Intervention/Recommendation Comments 1. Continue 60 gm CCHO diet as tolerated by patient. 2. MD to continue to modify insulin regimen for optimal glycemic control. Expected Outcomes/Goals Expected Outcomes/Goals Oral intake >75% of meals, weight stable or trend toward IBW, nutrition related labs/ glucose noramlizes. F/U in3-5 days as MR (03/08-)
[2018-03-07] MEDS: Azithromycin 500 MG in Sodium Chloride 0.9% 250 ML IV SCH (02:06)
[2018-03-07 04:58] LABS: % BASOPHILS 0.3 % (0.0-2.0); % EOSINOPHILS 1.5 % (0.0-5.0); % LYMPHOCYTES 38.8 % (20.0-50.0); % MONOCYTES 4.8 % (2.0-10.0); % NEUTROPHILS 54.6 % (40.0-80.0); HEMATOCRIT 29.4 % (41.0-60); HEMOGLOBIN 9.8 gm/dL (12-16); MEAN CELL VOLUME 89.4 fl (81-100); MEAN CORPUSCULAR HEMOGLOBIN 29.9 pg (27.0-31.0); MEAN CORPUSCULAR HGB CONC 33.5 pg (28.0-36.0); MEAN PLATELET VOLUME 7.3 fl; MONOCYTE ABSOLUTE 0.1 Th/cmm (0.3-1.0); NEUTROPHILE ABSOLUTE 1.5 Th/cmm (1.8-8.0); PLATELET COUNT 247 Th/cmm (150-400); RED BLOOD COUNT 3.29 Mil/cmm (3.80-5.10); RED CELL DISTRIBUTION WIDTH 15.9 % (11.5-20.0)
[2018-03-07 05:12] LABS: WHITE BLOOD COUNT 2.6 Th/cmm (4.8-10.8)
[2018-03-07] MEDS: INSULIN ASPART SLIDING SCALE 100 UNITS/ML UNIT SUBQ SCH ×2 (08:22→12:01)
[2018-03-07] MEDS: Enoxaparin 40 mg/0.4 mL 0.4mL Syr SUBQ SCH (08:22)
[2018-03-07] MEDS: Pantoprazole 40 mg EC Tab PO SCH (08:25)
[2018-03-07] MEDS: buPROPion XL 150 mg T 24 H PO SCH (08:26)
--- NOTE | 2018-03-07 10:26 | General Progress Note ---
Subjective - Review of Systems Service Date: 03/07/18 Objective - Results Result Diagrams: 03/07/18 04:25 03/05/18 04:19 Recent Labs: Laboratory Last Values WBC 2.6 Th/cmm (4.8-10.8) L 03/07/18 04:25 RBC 3.29 Mil/cmm (3.80-5.10) L 03/07/18 04:25 Hgb 9.8 gm/dL (12-16) L 03/07/18 04:25 Hct 29.4 % (41.0-60) L 03/07/18 04:25 MCV 89.4 fl (81-100) 03/07/18 04:25 MCH 29.9 pg (27.0-31.0) 03/07/18 04:25 MCHC Differential 33.5 pg (28.0-36.0) 03/07/18 04:25 RDW 15.9 % (11.5-20.0) 03/07/18 04:25 Plt Count 247 Th/cmm (150-400) 03/07/18 04:25 MPV 7.3 fl 03/07/18 04:25 Neutrophils % 54.6 % (40.0-80.0) 03/07/18 04:25 Lymphocytes % 38.8 % (20.0-50.0) 03/07/18 04:25 Monocytes % 4.8 % (2.0-10.0) 03/07/18 04:25 Eosinophils % 1.5 % (0.0-5.0) 03/07/18 04:25 Basophils % 0.3 % (0.0-2.0) 03/07/18 04:25 D-Dimer 500 ng/mL (100-400) H 03/04/18 18:55 Sodium 137 mEq/L (136-145) 03/05/18 04:19 Potassium 4.1 mEq/L (3.5-5.1) 03/05/18 04:19 Chloride 104 mEq/L (98-107) 03/05/18 04:19 Carbon Dioxide 26.1 mEq/L (21.0-31.0) 03/05/18 04:19 Anion Gap 11.0 (7.0-16.0) 03/05/18 04:19 BUN 9 mg/dL (7-25) 03/05/18 04:19 Creatinine 0.6 mg/dL (0.6-1.2) 03/05/18 04:19 Est GFR ( Amer) > 60.0 ml/min (>90) 03/05/18 04:19 Est GFR (Non-Af Amer) > 60.0 ml/min 03/05/18 04:19 BUN/Creatinine Ratio 15.0 03/05/18 04:19 Glucose 156 mg/dL (70-105) H 03/05/18 04:19 POC Glucose 196 MG/DL (70 - 105) H 03/07/18 06:37 Whole Bld Lactic Acid 1.52 mmol/L (0.60-1.99) 03/05/18 04:19 Calcium 8.8 mg/dL (8.6-10.3) 03/05/18 04:19 Phosphorus 3.4 mg/dL (2.5-5.0) 03/04/18 18:55 Magnesium 1.8 mg/dL (1.9-2.7) L 03/04/18 18:55 Total Bilirubin 1.4 mg/dL (0.3-1.0) H 03/04/18 18:55 AST 99 U/L (13-39) H 03/04/18 18:55 ALT 160 U/L (7-52) H 03/04/18 18:55 Alkaline Phosphatase 69 U/L (34-104) 03/04/18 18:55 Troponin I 0.03 ng/mL (0.01-0.05) 03/04/18 18:55 Total Protein 6.3 gm/dL (6.0-8.3) 03/04/18 18:55 Albumin 4.0 gm/dL (3.7-5.3) 03/04/18 18:55 Globulin 2.3 gm/dL 03/04/18 18:55 Albumin/Globulin Ratio 1.7 (1.0-1.8) 03/04/18 18:55 Urine Source CLEAN C 03/04/18 17:49 Urine Color YELLOW 03/04/18 17:49 Urine Clarity CLEAR (CLEAR) 03/04/18 17:49 Urine pH 6.0 (4.6 - 8.0) 03/04/18 17:49 Ur Specific [place] 1.010 (1.005-1.030) 03/04/18 17:49 Urine Protein NEGATIVE mg/dL (NEGATIVE) 03/04/18 17:49 Urine Glucose (UA) 100 mg/dL (NEGATIVE) H 03/04/18 17:49 Urine Ketones NEGATIVE mg/dL (NEGATIVE) 03/04/18 17:49 Urine Blood TRACE (NEGATIVE) 03/04/18 17:49 Urine Nitrate NEGATIVE (NEGATIVE) 03/04/18 17:49 Urine Bilirubin NEGATIVE (NEGATIVE) 03/04/18 17:49 Urine Urobilinogen 0.2 E.U./dL (0.2 - 1.0) 03/04/18 17:49 Ur Leukocyte Esterase TRACE (NEGATIVE) H 03/04/18 17:49 Urine RBC 0-2 /hpf (0-5) 03/04/18 17:49 Urine WBC 2-5 /hpf (0-5) 03/04/18 17:49 Ur Epithelial Cells MODERATE /lpf (FEW) 03/04/18 17:49 Urine Bacteria FEW /hpf (NONE SEEN) 03/04/18 17:49 Urine Opiates Screen NEGATIVE (NEGATIVE) 03/04/18 17:52 Urine Methadone Screen NEGATIVE (NEGATIVE) 03/04/18 17:52 Ur Barbiturates Screen NEGATIVE (NEGATIVE) 03/04/18 17:52 Ur Tricyclics Screen NEGATIVE (NEGATIVE) 03/04/18 17:52 Ur Phencyclidine Scrn NEGATIVE (NEGATIVE) 03/04/18 17:52 Amphetamines Screen NEGATIVE (NEGATIVE) 03/04/18 17:52 U Methamphetamines Scrn NEGATIVE (NEGATIVE) 03/04/18 17:52 U Benzodiazepines Scrn NEGATIVE (NEGATIVE) 03/04/18 17:52 U Cocaine Metab Screen NEGATIVE (NEGATIVE) 03/04/18 17:52 U Cannabinoids Screen NEGATIVE (NEGATIVE) 03/04/18 17:52 - Physical Exam Vitals and I&O: Vital Signs Temp 96.8 F 03/07/18 07:44 Pulse 86 03/07/18 08:25 Resp 16 03/07/18 09:37 BP 104/66 03/07/18 08:25 Pulse Ox 98 03/07/18 07:44 Intake & Output 03/06/18 03/07/18 03/07/18 18:59 06:59 18:59 Intake Total 100 2188.833 Balance 100 2188.833 Weight (lbs) 96.615 kg Intake: Intake, IV Amount 100 388.833 Azithromycin 500 mg In 250 Sodium Chloride 0.9% 250 ml @ 250 mls/hr IV Q24HR [facility] Rx#:[id number] D5-0.45NS 1,000 ml @ 10 38.833 mls/hr IV .Q24H [facility] Rx#: [id number] Piperacillin Sodium/ 100 100 Tazobact 3.375 gm In Sodium Chloride 0.9% 50 ml @ 100 mls/hr IV Q6HR [facility] Rx#:[id number] Oral 1800 Other: # Voids 2 # Bowel Movements 0 Weight Source Bedscale Active Medications: Current Medications Bupropion HCl (Wellbutrin Xl) 300 mg PO DAILY [facility] Stop: 05/05/18 08:59 Last Admin: 03/07/18 08:26 Dose: 300 mg Docusate Sodium (Colace) 100 mg PO DAILY [facility] Stop: 05/05/18 08:59 Last Admin: 03/07/18 08:31 Dose: Not Given Enoxaparin Sodium (Lovenox) 40 mg SUBQ DAILY [facility] Stop: 05/05/18 08:59 Last Admin: 03/07/18 08:22 Dose: 40 mg Gabapentin (Neurontin) 300 mg PO TID [facility] Stop: 05/04/18 13:59 Last Admin: 03/07/18 08:25 Dose: 300 mg Hydromorphone HCl (Dilaudid) 2 mg IVP Q4HR PRN PRN Reason: Pain (Severe) LEVEL 7-10 Stop: 05/03/18 22:15 Last Admin: 03/05/18 09:35 Dose: 2 mg Piperacillin Sod/Tazobactam (Sod 3.375 gm/ Sodium Chloride) 50 mls @ 100 mls/ hr IV Q6HR [facility] Stop: 05/04/18 00:00 Last Infusion: 03/07/18 06:16 Dose: Infused Dextrose/Sodium Chloride (D5-0.45ns) 1,000 mls @ 10 mls/hr IV .Q24H [facility] Stop: 05/03/18 23:44 Last Infusion: 03/07/18 06:00 Dose: 10 mls/hr Azithromycin 500 mg/ Sodium (Chloride) 250 mls @ 250 mls/hr IV Q24HR [facility] Stop: 05/04/18 02:29 Last Infusion: 03/07/18 03:06 Dose: Infused Insulin Aspart (Novolog Insulin Sliding Scale) 0 units SUBQ ACHS [facility]; Protocol Stop: 05/04/18 00:10 Last Admin: 03/07/18 08:22 Dose: 2 units Metformin HCl (Glucophage) 500 mg PO TIDWM [facility] Stop: 05/04/18 11:59 Last Admin: 03/07/18 08:25 Dose: 500 mg Metoprolol Tartrate (Lopressor) 25 mg PO DAILY [facility] Stop: 05/05/18 08:59 Last Admin: 03/07/18 08:25 Dose: 25 mg Ondansetron HCl (Zofran) 4 mg IV Q4H PRN PRN Reason: Nausea / Vomiting Stop: 05/03/18 23:39 Last Admin: 03/07/18 06:52 Dose: 4 mg Pantoprazole Sodium (Protonix) 40 mg PO DAILY [facility] Stop: 05/05/18 08:59 Last Admin: 03/07/18 08:25 Dose: 40 mg Simvastatin (Zocor) 40 mg PO HS [facility]; Protocol Stop: 05/05/18 20:59 Last Admin: 03/06/18 20:48 Dose: 40 mg Temazepam (Restoril) 15 mg PO HS PRN; Protocol PRN Reason: Insomnia Stop: 05/04/18 11:23 Tramadol HCl (Ultram) 50 mg PO Q6H PRN PRN Reason: Pain (Moderate) Stop: 05/04/18 11:18 General: Alert, Oriented x3, Cooperative HEENT: Atraumatic, PERRLA, EOMI Neck: Supple, JVD (no), LAD, Other Cardiovascular: Normal S1, Normal S2 Lungs: Clear to auscultation Abdomen: Bowel sounds, Soft Extremities: Cyanosis (no ) Assessment/Plan - Assessment Assessment: Leukopenia secondary to chemotherapy. The patient is not neutropenic and continue to monitor the WBC without Neupogen for now. 2. Breast cancer is undergoing chemotherapy with mild persistent leukopenia. 3. Abnormal liver functions and bilirubin. This has been abnormal on previous admission. The patient has gallstones and currently on antibiotics ____ and Zosyn per the ID specialist. 4. Mild normocytic anemia, most likely related to chemotherapy. No transfusion is required. I will add DVT prophylaxis, Lovenox to the treatment regimen. Nutritional Asmnt/Malnutr-PDOC - Dietary Evaluation Malnutrition Findings (Please click <Entered> for more info): Nutritional Asmnt/Malnutrition Start: 03/05/18 12: 12 Text: Status: Complete Freq: Protocol: Document 03/05/18 12:12 [email or web address] (Rec: 03/05/18 12:14 [email or web address] ANANYA- [email or web address]) Nutritional Asmnt/Malnutrition Patient General Information Nutritional Screening High Risk Consult Diagnosis UTI, Leukopenia, Severe Weakness Pertinent Medical Hx/Surgical Hx Diabetes Subjective Information Spoke with patient and family member at bedside. States she is nauseous and unable to eat lunch. Patient appeared uncomfortable; diet education not appropriate at this time. Current Diet Order/ Nutrition Support 60gm CCHO Patient / S.O Not Indicated Pertinent Medications ABX, D5-0.45NS @10ml/hr, Colace, novolog, Metformin, Zofran, Prtonix Pertinent Labs Glucose 156-309 Nutritional Hx/Data Height 1.55 m Height (Calculated Centimeters) 154.9 Current Weight (lbs) 95.708 kg Weight (Calculated Kilograms) 95.7 Weight (Calculated Grams) 18456.0 [place] Body Weight 105 % [place] Body Weight 200 Body Mass Index (BMI) 39.9 Recent Weight Change No Weight Status Morbidly Obese GI Symptoms GI Symptoms None Last BM None noted since admission Difficult in: None Food Allergies No Cultural/Ethnic/Anabaptism Belief None indicated Usual diet at home Unknown Skin Integrity/Comment: [place] 20, 1+pitting edema, Intact Current %PO Good (75-100%) Estimated Nutritional Goals BEE in Kcals: Adj wt of IBW Calories/Kcals/Kg 25-30 kcal/kg Using Adj BW 59. 7kg Kcals Calculated ~5960-8547 kcal/day Protein: Adj wt of IBW Protein g/k-1.2 gm/kg Protein Calculated ~60-70 gm/day Fluid: ml ~3049-3408 ml/day (1 ml/day) Nutritional Problem 1. Problem Problem Altered nutrition related lab values related to Etiology uncontrolled hyperglycemia aeb Signs/Symptoms: Glucose 156-309 Intervention/Recommendation Comments 1. Continue 60 gm CCHO diet as tolerated by patient. 2. MD to continue to modify insulin regimen for optimal glycemic control. Expected Outcomes/Goals Expected Outcomes/Goals Oral intake >75% of meals, weight stable or trend toward IBW, nutrition related labs/ glucose noramlizes. F/U in3-5 days as MR (03/08-)
--- NOTE | 2018-03-07 12:15 | Infectious Disease Prog Note ---
Infectious Disease Subjective - Review of Systems Service Date: 03/07/18 Subjective: Doing better, no fever. Infectious Disease Objective - Results Result Diagrams: 03/07/18 04:25 03/05/18 04:19 Recent Labs: Laboratory Last Values WBC 2.6 Th/cmm (4.8-10.8) L 03/07/18 04:25 RBC 3.29 Mil/cmm (3.80-5.10) L 03/07/18 04:25 Hgb 9.8 gm/dL (12-16) L 03/07/18 04:25 Hct 29.4 % (41.0-60) L 03/07/18 04:25 MCV 89.4 fl (81-100) 03/07/18 04:25 MCH 29.9 pg (27.0-31.0) 03/07/18 04:25 MCHC Differential 33.5 pg (28.0-36.0) 03/07/18 04:25 RDW 15.9 % (11.5-20.0) 03/07/18 04:25 Plt Count 247 Th/cmm (150-400) 03/07/18 04:25 MPV 7.3 fl 03/07/18 04:25 Neutrophils % 54.6 % (40.0-80.0) 03/07/18 04:25 Lymphocytes % 38.8 % (20.0-50.0) 03/07/18 04:25 Monocytes % 4.8 % (2.0-10.0) 03/07/18 04:25 Eosinophils % 1.5 % (0.0-5.0) 03/07/18 04:25 Basophils % 0.3 % (0.0-2.0) 03/07/18 04:25 D-Dimer 500 ng/mL (100-400) H 03/04/18 18:55 Sodium 137 mEq/L (136-145) 03/05/18 04:19 Potassium 4.1 mEq/L (3.5-5.1) 03/05/18 04:19 Chloride 104 mEq/L (98-107) 03/05/18 04:19 Carbon Dioxide 26.1 mEq/L (21.0-31.0) 03/05/18 04:19 Anion Gap 11.0 (7.0-16.0) 03/05/18 04:19 BUN 9 mg/dL (7-25) 03/05/18 04:19 Creatinine 0.6 mg/dL (0.6-1.2) 03/05/18 04:19 Est GFR ( Amer) > 60.0 ml/min (>90) 03/05/18 04:19 Est GFR (Non-Af Amer) > 60.0 ml/min 03/05/18 04:19 BUN/Creatinine Ratio 15.0 03/05/18 04:19 Glucose 156 mg/dL (70-105) H 03/05/18 04:19 POC Glucose 191 MG/DL (70 - 105) H 03/07/18 11:53 Whole Bld Lactic Acid 1.52 mmol/L (0.60-1.99) 03/05/18 04:19 Calcium 8.8 mg/dL (8.6-10.3) 03/05/18 04:19 Phosphorus 3.4 mg/dL (2.5-5.0) 03/04/18 18:55 Magnesium 1.8 mg/dL (1.9-2.7) L 03/04/18 18:55 Total Bilirubin 1.4 mg/dL (0.3-1.0) H 03/04/18 18:55 AST 99 U/L (13-39) H 03/04/18 18:55 ALT 160 U/L (7-52) H 03/04/18 18:55 Alkaline Phosphatase 69 U/L (34-104) 03/04/18 18:55 Troponin I 0.03 ng/mL (0.01-0.05) 03/04/18 18:55 Total Protein 6.3 gm/dL (6.0-8.3) 03/04/18 18:55 Albumin 4.0 gm/dL (3.7-5.3) 03/04/18 18:55 Globulin 2.3 gm/dL 03/04/18 18:55 Albumin/Globulin Ratio 1.7 (1.0-1.8) 03/04/18 18:55 Urine Source CLEAN C 03/04/18 17:49 Urine Color YELLOW 03/04/18 17:49 Urine Clarity CLEAR (CLEAR) 03/04/18 17:49 Urine pH 6.0 (4.6 - 8.0) 03/04/18 17:49 Ur Specific [place] 1.010 (1.005-1.030) 03/04/18 17:49 Urine Protein NEGATIVE mg/dL (NEGATIVE) 03/04/18 17:49 Urine Glucose (UA) 100 mg/dL (NEGATIVE) H 03/04/18 17:49 Urine Ketones NEGATIVE mg/dL (NEGATIVE) 03/04/18 17:49 Urine Blood TRACE (NEGATIVE) 03/04/18 17:49 Urine Nitrate NEGATIVE (NEGATIVE) 03/04/18 17:49 Urine Bilirubin NEGATIVE (NEGATIVE) 03/04/18 17:49 Urine Urobilinogen 0.2 E.U./dL (0.2 - 1.0) 03/04/18 17:49 Ur Leukocyte Esterase TRACE (NEGATIVE) H 03/04/18 17:49 Urine RBC 0-2 /hpf (0-5) 03/04/18 17:49 Urine WBC 2-5 /hpf (0-5) 03/04/18 17:49 Ur Epithelial Cells MODERATE /lpf (FEW) 03/04/18 17:49 Urine Bacteria FEW /hpf (NONE SEEN) 03/04/18 17:49 Urine Opiates Screen NEGATIVE (NEGATIVE) 03/04/18 17:52 Urine Methadone Screen NEGATIVE (NEGATIVE) 03/04/18 17:52 Ur Barbiturates Screen NEGATIVE (NEGATIVE) 03/04/18 17:52 Ur Tricyclics Screen NEGATIVE (NEGATIVE) 03/04/18 17:52 Ur Phencyclidine Scrn NEGATIVE (NEGATIVE) 03/04/18 17:52 Amphetamines Screen NEGATIVE (NEGATIVE) 03/04/18 17:52 U Methamphetamines Scrn NEGATIVE (NEGATIVE) 03/04/18 17:52 U Benzodiazepines Scrn NEGATIVE (NEGATIVE) 03/04/18 17:52 U Cocaine Metab Screen NEGATIVE (NEGATIVE) 03/04/18 17:52 U Cannabinoids Screen NEGATIVE (NEGATIVE) 03/04/18 17:52 - Physical Exam Vitals and I&O: Vital Signs Temp 97.2 F 03/07/18 11:34 Pulse 72 03/07/18 11:34 Resp 17 03/07/18 11:34 BP 110/60 03/07/18 11:34 Pulse Ox 97 03/07/18 11:34 Intake & Output 03/06/18 03/07/18 03/07/18 18:59 06:59 18:59 Intake Total 100 2188.833 Balance 100 2188.833 Weight (lbs) 96.615 kg Intake: Intake, IV Amount 100 388.833 Azithromycin 500 mg In 250 Sodium Chloride 0.9% 250 ml @ 250 mls/hr IV Q24HR [facility] Rx#:[id number] D5-0.45NS 1,000 ml @ 10 38.833 mls/hr IV .Q24H [facility] Rx#: [id number] Piperacillin Sodium/ 100 100 Tazobact 3.375 gm In Sodium Chloride 0.9% 50 ml @ 100 mls/hr IV Q6HR [facility] Rx#:[id number] Oral 1800 Other: # Voids 2 # Bowel Movements 0 Weight Source Bedscale Active Medications: Current Medications Bupropion HCl (Wellbutrin Xl) 300 mg PO DAILY [facility] Stop: 05/05/18 08:59 Last Admin: 03/07/18 08:26 Dose: 300 mg Docusate Sodium (Colace) 100 mg PO DAILY [facility] Stop: 05/05/18 08:59 Last Admin: 03/07/18 08:31 Dose: Not Given Enoxaparin Sodium (Lovenox) 40 mg SUBQ DAILY [facility] Stop: 05/05/18 08:59 Last Admin: 03/07/18 08:22 Dose: 40 mg Gabapentin (Neurontin) 300 mg PO TID [facility] Stop: 05/04/18 13:59 Last Admin: 03/07/18 08:25 Dose: 300 mg Hydromorphone HCl (Dilaudid) 2 mg IVP Q4HR PRN PRN Reason: Pain (Severe) LEVEL 7-10 Stop: 05/03/18 22:15 Last Admin: 03/05/18 09:35 Dose: 2 mg Piperacillin Sod/Tazobactam (Sod 3.375 gm/ Sodium Chloride) 50 mls @ 100 mls/ hr IV Q6HR [facility] Stop: 05/04/18 00:00 Last Admin: 03/07/18 12:01 Dose: 100 mls/hr Dextrose/Sodium Chloride (D5-0.45ns) 1,000 mls @ 10 mls/hr IV .Q24H [facility] Stop: 05/03/18 23:44 Last Infusion: 03/07/18 06:00 Dose: 10 mls/hr Azithromycin 500 mg/ Sodium (Chloride) 250 mls @ 250 mls/hr IV Q24HR [facility] Stop: 05/04/18 02:29 Last Infusion: 03/07/18 03:06 Dose: Infused Insulin Aspart (Novolog Insulin Sliding Scale) 0 units SUBQ ACHS ANGY; Protocol Stop: 05/04/18 00:10 Last Admin: 03/07/18 12:01 Dose: 2 units Metformin HCl (Glucophage) 500 mg PO TIDWM [facility] Stop: 05/04/18 11:59 Last Admin: 03/07/18 08:25 Dose: 500 mg Metoprolol Tartrate (Lopressor) 25 mg PO DAILY ANGY Stop: 05/05/18 08:59 Last Admin: 03/07/18 08:25 Dose: 25 mg Ondansetron HCl (Zofran) 4 mg IV Q4H PRN PRN Reason: Nausea / Vomiting Stop: 05/03/18 23:39 Last Admin: 03/07/18 06:52 Dose: 4 mg Pantoprazole Sodium (Protonix) 40 mg PO DAILY ANGY Stop: 05/05/18 08:59 Last Admin: 03/07/18 08:25 Dose: 40 mg Simvastatin (Zocor) 40 mg PO HS ANGY; Protocol Stop: 05/05/18 20:59 Last Admin: 03/06/18 20:48 Dose: 40 mg Temazepam (Restoril) 15 mg PO HS PRN; Protocol PRN Reason: Insomnia Stop: 05/04/18 11:23 Tramadol HCl (Ultram) 50 mg PO Q6H PRN PRN Reason: Pain (Moderate) Stop: 05/04/18 11:18 General: no acute distress, well developed, well nourished HEENT: atraumatic, normocephalic, PERRLA Neck: supple, no thyromegaly Cardiovascular: S1S2, regular Lungs: clear to auscultation bilaterally, clear to percussion Abdomen: soft, no tender, no distended, no rebound Extremities: no cyanosis, no clubbing Neurological: awake, alert, oriented Skin: intact Infectious Disease Assmt/Plan - Assessment Assessment: 1. Urinary tract infection. 2. Right lower lobe pneumonia. 3. Diabetes mellitus type 2. 4. Obesity. 5. History of left breast carcinoma, followed by her contract consultant at [place]. 6. Neutropenia.. 7. Elevated liver enzymes, cholecystitis or colitis. - Plan Plan: change antibiotics to cipro po for 5 more days, Nutritional Asmnt/Malnutr-PDOC - Dietary Evaluation Malnutrition Findings (Please click <Entered> for more info): Nutritional Asmnt/Malnutrition Start: 03/05/18 12: 12 Text: Status: Complete Freq: Protocol: Document 03/05/18 12:12 CUBA (Rec: 03/05/18 12:14 CUBA [id number]) Nutritional Asmnt/Malnutrition Patient General Information Nutritional Screening High Risk Consult Diagnosis UTI, Leukopenia, Severe Weakness Pertinent Medical Hx/Surgical Hx Diabetes Subjective Information Spoke with patient and family member at bedside. States she is nauseous and unable to eat lunch. Patient appeared uncomfortable; diet education not appropriate at this time. Current Diet Order/ Nutrition Support 60gm CCHO Patient / S.O Not Indicated Pertinent Medications ABX, D5-0.45NS @10ml/hr, Colace, novolog, Metformin, Zofran, Prtonix Pertinent Labs Glucose 156-309 Nutritional Hx/Data Height 1.55 m Height (Calculated Centimeters) 154.9 Current Weight (lbs) 95.708 kg Weight (Calculated Kilograms) 95.7 Weight (Calculated Grams) 25628.0 Cade Body Weight 105 % Cade Body Weight 200 Body Mass Index (BMI) 39.9 Recent Weight Change No Weight Status Morbidly Obese GI Symptoms GI Symptoms None Last BM None noted since admission Difficult in: None Food Allergies No Cultural/Ethnic/Sikh Belief None indicated Usual diet at home Unknown Skin Integrity/Comment: Jarvis 20, 1+pitting edema, Intact Current %PO Good (75-100%) Estimated Nutritional Goals BEE in Kcals: Adj wt of IBW Calories/Kcals/Kg 25-30 kcal/kg Using Adj BW 59. 7kg Kcals Calculated ~4093-6606 kcal/day Protein: Adj wt of IBW Protein g/k-1.2 gm/kg Protein Calculated ~60-70 gm/day Fluid: ml ~6983-0666 ml/day (1 ml/day) Nutritional Problem 1. Problem Problem Altered nutrition related lab values related to Etiology uncontrolled hyperglycemia aeb Signs/Symptoms: Glucose 156-309 Intervention/Recommendation Comments 1. Continue 60 gm CCHO diet as tolerated by patient. 2. MD to continue to modify insulin regimen for optimal glycemic control. Expected Outcomes/Goals Expected Outcomes/Goals Oral intake >75% of meals, weight stable or trend toward IBW, nutrition related labs/ glucose noramlizes. F/U in3-5 days as MR (03/08-)
--- NOTE | 2018-03-08 00:33 | Discharge Summary ---
DATE OF DISCHARGE: 03/07/2018 The patient has been admitted to the telemetry from the Emergency Room secondary to the weakness and septic shock and increased lactic acidosis and urinary tract infection. The patient was admitted to the telemetry and fluids were continued and antibiotics were given. Dr. Alexis Noriega's consult was sought for the Infectious Disease and the patient is a known cancer patient, who is on chemotherapy for the breast CA and Dr. Dow has also been consulted secondary to her leukopenia and he saw the patient and he reconfirmed that the leukopenia is secondary to her chemotherapy and he started her on Lovenox prophylaxis for DVT and overall the patient did well and had on the day 2, she had vomiting and nausea but now on the day of discharge, the patient does not have any vomiting or nausea and then she has been okay, looks much better, color is back in her face and she is happy to go home and discussed with Dr. Alexis Noriega and reviewed the urine culture. Urine culture grew only normal grey. So, hence the patient was discharged on ciprofloxacin as per ID. PHYSICAL EXAMINATION ON DISCHARGE: GENERAL: Awake and alert and weakness has improved tremendously. VITAL SIGNS: Her vital signs remained stable. Temperature 97.8, blood pressure 113/63, pulse 76, respirations 18, and saturating 98% on the room air. HEENT: Head is atraumatic and normocephalic. Eyes: Pupils are reactive to light equally and bilaterally. NECK: Supple. No JVD. LUNGS: Clear to auscultate. CARDIAC: S1, S2 heard. ABDOMEN: No mass palpable and bowel sounds are present, no CVA tenderness noted. EXTREMITIES: No clubbing, no cyanosis and no edema. ASSESSMENT AT THE TIME OF DISCHARGE: 1. Urinary tract infection. 2. Right lower lobe pneumonia per the chest x-ray. 3. Severe leukopenia. 4. Diabetes mellitus type 2. 5. Obesity. 6. History of right breast carcinoma status post mastectomy. 7. On chemotherapy. 8. Elevated liver enzymes. 9. Severe generalized weakness, resolved. 10. Elevated lactic acid on admission, which was resolved. 11. History of septic shock, resolved by fluid administration and antibiotics. 12. Full code. PLAN: So, the plan is to discharge as per the advice of Dr. Alexis Noriega, Infectious Disease on ciprofloxacin and the patient will be followed up in my office with me in 1 week and she is advised to follow her Oncology for her chemotherapy in [place] with Dr. Pickard,the oncologist. [facility]# [id number] MTDD
== END 2018-03-07 16:32 | disposition home or self-care (01) | DRG 720 ==
LOC: ER 17:15 → TELE 21:15
PROVIDERS: ADMIT General Practice; ATTEND General Practice
DX: A41.9 Sepsis, unspecified organism (principal); E87.2 Acidosis; J18.1 Lobar pneumonia, unspecified organism; D89.9 Disorder involving the immune mechanism, unspecified; D70.9 Neutropenia, unspecified; D70.1 Agranulocytosis secondary to cancer chemotherapy; C50.911 Malignant neoplasm of unspecified site of right female breast; K81.9 Cholecystitis, unspecified; E11.9 Type 2 diabetes mellitus without complications; N39.0 Urinary tract infection, site not specified; R53.83 Other fatigue; E66.9 Obesity, unspecified; R30.0 Dysuria; T38.6X5A Adverse effect of antigonadotrophins, antiestrogens, antiandrogens, not elsewhere classified, initial encounter; Y92.89 Other specified places as the place of occurrence of the external cause; D64.9 Anemia, unspecified; Z90.11 Acquired absence of right breast and nipple; Z83.3 Family history of diabetes mellitus; Z82.49 Family history of ischemic heart disease and other diseases of the circulatory system; Z79.4 Long term (current) use of insulin
CPT/HCPCS: 36415-UA; 71045-TC; 80048-TC; 80053-TC; 80307; 81001-TC; 82948-90; 83036-90; 83605; 83735-TC; 84100-TC; 84484-TC; 85025-TC; 85379-TC; 87086-90; 93005; 96375; J0456; J1170; J1650; J1815; J2270; J2405; J2543; Z7610